=== PATIENT | female | born 1940 | race Caucasian/White ===

== ENCOUNTER 2019-01-27 06:24 | Emergency (ER) | payer MEDICARE ==
[~2019-01-27] VITALS: Ht 165.1 cm; Wt 94.3 kg
[2019-01-27 06:25] VITALS: BP 134/67
[2019-01-27] MEDS ORDERED: CLIN300C8 PO (07:07)
--- NOTE | 2019-01-27 07:09 | PHYS DOC ---
Past Medical History Past Medical History: Anemia, Diabetes-Type II, Hypertension Past Surgical History: Hip Replacement Alcohol Use: None Drug Use: None Adult General Chief Complaint Chief Complaint: DENTAL PROBLEM HPI HPI 78-year-old female presenting with left-sided dental pain with swelling. [facility]. Her physician is Dr. Escudero who asked that the patient be seen by dentistry. She is been having this pain and swelling for 2 days. She denies any fevers or chills. ROS: neg for cp/n/v/f/c. All other review of systems is negative unless otherwise noted in history of present illness. ED course: 78-year-old female presenting with dental pain. She has a periapical abscess in the left lower jaw on examination. We do not have Hospital dentistry funeral location manager. Pts vitals signs are wnl here. Pt is afebrile and well appearing. I spoke with Dr. Escudero and informed him that not have Hospital dentistry funeral location manager. The patient is well-appearing with normal vital signs and I believe can have this performed in the outpatient setting. We'll give the patient a dose of IV antibiotics here in the emergency department. We will discharge patient home with oral antibiotics to follow-up with Hospital dentistry or to return for worsening symptoms or any other concerns by [facility] staff. group home has dentist funeral location manager that comes to see pts. Recommend being seen today or tomorrow. Otherwise if cannot be seen soon we can get the pt transferred to a facility with funeral location manager hospital dentistry. Review of Systems Review of Systems SEE ABOVE. Current Medications Current Medications Current Medications Medications (Trade) Dose Ordered Sig/Chris Start Time Stop Time Status Last Admin Dose Admin Clindamycin Phosphate 50 ml @ 100 mls/hr 1X ONCE 01/27/19 07:15 01/27/19 07:44 Allergies Allergies Allergies Coded Allergies Type Severity Reaction Last Updated Verified Penicillins Allergy Intermediate 01/27/19 Yes Physical Exam Physical Exam SEE ABOVE Constitutional: Well developed, well nourished, no acute distress, non-toxic appearance. [] HENT: Normocephalic, atraumatic, bilateral external ears normal, oropharynx moist, no oral exudates, nose normal. The patient has a. Pt has a periapical abscess in the left jaw. Eyes: PERRLA, EOMI, conjunctiva normal, no discharge. [] Neck: Normal range of motion, no tenderness, supple, no stridor. [] Cardiovascular:Heart rate regular rhythm, no murmur [] Lungs & Thorax: Bilateral breath sounds clear to auscultation [] Abdomen: Bowel sounds normal, soft, no tenderness, no masses, no pulsatile masses. [] Skin: Warm, dry, no erythema, no rash. [] Back: No tenderness, no CVA tenderness. [] Extremities: No tenderness, no cyanosis, no clubbing, ROM intact, no edema. [] Neurologic: Alert and oriented X 3, normal motor function, normal sensory function, no focal deficits noted. [] Psychologic: Affect normal, judgement normal, mood normal. [] Current Patient Data Vital Signs Vital Signs Date Time Temp Pulse Resp B/P (MAP) Pulse Ox O2 Delivery O2 Flow Rate FiO2 01/27/19 06:25 98.0 71 18 134/67 (89) 95 Room Air 98.0 EKG EKG [] Radiology/Procedures Radiology/Procedures [] Course & Med Decision Making Course & Med Decision Making Pertinent Labs and Imaging studies reviewed. (See chart for details) [] Dragon Disclaimer Dragon Disclaimer This electronic medical record was generated, in whole or in part, using a voice recognition dictation system. Departure Departure Impression: Primary Impression: Dental abscess Disposition: 01 HOME, SELF-CARE Condition: STABLE Referrals: NO PCP (PCP) CARD,JESSI Knight DMD In 1-2 days. Additional Instructions: Thank you for allowing us to participate in your care today. Return to the emergency department you have any new or worsening symptoms, or if you are concerned for any reason. Return to emergency department if you have any new or concerning symptoms including but not limited to fever, chills, nausea, vomiting, intractable pain, any new rashes, chest pain, shortness of air, uncontrolled bleeding, difficulty breathing, and/or vision loss. Follow up with your dentist within 1-2 days. Return to the emergency department in 2 days if your unable to see a dentist. Call your Primary Doctor tomorrow and inform them of your visit today. If you do not have a primary care provider we are happy to provide you with a list of our primary care providers [facility] inf [facility]. This condition should be evaluated by your primary care physician and any recommended consulting services for continued management within 2 days after discharge. If at any time, you are having difficulty getting into your primary care doctor or a specialist, return to the emergency department. Scripts Clindamycin Hcl (CLINDAMYCIN HCL) 300 Mg Capsule 1 CAP PO TID, #21 CAP Prov: VENKATESH ISLAS MD 01/27/19 VENKATESH ISLAS MD Jan 27, 2019 07:09
[2019-01-27] MEDS ORDERED: CLINDAMYCIN 600MG PREMIX 50 ML IV ONE (07:15)
--- NOTE | 2019-01-31 10:49 | NUR ---
Late entry made to Medical Record. IV Stop time transcribed from eMAR to IV spreadsheet
== END 2019-01-27 08:34 | disposition home or self-care (01) ==
LOC: ER 06:24
DX: K04.7 Periapical abscess without sinus (principal); E11.9 Type 2 diabetes mellitus without complications; I10 Essential (primary) hypertension; Z88.0 Allergy status to penicillin
CPT/HCPCS: 96365; 99284; J3490

== ENCOUNTER 2019-05-22 14:10 | Emergency (ER) | payer MEDICARE, OTHER ==
[~2019-05-22] VITALS: Ht 165.1 cm; Wt 92.5 kg
[~2019-05-22 14:10] MED LIST: CLIN300C8 PO
[2019-05-22] MEDS ORDERED: CLIN300C8 PO (16:10)
--- NOTE | 2019-05-22 16:11 | PHYS DOC ---
Past Medical History Past Medical History: Anemia, Diabetes-Type II, Hypertension (JOELLEN CARRASQUILLO APRN) Past Surgical History: Hip Replacement (JOELLEN CARRASQUILLO APRN) Alcohol Use: None Drug Use: None (JOELLEN CARRASQUILLO APRN) Attending Signature I have participated in the care of this patient and I have reviewed and agree with all pertinent clinical information above including history, exam, and recommendations. (JOE REY MD) Adult General Chief Complaint Chief Complaint: DENTAL PROBLEM HPI HPI Patient is a 79 year old Female who presents with with dental pain for months. Patient was last seen here for dental pain in January. At that time she had a periapical abscess. Patient has no facial swelling but does have lower front gumline redness and swelling with dental caries. Patient rates her pain at a 10. (JOELLEN CARRASQUILLO APRN) Review of Systems Review of Systems HENT: Denies nasal congestion or sore throat. Dental pain. [] All other systems were reviewed and found to be within normal limits, except as documented in this note. (JOELLEN CARRASQUILLO APRN) Current Medications Current Medications Current Medications Medications (Trade) Dose Ordered Sig/Chris Start Time Stop Time Status Last Admin Dose Admin Clindamycin Phosphate 50 ml @ 100 mls/hr 1X ONCE 05/22/19 17:00 05/22/19 17:29 DC 05/22/19 17:09 100 MLS/HR (JOE REY MD) Allergies Allergies Allergies Coded Allergies Type Severity Reaction Last Updated Verified Penicillins Allergy Intermediate 01/27/19 Yes (JOE REY MD) Physical Exam Physical Exam Constitutional: Well developed, well nourished, no acute distress, non-toxic appearance. [] HENT: Normocephalic, atraumatic, bilateral external ears normal, oropharynx moist, no oral exudates, nose normal. Front lower gumline tenderness and redness. [] Neck: Normal range of motion, no tenderness, supple, no stridor. [] Skin: Warm, dry, no erythema, no rash. [] Neurologic: Alert and oriented X 3, normal motor function, normal sensory function, no focal deficits noted. [] Psychologic: Affect normal, judgement normal, mood normal. [] (JOELLEN CARRASQUILLO APRN) Current Patient Data Vital Signs Vital Signs Date Time Temp Pulse Resp B/P (MAP) Pulse Ox O2 Delivery O2 Flow Rate FiO2 05/22/19 19:10 58 16 121/59 (79) 95 Room Air 05/22/19 14:10 98.4 98.4 (JOE REY MD) Lab Values Laboratory Tests Test 05/22/19 17:05 05/22/19 17:20 White Blood Count 6.5 x10^3/uL (4.0-11.0) Red Blood Count 4.33 x10^6/uL (3.50-5.40) Hemoglobin 12.8 g/dL (12.0-15.5) Hematocrit 38.2 % (36.0-47.0) Mean Corpuscular Volume 88 fL (79-100) Mean Corpuscular Hemoglobin 30 pg (25-35) Mean Corpuscular Hemoglobin Concent 34 g/dL (31-37) Red Cell Distribution Width 17.8 % (11.5-14.5) H Platelet Count 252 x10^3/uL (140-400) Neutrophils (%) (Auto) 57 % (31-73) Lymphocytes (%) (Auto) 30 % (24-48) Monocytes (%) (Auto) 10 % (0-9) H Eosinophils (%) (Auto) 2 % (0-3) Basophils (%) (Auto) 1 % (0-3) Neutrophils # (Auto) 3.8 x10^3/uL (1.8-7.7) Lymphocytes # (Auto) 1.9 x10^3/uL (1.0-4.8) Monocytes # (Auto) 0.7 x10^3/uL (0.0-1.1) Eosinophils # (Auto) 0.1 x10^3/uL (0.0-0.7) Basophils # (Auto) 0.1 x10^3/uL (0.0-0.2) Sodium Level 141 mmol/L (136-145) Potassium Level 4.2 mmol/L (3.5-5.1) Chloride Level 103 mmol/L (98-107) Carbon Dioxide Level 35 mmol/L (21-32) H Anion Gap 3 (6-14) L Blood Urea Nitrogen 20 mg/dL (7-20) Creatinine 1.0 mg/dL (0.6-1.0) Estimated GFR (Cockcroft-Gault) 53.8 Glucose Level 110 mg/dL (70-99) H Calcium Level 9.7 mg/dL (8.5-10.1) Laboratory Tests 05/22/19 17:05 Laboratory Tests 05/22/19 17:20 (JOE REY MD) Lab Values Laboratory Tests Test 05/22/19 17:05 05/22/19 17:20 White Blood Count 6.5 x10^3/uL (4.0-11.0) Red Blood Count 4.33 x10^6/uL (3.50-5.40) Hemoglobin 12.8 g/dL (12.0-15.5) Hematocrit 38.2 % (36.0-47.0) Mean Corpuscular Volume 88 fL (79-100) Mean Corpuscular Hemoglobin 30 pg (25-35) Mean Corpuscular Hemoglobin Concent 34 g/dL (31-37) Red Cell Distribution Width 17.8 % (11.5-14.5) H Platelet Count 252 x10^3/uL (140-400) Neutrophils (%) (Auto) 57 % (31-73) Lymphocytes (%) (Auto) 30 % (24-48) Monocytes (%) (Auto) 10 % (0-9) H Eosinophils (%) (Auto) 2 % (0-3) Basophils (%) (Auto) 1 % (0-3) Neutrophils # (Auto) 3.8 x10^3/uL (1.8-7.7) Lymphocytes # (Auto) 1.9 x10^3/uL (1.0-4.8) Monocytes # (Auto) 0.7 x10^3/uL (0.0-1.1) Eosinophils # (Auto) 0.1 x10^3/uL (0.0-0.7) Basophils # (Auto) 0.1 x10^3/uL (0.0-0.2) Sodium Level 141 mmol/L (136-145) Potassium Level 4.2 mmol/L (3.5-5.1) Chloride Level 103 mmol/L (98-107) Carbon Dioxide Level 35 mmol/L (21-32) H Anion Gap 3 (6-14) L Blood Urea Nitrogen 20 mg/dL (7-20) Creatinine 1.0 mg/dL (0.6-1.0) Estimated GFR (Cockcroft-Gault) 53.8 Glucose Level 110 mg/dL (70-99) H Calcium Level 9.7 mg/dL (8.5-10.1) Laboratory Tests 05/22/19 17:05 Laboratory Tests 05/22/19 17:20 (JOELLEN CARRASQUILLO APRN) EKG EKG [] (JOELLEN CARRASQUILLO APRN) Radiology/Procedures Radiology/Procedures [] (JOELLEN CARRASQUILLO APRN) Course & Med Decision Making Course & Med Decision Making No abscess is seen. No drainage from gumlines. No focal facial or mucosal tenderness with palpation. Afebrile. Patient is nontoxic appearing. Skin pink, warm and dry. Patient will be given Clindamycin and to follow up with a dentist as she had been directed in January. I was called by Nursing staff stating that Dr Pak request was that blood work be done and the patient receive Clindamycin by IV. Blood work unremarkable. Patient discharged home. (JOELLEN CARRASQUILLO APRN) Dragon Disclaimer Dragon Disclaimer This electronic medical record was generated, in whole or in part, using a voice recognition dictation system. (JOELLEN CARRASQUILLO APRN) Departure Departure Impression: Primary Impression: Pain, dental Disposition: 01 HOME, SELF-CARE Condition: STABLE Referrals: UNKNOWN PCP NAME (PCP) CARD,JESSI Knight DMD Patient Instructions: Dental Abscess, Dental Pain Additional Instructions: Follow up with the dentist as soon as possible. Take medications as prescribed. Scripts Oxycodone/Apap 5-325 (PERCOCET 5-325 MG TABLET ) 1 Each Tablet 1 TAB PO PRN Q6HRS PRN for PAIN, #10 TAB 0 Refills Prov: JOELLEN CARRASQUILLO APRN 05/22/19 Clindamycin Hcl (CLINDAMYCIN HCL) 300 Mg Capsule 1 CAP PO TID, #30 CAP Prov: JOELLEN CARRASQUILLO APRN 05/22/19 JOELLEN CARRASQUILLO APRN May 22, 2019 16:11 JOE REY MD May 24, 2019 18:17
[2019-05-22] MEDS ORDERED: OXYC1TAB15 PO (16:51)
--- NOTE | 2019-05-22 16:51 | PHYS DOC ---
Past Medical History Past Medical History: Anemia, Diabetes-Type II, Hypertension (JOELLEN CARRASQUILLO APRN) Past Surgical History: Hip Replacement (JOELLEN CARRASQUILLO APRN) Alcohol Use: None Drug Use: None (JOELLEN CARRASQUILLO APRN) Attending Signature I have participated in the care of this patient and I have reviewed and agree with all pertinent clinical information above including history, exam, and recommendations. (JOE REY MD) Adult General Chief Complaint Chief Complaint: DENTAL PROBLEM HPI HPI Please refer to other note. This entered in error. (JOELLEN CARRASQUILLO APRN) Review of Systems Review of Systems Constitutional: Denies fever or chills [] Eyes: Denies change in visual acuity, redness, or eye pain [] HENT: Denies nasal congestion or sore throat [] Respiratory: Denies cough or shortness of breath [] Cardiovascular: No additional information not addressed in HPI [] GI: Denies abdominal pain, nausea, vomiting, bloody stools or diarrhea [] : Denies dysuria or hematuria [] Musculoskeletal: Denies back pain or joint pain [] Integument: Denies rash or skin lesions [] Neurologic: Denies headache, focal weakness or sensory changes [] Endocrine: Denies polyuria or polydipsia [] All other systems were reviewed and found to be within normal limits, except as documented in this note. (JOELLEN CARRASQUILLO APRN) Current Medications Current Medications Current Medications Medications (Trade) Dose Ordered Sig/Chris Start Time Stop Time Status Last Admin Dose Admin Clindamycin Phosphate 50 ml @ 100 mls/hr 1X ONCE 05/22/19 17:00 05/22/19 17:29 DC 05/22/19 17:09 100 MLS/HR (JOE REY MD) Allergies Allergies Allergies Coded Allergies Type Severity Reaction Last Updated Verified Penicillins Allergy Intermediate 01/27/19 Yes (JOE REY MD) Physical Exam Physical Exam Constitutional: Well developed, well nourished, no acute distress, non-toxic appearance. [] HENT: Normocephalic, atraumatic, bilateral external ears normal, oropharynx moist, no oral exudates, nose normal. [] Eyes: PERRLA, EOMI, conjunctiva normal, no discharge. [] Neck: Normal range of motion, no tenderness, supple, no stridor. [] Cardiovascular:Heart rate regular rhythm, no murmur [] Lungs & Thorax: Bilateral breath sounds clear to auscultation [] Abdomen: Bowel sounds normal, soft, no tenderness, no masses, no pulsatile masses. [] Skin: Warm, dry, no erythema, no rash. [] Back: No tenderness, no CVA tenderness. [] Extremities: No tenderness, no cyanosis, no clubbing, ROM intact, no edema. [] Neurologic: Alert and oriented X 3, normal motor function, normal sensory function, no focal deficits noted. [] Psychologic: Affect normal, judgement normal, mood normal. [] (JOELLEN CARRASQUILLO APRN) Current Patient Data Vital Signs Vital Signs Date Time Temp Pulse Resp B/P (MAP) Pulse Ox O2 Delivery O2 Flow Rate FiO2 05/22/19 19:10 58 16 121/59 (79) 95 Room Air 05/22/19 14:10 98.4 98.4 (JOE REY MD) Lab Values Laboratory Tests Test 05/22/19 17:05 05/22/19 17:20 White Blood Count 6.5 x10^3/uL (4.0-11.0) Red Blood Count 4.33 x10^6/uL (3.50-5.40) Hemoglobin 12.8 g/dL (12.0-15.5) Hematocrit 38.2 % (36.0-47.0) Mean Corpuscular Volume 88 fL (79-100) Mean Corpuscular Hemoglobin 30 pg (25-35) Mean Corpuscular Hemoglobin Concent 34 g/dL (31-37) Red Cell Distribution Width 17.8 % (11.5-14.5) H Platelet Count 252 x10^3/uL (140-400) Neutrophils (%) (Auto) 57 % (31-73) Lymphocytes (%) (Auto) 30 % (24-48) Monocytes (%) (Auto) 10 % (0-9) H Eosinophils (%) (Auto) 2 % (0-3) Basophils (%) (Auto) 1 % (0-3) Neutrophils # (Auto) 3.8 x10^3/uL (1.8-7.7) Lymphocytes # (Auto) 1.9 x10^3/uL (1.0-4.8) Monocytes # (Auto) 0.7 x10^3/uL (0.0-1.1) Eosinophils # (Auto) 0.1 x10^3/uL (0.0-0.7) Basophils # (Auto) 0.1 x10^3/uL (0.0-0.2) Sodium Level 141 mmol/L (136-145) Potassium Level 4.2 mmol/L (3.5-5.1) Chloride Level 103 mmol/L (98-107) Carbon Dioxide Level 35 mmol/L (21-32) H Anion Gap 3 (6-14) L Blood Urea Nitrogen 20 mg/dL (7-20) Creatinine 1.0 mg/dL (0.6-1.0) Estimated GFR (Cockcroft-Gault) 53.8 Glucose Level 110 mg/dL (70-99) H Calcium Level 9.7 mg/dL (8.5-10.1) Laboratory Tests 05/22/19 17:05 Laboratory Tests 05/22/19 17:20 (JOE REY MD) Lab Values Laboratory Tests Test 05/22/19 17:05 05/22/19 17:20 White Blood Count 6.5 x10^3/uL (4.0-11.0) Red Blood Count 4.33 x10^6/uL (3.50-5.40) Hemoglobin 12.8 g/dL (12.0-15.5) Hematocrit 38.2 % (36.0-47.0) Mean Corpuscular Volume 88 fL (79-100) Mean Corpuscular Hemoglobin 30 pg (25-35) Mean Corpuscular Hemoglobin Concent 34 g/dL (31-37) Red Cell Distribution Width 17.8 % (11.5-14.5) H Platelet Count 252 x10^3/uL (140-400) Neutrophils (%) (Auto) 57 % (31-73) Lymphocytes (%) (Auto) 30 % (24-48) Monocytes (%) (Auto) 10 % (0-9) H Eosinophils (%) (Auto) 2 % (0-3) Basophils (%) (Auto) 1 % (0-3) Neutrophils # (Auto) 3.8 x10^3/uL (1.8-7.7) Lymphocytes # (Auto) 1.9 x10^3/uL (1.0-4.8) Monocytes # (Auto) 0.7 x10^3/uL (0.0-1.1) Eosinophils # (Auto) 0.1 x10^3/uL (0.0-0.7) Basophils # (Auto) 0.1 x10^3/uL (0.0-0.2) Sodium Level 141 mmol/L (136-145) Potassium Level 4.2 mmol/L (3.5-5.1) Chloride Level 103 mmol/L (98-107) Carbon Dioxide Level 35 mmol/L (21-32) H Anion Gap 3 (6-14) L Blood Urea Nitrogen 20 mg/dL (7-20) Creatinine 1.0 mg/dL (0.6-1.0) Estimated GFR (Cockcroft-Gault) 53.8 Glucose Level 110 mg/dL (70-99) H Calcium Level 9.7 mg/dL (8.5-10.1) Laboratory Tests 05/22/19 17:05 Laboratory Tests 05/22/19 17:20 (JOELLEN CARRASQUILLO APRN) EKG EKG [] (JOELLEN CARRASQUILLO APRN) Radiology/Procedures Radiology/Procedures [] (JOELLEN CARRASQUILLO APRN) Course & Med Decision Making Course & Med Decision Making Pertinent Labs and Imaging studies reviewed. (See chart for details) [] (JOELLEN CARRASQUILLO APRN) Dragon Disclaimer Dragon Disclaimer This electronic medical record was generated, in whole or in part, using a voice recognition dictation system. (JOELLEN CARRASQUILLO APRN) Departure Departure Impression: Primary Impression: Pain, dental Disposition: HOME/RESIDENCE PRIOR TO ADM Condition: STABLE Referrals: UNKNOWN PCP NAME (PCP) CARD,JESSI Knight DMD Patient Instructions: Dental Pain, Dental Abscess Additional Instructions: Follow up with the dentist as soon as possible. Take medications as prescribed. Scripts Oxycodone/Apap 5-325 (PERCOCET 5-325 MG TABLET ) 1 Each Tablet 1 TAB PO PRN Q6HRS PRN for PAIN, #10 TAB 0 Refills Prov: JOELLEN CARRASQUILLO APRN 05/22/19 Clindamycin Hcl (CLINDAMYCIN HCL) 300 Mg Capsule 1 CAP PO TID, #30 CAP Prov: JOELLEN CARRASQUILLO APRN 05/22/19 JOELLEN CARRASQUILLO APRN May 22, 2019 16:51 JOE REY MD May 24, 2019 18:21
[2019-05-22] MEDS ORDERED: CLINDAMYCIN 600MG PREMIX 50 ML IV ONE (17:00)
[2019-05-22 17:11] LABS: BASO # 0.1 x10^3/uL (0.0-0.2); BASO % 1 % (0-3); EOS # 0.1 x10^3/uL (0.0-0.7); EOS % 2 % (0-3); HEMATOCRIT 38.2 % (36.0-47.0); HEMOGLOBIN 12.8 g/dL (12.0-15.5); LYMPH # 1.9 x10^3/uL (1.0-4.8); LYMPH % 30 % (24-48); MEAN CORPUSCULAR HEMOGLOBIN 30 pg (25-35); MEAN CORPUSCULAR HGB CONC 34 g/dL (31-37); MEAN CORPUSCULAR VOLUME 88 fL (79-100); MONO # 0.7 x10^3/uL (0.0-1.1); MONO % 10 % (0-9); NEUT # 3.8 x10^3/uL (1.8-7.7); NEUT % 57 % (31-73); PLATELET COUNT 252 x10^3/uL (140-400); RED BLOOD COUNT 4.33 x10^6/uL (3.50-5.40); RED CELL DISTRIBUTION WIDTH 17.8 % (11.5-14.5); WHITE BLOOD COUNT 6.5 x10^3/uL (4.0-11.0)
[2019-05-22 17:49] LABS: CALCIUM 9.7 mg/dL (8.5-10.1); GFR 53.8; POTASSIUM 4.2 mmol/L (3.5-5.1)
[2019-05-22 19:10] VITALS: BP 121/59
== END 2019-05-22 19:53 | disposition home or self-care (01) ==
LOC: ER 14:10
DX: K08.89 Other specified disorders of teeth and supporting structures (principal); E11.9 Type 2 diabetes mellitus without complications; I10 Essential (primary) hypertension; Z96.649 Presence of unspecified artificial hip joint; Z88.0 Allergy status to penicillin
CPT/HCPCS: 36415; 80048; 85025; 96365; 99284; J3490

== ENCOUNTER 2020-04-18 13:22 | Inpatient (IN) | payer OTHER ==
[2020-04-18] VITALS (9 sets, daily range): BP systolic 101–126; BP diastolic 62–74
[~2020-04-18] VITALS: Ht 165.1 cm; Wt 93.2 kg
[~2020-04-18 13:22] MED LIST changes: +OXYC1TAB15 PO
--- NOTE | 2020-04-18 13:41 | PHYS DOC ---
Past Medical History Past Medical History: Anemia, Diabetes-Type II, Hypertension Past Surgical History: Hip Replacement Smoking Status: Former Smoker Alcohol Use: None Drug Use: None General Adult EDM: Chief Complaint: SHORTNESS OF BREATH HPI: HPI: Patient is a 80 year old arrives from a assisted with a chief complaint of shortness of breath. Patient tested positive for COVID-19 12 days ago but over the last day has had increased shortness of breath. Symptoms are worse with exertion. Patient was found to have sats in the 50s to 60s for EMS which impro hollie to the 70s and 80s with supplemental oxygen. Patient has some discomfort in her chest and has a cough. History and physical review of systems somewhat limited due to altered mental status Review of Systems: Review of Systems: Constitutional: Denies active fever Eyes: Denies change in visual acuity. [] HENT: Denies nasal congestion or sore throat. [] Respiratory: Complains of cough and shortness of breath Cardiovascular: Complains of chest discomfort GI: Denies abdominal pain, nausea, vomiting, bloody stools or diarrhea. [] : Denies dysuria. [] Musculoskeletal: Denies back pain or joint pain. [] Integument: Denies rash. [] Neurologic: Denies headache, focal weakness or sensory changes. [] Endocrine: Denies polyuria or polydipsia. [] Lymphatic: Denies swollen glands. [] Psychiatric: Denies depression or anxiety. [] Heart Score: Risk Factors: Risk Factors: DM, Current or recent (<one month) smoker, HTN, HLP, family history of CAD, obesity. Risk Scores: Score 0 - 3: 2.5% MACE over next 6 weeks - Discharge Home Score 4 - 6: 20.3% MACE over next 6 weeks - Admit for Clinical Observation Score 7 - 10: 72.7% MACE over next 6 weeks - Early Invasive Strategies Allergies: Allergies: Allergies Coded Allergies Type Severity Reaction Last Updated Verified Penicillins Allergy Intermediate 01/27/19 Yes Physical Exam: PE: Constitutional: Well developed, well nourished, mod respiratory distress, non- toxic appearance. [] HENT: Normocephalic, atraumatic, bilateral external ears normal, no trismus, nose normal. [] Eyes: PERRLA, EOMI, conjunctiva normal, no discharge. [] Neck: Normal range of motion, no tenderness, supple, no stridor. [] Cardiovascular: Tachycardia, irregularly irregular, peripheral pulses intact, cap refill brisk Lungs & Thorax: Labored breathing mild respiratory distress Abdomen: l, soft, no tenderness, no masses, no pulsatile masses. [] Skin: Warm, dry, no erythema, no rash. [] Back: No tenderness, no CVA tenderness. [] Extremities: No tenderness, no cyanosis, no clubbing, ROM intact, no edema. [] Neurologic: Alert and mildly confused, normal motor function, normal sensory function, no focal deficits noted. [] Psychologic: Affect normal, judgement normal, mood normal. [] Current Patient Data: Labs: Laboratory Tests Test 04/18/20 13:35 04/18/20 13:43 O2 Saturation 93 % Arterial Blood pH 7.51 Arterial Blood pCO2 at Patient Temp 34 mmHg Arterial Blood pO2 at Patient Temp 64 mmHg Arterial Blood HCO3 26 mmol/L Arterial Blood Base Excess 4 mmol/L Oxyhemoglobin 91.7 % Methemoglobin 0.5 % Carbon Monoxide, Quantitative 0.7 % FiO2 100 White Blood Count 14.5 x10^3/uL Red Blood Count 4.78 x10^6/uL Hemoglobin 14.1 g/dL Hematocrit 42.3 % Mean Corpuscular Volume 89 fL Mean Corpuscular Hemoglobin 30 pg Mean Corpuscular Hemoglobin Concent 33 g/dL Red Cell Distribution Width 15.4 % Platelet Count 460 x10^3/uL Neutrophils (%) (Auto) 80 % Lymphocytes (%) (Auto) 11 % Monocytes (%) (Auto) 8 % Eosinophils (%) (Auto) 0 % Basophils (%) (Auto) 0 % Neutrophils # (Auto) 11.6 x10^3/uL Lymphocytes # (Auto) 1.6 x10^3/uL Monocytes # (Auto) 1.2 x10^3/uL Eosinophils # (Auto) 0.1 x10^3/uL Basophils # (Auto) 0.0 x10^3/uL Prothrombin Time 15.5 SEC Prothromb Time International Ratio 1.3 Activated Partial Thromboplast Time 29 SEC Fibrinogen 656 mg/dL D-Dimer (Anyi) 2.34 ug/mlFEU Sodium Level 144 mmol/L Potassium Level 4.4 mmol/L Chloride Level 104 mmol/L Carbon Dioxide Level 30 mmol/L Anion Gap 10 Blood Urea Nitrogen 36 mg/dL Creatinine 0.9 mg/dL Estimated GFR (Cockcroft-Gault) 60.6 BUN/Creatinine Ratio 40 Glucose Level 162 mg/dL Lactic Acid Level 1.8 mmol/L Calcium Level 9.3 mg/dL Ferritin 1736 ng/mL Total Bilirubin 0.9 mg/dL Aspartate Amino Transf (AST/SGOT) 24 U/L Alanine Aminotransferase (ALT/SGPT) 27 U/L Alkaline Phosphatase 91 U/L Lactate Dehydrogenase 398 U/L Creatine Kinase 26 U/L Troponin I Quantitative < 0.017 ng/mL C-Reactive Protein, Quantitative 183.1 mg/L EQ-Spa-D-Type Natriuretic Peptide 722 pg/mL Total Protein 6.6 g/dL Albumin 2.2 g/dL Albumin/Globulin Ratio 0.5 Lipase 82 U/L Procalcitonin 0.31 ng/mL Current Medications Medications (Trade) Dose Ordered Sig/Chris Route PRN Reason Start Time Stop Time Status Last Admin Dose Admin Enoxaparin Sodium (Lovenox 80mg Syringe) 80 mg 1X ONCE SQ 04/18/20 14:15 04/18/20 14:16 DC Sterile Water (WATER for RESP) 1,000 ml CONT PRN INH VIA VAPOTHERM DEVICE 04/18/20 14:30 Iohexol (Omnipaque 350 Mg/ml) 100 ml 1X ONCE IV 04/18/20 14:30 04/18/20 14:31 DC Ondansetron HCl (Zofran) 4 mg PRN Q8HRS PRN IV NAUSEA/VOMITING 04/18/20 14:30 04/19/20 14:29 Vital Signs: Vital Signs Date Time Temp Pulse Resp B/P (MAP) Pulse Ox O2 Delivery O2 Flow Rate FiO2 04/18/20 14:12 93 VAPOTHERM 04/18/20 14:03 92 Vapotherm 30.0 04/18/20 14:00 106 122/68 (86) 93 NonRebreather Mask 15.0 04/18/20 13:45 110 125/82 (96) 93 NonRebreather Mask 15.0 04/18/20 13:30 97.9 120 36 121/89 (100) 83 Nasal Cannula 97.9 EKG: EKG: EKG interpreted by me irregularly irregular with a rate of 112 left axis deviation nonspecific ST changes normal QTC [] Radiology/Procedures: Radiology/Procedures: [][facility] [address] [place], [place] [id number] IMAGING REPORT Signed PATIENT: JEANNE MON ACCOUNT: [id number] : 1940 LOCATION: ER AGE: 80 SEX: F EXAM STATUS: REG ER ORD. PHYSICIAN: KEELY MOORE MD REASON: COVID, SOA PROCEDURE: PORTABLE CHEST 1V EXAM: PORTABLE CHEST 1V INDICATION: Reason: COVID, SOA / Spl. Instructions: / History: . TECHNIQUE: Single view COMPARISON: None FINDINGS: Heart is upper normal in size. Great vessels show aortic tortuosity. No hilar or mediastinal mass is appreciated. Lungs show diffuse coarse reticular densities bilaterally with low lung volumes. No pneumothorax. There is haziness to the right lung base that could represent the presence of a small right pleural effusion. Degenerative changes in the bilateral clavicular joints and in the left glenohumeral joint are noted. No acute fracture or aggressive appearing osseous lesions. IMPRESSION: Low lung volumes with diffuse coarse reticular opacities in the lungs bilaterally, compatible with provided history of atypical pneumonia. Electronically signed by: Melvin Carson MD (04/18/2020 2:30 PM) [id number] DICTATED and SIGNED BY: MELVIN CARSON MD DATE: 04/18/20 1430 Course & Med Decision Making: Course & Med Decision Making Pertinent Labs and Imaging studies reviewed. (See chart for details) [] 80-year-old female presents with hypoxic respiratory failure from COVID-19. Patient will be placed on high flow oxygen with improvement. On reassessment the patient's oxygen level is in the low 90s. Patient's labs are very abnormal and consistent with COVID-19. Patient will receive steroids as well as anticoagulation will need a CT angiogram and will be admitted up to the ICU to . Pulmonary will need to be consulted as well COVID-19 CRITERIA: The patient was evaluated during the global COVID-19 pandemic, and that diagnosis was suspected/considered upon their initial presentation. Their evaluation, treatment and testing was consistent with current guidelines for patients who present with complaints or symptoms that may be related to COVID-19. Critical care time was [35] minutes exclusive of procedures. Critical care time was [35] minutes which includes time at bedside, spent in discussion of patient's care with specialist and/or family members, with interpretation of laboratory and/or radiological studies and is exclusive of procedures. Critical condition: Respiratory failure, COVID-19 Critical interventions high flow oxygen, steroids, anticoagulation, admission ICU Dragon Disclaimer: Dragon Disclaimer: This electronic medical record was generated, in whole or in part, using a voice recognition dictation system. Departure Departure Impression: Primary Impression: COVID-19 Additional Impression: Respiratory failure Disposition: ADMITTED INPATIENT Admitting Physician: Madi. Cat Condition: CRITICAL Referrals: UNKNOWN PCP NAME (PCP) Justicifation of Admission Dx: Justifications for Admission: Justification of Admission Dx: Yes Respiratory Failure: Severe Resp Distress KEELY MOORE MD Apr 18, 2020 13:41
[2020-04-18 13:45] LABS: BASE EXCESS COOX 4 mmol/L (-3-3); HCO3 COOX 26 mmol/L (21-28); METHEMOGLOBIN 0.5 % (0.0-1.9); OXYHEMOGLOBIN 91.7 %; PCO2 COOX 34 mmHg (35-46); PO2 COOX 64 mmHg (65-108); SAT O2 COOX 93 % (92-99)
[2020-04-18 13:54] LABS: BASO % 0 % (0-3); EOS # 0.1 x10^3/uL (0.0-0.7); EOS % 0 % (0-3); HEMATOCRIT 42.3 % (36.0-47.0); HEMOGLOBIN 14.1 g/dL (12.0-15.5); LYMPH # 1.6 x10^3/uL (1.0-4.8); LYMPH % 11 % (24-48); MEAN CORPUSCULAR HEMOGLOBIN 30 pg (25-35); MEAN CORPUSCULAR HGB CONC 33 g/dL (31-37); MEAN CORPUSCULAR VOLUME 89 fL (79-100); MONO # 1.2 x10^3/uL (0.0-1.1); MONO % 8 % (0-9); NEUT # 11.6 x10^3/uL (1.8-7.7); NEUT % 80 % (31-73); PLATELET COUNT 460 x10^3/uL (140-400); RED BLOOD COUNT 4.78 x10^6/uL (3.50-5.40); RED CELL DISTRIBUTION WIDTH 15.4 % (11.5-14.5); WHITE BLOOD COUNT 14.5 x10^3/uL (4.0-11.0)
[2020-04-18 14:05] LABS: PROTHROMBIN TIME PATIENT 15.5 SEC (11.7-14.0)
[2020-04-18 14:08] LABS: CALCIUM 9.3 mg/dL (8.5-10.1); CREATININE 0.9 mg/dL (0.6-1.0); D-DIMER 2.34 ug/mlFEU (0.00-0.50); GFR 60.6; POTASSIUM 4.4 mmol/L (3.5-5.1)
--- NOTE | 2020-04-18 14:08 | EKG ---
[facility] [address] [place] [address] Test Date: 2020-04-18 Test Time: 13:33:13 Pat Name: JEANNE MON Department: Room: Gender: F [employer]k [employer]inter: : 1940 Requested By: KEELY MOORE Order Number: [id number] Reading MD: Measurements Intervals [place] Rate: 112 P: ME: QRS: -38 QRSD: 92 T: 78 QT: 316 QTc: 433 Interpretive Statements IRREGULAR RHYTHM, NO P-WAVE FOUND ABNORMAL LEFT AXIS DEVIATION R-S TRANSITION ZONE IN V LEADS DISPLACED TO THE LEFT LEFT ANTERIOR FASCICULAR BLOCK ST & T ABNORMALITY, CONSIDER HIGH LATERAL ISCHEMIA OR LEFT VENTRICULAR STRAIN ABNORMAL ECG RI6.02 No previous ECG available for comparison
[2020-04-18] MEDS ORDERED: IOHEXOL 350 MG/ML 100 ML VIAL. IV ONE (14:30)
[2020-04-18] MEDS ORDERED: ONDANSETRON PF 4 MG/2 ML VIAL. IV PRN (14:30)
--- NOTE | 2020-04-18 14:33 | RAD ---
EXAM: PORTABLE CHEST 1V INDICATION: Reason: COVID, SOA / Spl. Instructions: / History: . TECHNIQUE: Single view COMPARISON: None FINDINGS: Heart is upper normal in size. Great vessels show aortic tortuosity. No hilar or mediastinal mass is appreciated. Lungs show diffuse coarse reticular densities bilaterally with low lung volumes. No pneumothorax. There is haziness to the right lung base that could represent the presence of a small right pleural effusion. Degenerative changes in the bilateral clavicular joints and in the left glenohumeral joint are noted. No acute fracture or aggressive appearing osseous lesions. IMPRESSION: Low lung volumes with diffuse coarse reticular opacities in the lungs bilaterally, compatible with provided history of atypical pneumonia. Electronically signed by: Josefa Carson MD (04/18/2020 2:30 PM) [id number]
[2020-04-18 14:44] LABS: ALBUMIN 2.2 g/dL (3.4-5.0); ALBUMIN/GLOBULIN RATIO 0.5 (1.0-1.7); C-REACTIVE PROTEIN 183.1 mg/L (0-3.3); TOTAL BILIRUBIN 0.9 mg/dL (0.2-1.0); TOTAL PROTEIN 6.6 g/dL (6.4-8.2)
[2020-04-18] MEDS ORDERED: AZITHRMYCN 500MG IVPB FOR OMNI 250 ML IV ONE (15:15)
[2020-04-18] MEDS ORDERED: DEXAMETHASONE SOD PHOS 4 MG/ML VIAL IVP ONE (15:15)
[2020-04-18] MEDS ORDERED: cefTRIAXone IV Push 1 GM VIAL. IVP ONE (15:15)
[2020-04-18 16:10] LABS: BILIRUBIN,URINE MODERATE (NEG); NITRITE,URINE NEGATIVE (NEG); PROTEIN,URINE NEGATIVE (NEG-TRACE)
[2020-04-18 16:23] LABS: CLARITY,URINE CLEAR; COLOR,URINE YELLOW; HYALINE CASTS, URINE FEW /HPF; SQUAMOUS EPITHELIAL CELL,UR MOD /LPF
[2020-04-18 16:24] LABS: BACTERIA,URINE FEW /HPF (0-FEW)
--- NOTE | 2020-04-18 17:19 | RAD ---
Examination: CT ANGIOGRAPHY CHEST History: SOA, COVID POSITIVE. [id number] 100ML / Spl. Instructions: OKAY TO WAIT UNTIL RIGHT BEFORE TRANSPORT TO FLOOR / Comparison/Correlation: 04/18/2020 AP view of the chest Findings: Axial images of the chest were obtained following IV contrast according to pulmonary arteriography protocol. Sagittal and coronal reformatted images were provided. Maximum intensity projection images were provided. Left thyroid goiter noted. Nonenlarged superior mediastinal lymph nodes are present. Calcific involvement of the coronary arteries is noted. Multiple nonenlarged mediastinal lymph nodes are present. Scattered groundglass infiltrates are present throughout the lung jean greater on the right. Atelectatic consolidations are present scattered at the lung bases. Pulmonary arterial vasculature is unremarkable although evaluation may be limited in regions of atelectasis and consolidations. Thoracic aorta is unremarkable. Small hiatal hernia is present. No pneumothorax. No significant effusions. Fatty infiltration of the liver is present. Surgical clips involving the left upper abdomen. Multilevel degenerative disc space narrowing at the cervical spine noted. Bony bridging between 2 consecutive lower right ribs noted. Impression: No pulmonary arterial abnormalities although evaluation may be limited due to extensive patchy groundglass interstitial infiltrates and atelectasis. Infiltrates have a distribution which corresponds with reported history of COVID 19. Small hiatal hernia. PQRS Compliance Statement: One or more of the following individualized dose reduction techniques were utilized for this examination: 1. Automated exposure control 2. Adjustment of the mA and/or kV according to patient size 3. Use of iterative reconstruction technique Electronically signed by: Eulalio Kong MD (04/18/2020 5:16 PM) [facility]
[2020-04-18] MEDS ORDERED: PIP/TAZO PER PHARMACY MC PRN (18:30)
--- NOTE | 2020-04-18 18:41 | NUR ---
Patient admitted from the ER after being brought in by EMS because the retirement she lives in found her to have O2 sats 50-60's. Had been diagnosed a few weeks ago with COVID. Patient placed back on vapotherm @ 35L with 100% oxygen. Lungs are course throughout. No current complaints of cough. Patient found to have nasal cannula out of nose at one point since admit and oxygen 64%. Patient has limited historical information.
[2020-04-18] MEDS ORDERED: CYAN100031 PO (19:23)
[2020-04-18] MEDS ORDERED: POTA10TA6 PO (19:23)
[2020-04-18] MEDS ORDERED: GABA300C18 PO (19:23)
[2020-04-18] MEDS ORDERED: LISI-334 PO (19:23)
[2020-04-18] MEDS ORDERED: METF500T16 PO (19:23)
[2020-04-18] MEDS ORDERED: AMLO5TAB10 PO (19:23)
[2020-04-18] MEDS ORDERED: ASPI-630 PO (19:23)
[2020-04-18] MEDS ORDERED: ACET325T21 PO (19:23)
[2020-04-18] MEDS ORDERED: ERGO500027 PO (19:23)
[2020-04-18] MEDS ORDERED: FURO-68 PO (19:23)
[2020-04-18] MEDS ORDERED: ZINC220T3 PO (19:23)
[2020-04-18] MEDS: methylPREDNISolone SOD SUCC PF 40 MG/ML VIAL. IV SCH (22:26)
[2020-04-19] VITALS (24 sets, daily range): BP systolic 107–134; BP diastolic 56–78
[2020-04-19] MEDS: STERILE WATER for RESP 1,000 ML BAG. INH PRN ×2 (00:26→08:11)
[2020-04-19] MEDS: methylPREDNISolone SOD SUCC PF 40 MG/ML VIAL. IV SCH ×3 (05:58→21:30)
--- NOTE | 2020-04-19 06:47 | PDOC ---
Infectious Disease Note Vital Sign Vital Signs Vital Signs Date Time Temp Pulse Resp B/P (MAP) Pulse Ox O2 Delivery O2 Flow Rate FiO2 04/19/20 05:00 67 18 110/74 (86) 99 vasotherm 35.0 04/19/20 04:00 98.3 98.3 Labs Lab Laboratory Tests Test 04/18/20 13:35 04/18/20 13:43 04/18/20 16:00 O2 Saturation 93 % (92-99) Arterial Blood pH 7.51 (7.35-7.45) Arterial Blood pCO2 at Patient Temp 34 mmHg (35-46) Arterial Blood pO2 at Patient Temp 64 mmHg (65-108) Arterial Blood HCO3 26 mmol/L (21-28) Arterial Blood Base Excess 4 mmol/L (-3-3) Oxyhemoglobin 91.7 % Methemoglobin 0.5 % (0.0-1.9) Carbon Monoxide, Quantitative 0.7 % (0.0-1.9) FiO2 100 White Blood Count 14.5 x10^3/uL (4.0-11.0) Red Blood Count 4.78 x10^6/uL (3.50-5.40) Hemoglobin 14.1 g/dL (12.0-15.5) Hematocrit 42.3 % (36.0-47.0) Mean Corpuscular Volume 89 fL (79-100) Mean Corpuscular Hemoglobin 30 pg (25-35) Mean Corpuscular Hemoglobin Concent 33 g/dL (31-37) Red Cell Distribution Width 15.4 % (11.5-14.5) Platelet Count 460 x10^3/uL (140-400) Neutrophils (%) (Auto) 80 % (31-73) Lymphocytes (%) (Auto) 11 % (24-48) Monocytes (%) (Auto) 8 % (0-9) Eosinophils (%) (Auto) 0 % (0-3) Basophils (%) (Auto) 0 % (0-3) Neutrophils # (Auto) 11.6 x10^3/uL (1.8-7.7) Lymphocytes # (Auto) 1.6 x10^3/uL (1.0-4.8) Monocytes # (Auto) 1.2 x10^3/uL (0.0-1.1) Eosinophils # (Auto) 0.1 x10^3/uL (0.0-0.7) Basophils # (Auto) 0.0 x10^3/uL (0.0-0.2) Prothrombin Time 15.5 SEC (11.7-14.0) Prothromb Time International Ratio 1.3 (0.8-1.1) Activated Partial Thromboplast Time 29 SEC (24-38) Fibrinogen 656 mg/dL (200-440) D-Dimer (Anyi) 2.34 ug/mlFEU (0.00-0.50) Sodium Level 144 mmol/L (136-145) Potassium Level 4.4 mmol/L (3.5-5.1) Chloride Level 104 mmol/L (98-107) Carbon Dioxide Level 30 mmol/L (21-32) Anion Gap 10 (6-14) Blood Urea Nitrogen 36 mg/dL (7-20) Creatinine 0.9 mg/dL (0.6-1.0) Estimated GFR (Cockcroft-Gault) 60.6 BUN/Creatinine Ratio 40 (6-20) Glucose Level 162 mg/dL (70-99) Lactic Acid Level 1.8 mmol/L (0.4-2.0) Calcium Level 9.3 mg/dL (8.5-10.1) Ferritin 1736 ng/mL (8-252) Total Bilirubin 0.9 mg/dL (0.2-1.0) Aspartate Amino Transf (AST/SGOT) 24 U/L (15-37) Alanine Aminotransferase (ALT/SGPT) 27 U/L (14-59) Alkaline Phosphatase 91 U/L (46-116) Lactate Dehydrogenase 398 U/L (81-234) Creatine Kinase 26 U/L (26-192) Troponin I Quantitative < 0.017 ng/mL (0.000-0.055) C-Reactive Protein, Quantitative 183.1 mg/L (0-3.3) IT-Dac-E-Type Natriuretic Peptide 722 pg/mL (0-449) Total Protein 6.6 g/dL (6.4-8.2) Albumin 2.2 g/dL (3.4-5.0) Albumin/Globulin Ratio 0.5 (1.0-1.7) Lipase 82 U/L (73-393) Procalcitonin 0.31 ng/mL (0.00-0.10) Urine Collection Type U cath Urine Color Yellow Urine Clarity Clear Urine pH 5.0 (<5.0-8.0) Urine Specific [place] 1.020 (1.000-1.030) Urine Protein Negative mg/dL (NEG-TRACE) Urine Glucose (UA) Negative mg/dL (NEG) Urine Ketones (Stick) Trace mg/dL (NEG) Urine Blood Moderate (NEG) Urine Nitrite Negative (NEG) Urine Bilirubin Moderate (NEG) Urine Urobilinogen Dipstick 1.0 mg/dL (0.2 mg/dL) Urine Leukocyte Esterase Trace (NEG) Urine RBC 11-20 /HPF (0-2) Urine WBC 1-4 /HPF (0-4) Urine Squamous Epithelial Cells Mod /LPF Urine Bacteria Few /HPF (0-FEW) Urine Hyaline Casts Few /HPF Urine Mucus Mod /LPF Objective Assessment Leukocytosis - urine appears contaminated Acute Hypoxic resp failure on Vapotherm at 35 L and 80 % Fi02 PCN allergy - over 50 yers ago. Uncertain if had Amox or Cephalexin - tolerated Rocephin COVID - almost 2 weeks ago DM H/o Pseudomonas Plan Plan of Care Agree with Zyvox Add Cefepime Recheck COVID type and screen F/u labs and cults Defer need for Remdesivir and plasma per Pulm and repeat COVID test 35 min CC time [facility] records reviewed Thank you # [id number] VIVIAN CARTER MD Apr 19, 2020 06:47
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
[2020-04-19 08:52] LABS: BASO % 0 % (0-3); EOS % 0 % (0-3); HEMATOCRIT 37.2 % (36.0-47.0); HEMOGLOBIN 12.3 g/dL (12.0-15.5); LYMPH # 1.1 x10^3/uL (1.0-4.8); LYMPH % 10 % (24-48); MEAN CORPUSCULAR HEMOGLOBIN 30 pg (25-35); MEAN CORPUSCULAR HGB CONC 33 g/dL (31-37); MEAN CORPUSCULAR VOLUME 89 fL (79-100); MONO # 0.4 x10^3/uL (0.0-1.1); MONO % 3 % (0-9); NEUT # 9.7 x10^3/uL (1.8-7.7); NEUT % 87 % (31-73); PLATELET COUNT 401 x10^3/uL (140-400); RED BLOOD COUNT 4.17 x10^6/uL (3.50-5.40); RED CELL DISTRIBUTION WIDTH 15.6 % (11.5-14.5); WHITE BLOOD COUNT 11.2 x10^3/uL (4.0-11.0)
[2020-04-19 09:06] LABS: MAGNESIUM 2.3 mg/dL (1.8-2.4)
[2020-04-19 09:08] LABS: ALBUMIN/GLOBULIN RATIO 0.4 (1.0-1.7); GFR 53.6; POTASSIUM 3.9 mmol/L (3.5-5.1); TOTAL BILIRUBIN 0.7 mg/dL (0.2-1.0); TOTAL PROTEIN 6.8 g/dL (6.4-8.2)
[2020-04-19] MEDS: ENOXAPARIN 40 MG/0.4 ML SYRINGE. SQ SCH (09:18)
[2020-04-19 10:05] LABS: % BANDS 7 % (0-9); % LYMPHS 7 % (24-48); % MONOS 2 % (0-10); % MYELOS 2 % (0-0); % SEGS 82 % (35-66)
[2020-04-19 10:06] LABS: ANISOCYTOSIS SLIGHT; PLT ESTIMATE ADEQUATE (ADEQUATE); POLYCHROMASIA MOD
[2020-04-19] MEDS ORDERED: DEXTROSE 50% 25 GM / 50ML DISP.SYRIN. IV PRN (10:15)
--- NOTE | 2020-04-19 10:38 | PN ---
DATE: 04/19/2020 SUBJECTIVE: The patient is resting, slightly propped up in bed, in no apparent respiratory distress. She is awake, alert, responding appropriately. She is not as tachypneic yesterday. She is now on Vapotherm at 35 liters and FiO2 of 40%, maintaining her oxygen saturation at 95%. PHYSICAL EXAMINATION: GENERAL: When I examined her, she was pale, no jaundice, cyanosed or thyromegaly. No jugular venous distention. No limb edema. VITAL SIGNS: Her heart rate was 74, blood pressure was 107/73, temperature was 98.3, respiratory rate was 24, and oxygen saturation was 99% on FiO2 of 40% on and 35 liters of oxygen. HEENT: Showed normocephalic, atraumatic. NECK: Supple. HEART: Normal first and second heart sounds. No gallop, rub or murmur. CHEST: Shows central trachea, equal bilateral expansion, air entry, vesicular breath sounds. I could not really appreciate any crepitation or rhonchi. ABDOMEN: Distended, soft, nontender. NEUROLOGIC: She is somewhat confused, but without any obvious lateralizing sign. Her intake and output are incompletely recorded. LABORATORY DATA: As of this morning, her white cell count is down to 11,200, hemoglobin 12, hematocrit 37, MCV 89 and platelet count of 401,000. Her chemistry this morning showed a serum sodium 141, potassium 3.9, chloride 102, bicarbonate 31, anion gap of 8, BUN 43, creatinine 1, estimated GFR was 53 mL per minute. Her glucose was 145, calcium was 9, phosphorus 4, magnesium was 2.3. Total bilirubin, AST, ALT, alkaline phosphatase were normal. Total protein was 6.8, albumin 2. Her procalcitonin was 0.31. Lactic acid yesterday was 1.8. ASSESSMENT: 1. COVID-19 pneumonia. 2. Acute hypoxic respiratory failure, on Vapotherm at 35 liters and FiO2 of 80%. 3. Leukocytosis. 4. Type 2 diabetes with hyperglycemia. PLAN: To continue with IV antibiotic in the form of cefepime, Zyvox and azithromycin. Continue with steroids. We did consult the investigative shopper, Dr. Santos, will decide whether she is a candidate for remdesivir and/or convalescent plasma, meanwhile, I will start her on sliding scale insulin as steroids obviously making her bacteremia worse. MARIELLE YOUSSEF MD DR: SEAMUS/fide JOB#: [id number] / [id number]
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
[2020-04-19] MEDS ORDERED: INSULIN LISPRO 300 UNITS/3 ML VIAL. SQ SCH ×2 (12:00→12:45)
[2020-04-19] MEDS ORDERED: INSULIN LISPRO 300 UNITS/3 ML VIAL. SQ ONE (13:30)
--- NOTE | 2020-04-19 13:33 | PDOC ---
PULMONARY PROGRESS NOTES DATE: 04/19/20 TIME: 13:32 Vitals Vital Signs Date Time Temp Pulse Resp B/P (MAP) Pulse Ox O2 Delivery O2 Flow Rate FiO2 04/19/20 13:00 84 19 114/66 (82) 97 Vapotherm 35.0 04/19/20 12:00 98.4 98.4 Labs Laboratory Tests Test 04/18/20 13:35 04/18/20 13:43 04/18/20 16:00 04/19/20 08:35 O2 Saturation 93 % (92-99) Arterial Blood pH 7.51 (7.35-7.45) Arterial Blood pCO2 at Patient Temp 34 mmHg (35-46) Arterial Blood pO2 at Patient Temp 64 mmHg (65-108) Arterial Blood HCO3 26 mmol/L (21-28) Arterial Blood Base Excess 4 mmol/L (-3-3) Oxyhemoglobin 91.7 % Methemoglobin 0.5 % (0.0-1.9) Carbon Monoxide, Quantitative 0.7 % (0.0-1.9) FiO2 100 White Blood Count 14.5 x10^3/uL (4.0-11.0) 11.2 x10^3/uL (4.0-11.0) Red Blood Count 4.78 x10^6/uL (3.50-5.40) 4.17 x10^6/uL (3.50-5.40) Hemoglobin 14.1 g/dL (12.0-15.5) 12.3 g/dL (12.0-15.5) Hematocrit 42.3 % (36.0-47.0) 37.2 % (36.0-47.0) Mean Corpuscular Volume 89 fL (79-100) 89 fL (79-100) Mean Corpuscular Hemoglobin 30 pg (25-35) 30 pg (25-35) Mean Corpuscular Hemoglobin Concent 33 g/dL (31-37) 33 g/dL (31-37) Red Cell Distribution Width 15.4 % (11.5-14.5) 15.6 % (11.5-14.5) Platelet Count 460 x10^3/uL (140-400) 401 x10^3/uL (140-400) Neutrophils (%) (Auto) 80 % (31-73) 87 % (31-73) Lymphocytes (%) (Auto) 11 % (24-48) 10 % (24-48) Monocytes (%) (Auto) 8 % (0-9) 3 % (0-9) Eosinophils (%) (Auto) 0 % (0-3) 0 % (0-3) Basophils (%) (Auto) 0 % (0-3) 0 % (0-3) Neutrophils # (Auto) 11.6 x10^3/uL (1.8-7.7) 9.7 x10^3/uL (1.8-7.7) Lymphocytes # (Auto) 1.6 x10^3/uL (1.0-4.8) 1.1 x10^3/uL (1.0-4.8) Monocytes # (Auto) 1.2 x10^3/uL (0.0-1.1) 0.4 x10^3/uL (0.0-1.1) Eosinophils # (Auto) 0.1 x10^3/uL (0.0-0.7) 0.0 x10^3/uL (0.0-0.7) Basophils # (Auto) 0.0 x10^3/uL (0.0-0.2) 0.0 x10^3/uL (0.0-0.2) Prothrombin Time 15.5 SEC (11.7-14.0) Prothromb Time International Ratio 1.3 (0.8-1.1) Activated Partial Thromboplast Time 29 SEC (24-38) Fibrinogen 656 mg/dL (200-440) D-Dimer (Anyi) 2.34 ug/mlFEU (0.00-0.50) Sodium Level 144 mmol/L (136-145) 141 mmol/L (136-145) Potassium Level 4.4 mmol/L (3.5-5.1) 3.9 mmol/L (3.5-5.1) Chloride Level 104 mmol/L (98-107) 102 mmol/L (98-107) Carbon Dioxide Level 30 mmol/L (21-32) 31 mmol/L (21-32) Anion Gap 10 (6-14) 8 (6-14) Blood Urea Nitrogen 36 mg/dL (7-20) 43 mg/dL (7-20) Creatinine 0.9 mg/dL (0.6-1.0) 1.0 mg/dL (0.6-1.0) Estimated GFR (Cockcroft-Gault) 60.6 53.6 BUN/Creatinine Ratio 40 (6-20) 43 (6-20) Glucose Level 162 mg/dL (70-99) 245 mg/dL (70-99) Lactic Acid Level 1.8 mmol/L (0.4-2.0) Calcium Level 9.3 mg/dL (8.5-10.1) 9.0 mg/dL (8.5-10.1) Ferritin 1736 ng/mL (8-252) Total Bilirubin 0.9 mg/dL (0.2-1.0) 0.7 mg/dL (0.2-1.0) Aspartate Amino Transf (AST/SGOT) 24 U/L (15-37) 24 U/L (15-37) Alanine Aminotransferase (ALT/SGPT) 27 U/L (14-59) 24 U/L (14-59) Alkaline Phosphatase 91 U/L (46-116) 87 U/L (46-116) Lactate Dehydrogenase 398 U/L (81-234) Creatine Kinase 26 U/L (26-192) Troponin I Quantitative < 0.017 ng/mL (0.000-0.055) C-Reactive Protein, Quantitative 183.1 mg/L (0-3.3) RN-Esv-V-Type Natriuretic Peptide 722 pg/mL (0-449) Total Protein 6.6 g/dL (6.4-8.2) 6.8 g/dL (6.4-8.2) Albumin 2.2 g/dL (3.4-5.0) 2.0 g/dL (3.4-5.0) Albumin/Globulin Ratio 0.5 (1.0-1.7) 0.4 (1.0-1.7) Lipase 82 U/L (73-393) Procalcitonin 0.31 ng/mL (0.00-0.10) Urine Collection Type U cath Urine Color Yellow Urine Clarity Clear Urine pH 5.0 (<5.0-8.0) Urine Specific Crockett 1.020 (1.000-1.030) Urine Protein Negative mg/dL (NEG-TRACE) Urine Glucose (UA) Negative mg/dL (NEG) Urine Ketones (Stick) Trace mg/dL (NEG) Urine Blood Moderate (NEG) Urine Nitrite Negative (NEG) Urine Bilirubin Moderate (NEG) Urine Urobilinogen Dipstick 1.0 mg/dL (0.2 mg/dL) Urine Leukocyte Esterase Trace (NEG) Urine RBC 11-20 /HPF (0-2) Urine WBC 1-4 /HPF (0-4) Urine Squamous Epithelial Cells Mod /LPF Urine Bacteria Few /HPF (0-FEW) Urine Hyaline Casts Few /HPF Urine Mucus Mod /LPF Segmented Neutrophils % 82 % (35-66) Band Neutrophils % 7 % (0-9) Lymphocytes % 7 % (24-48) Monocytes % 2 % (0-10) Myelocytes % 2 % (0-0) Platelet Estimate Adequate (ADEQUATE) Large Platelets Few Polychromasia Mod Anisocytosis Slight Phosphorus Level 4.0 mg/dL (2.6-4.7) Magnesium Level 2.3 mg/dL (1.8-2.4) Test 04/19/20 12:22 Glucose (Fingerstick) 407 mg/dL (70-99) Laboratory Tests Test 04/18/20 13:35 04/18/20 13:43 04/18/20 16:00 04/19/20 08:35 O2 Saturation 93 % (92-99) Arterial Blood pH 7.51 (7.35-7.45) Arterial Blood pCO2 at Patient Temp 34 mmHg (35-46) Arterial Blood pO2 at Patient Temp 64 mmHg (65-108) Arterial Blood HCO3 26 mmol/L (21-28) Arterial Blood Base Excess 4 mmol/L (-3-3) Oxyhemoglobin 91.7 % Methemoglobin 0.5 % (0.0-1.9) Carbon Monoxide, Quantitative 0.7 % (0.0-1.9) FiO2 100 White Blood Count 14.5 x10^3/uL (4.0-11.0) 11.2 x10^3/uL (4.0-11.0) Red Blood Count 4.78 x10^6/uL (3.50-5.40) 4.17 x10^6/uL (3.50-5.40) Hemoglobin 14.1 g/dL (12.0-15.5) 12.3 g/dL (12.0-15.5) Hematocrit 42.3 % (36.0-47.0) 37.2 % (36.0-47.0) Mean Corpuscular Volume 89 fL (79-100) 89 fL (79-100) Mean Corpuscular Hemoglobin 30 pg (25-35) 30 pg (25-35) Mean Corpuscular Hemoglobin Concent 33 g/dL (31-37) 33 g/dL (31-37) Red Cell Distribution Width 15.4 % (11.5-14.5) 15.6 % (11.5-14.5) Platelet Count 460 x10^3/uL (140-400) 401 x10^3/uL (140-400) Neutrophils (%) (Auto) 80 % (31-73) 87 % (31-73) Lymphocytes (%) (Auto) 11 % (24-48) 10 % (24-48) Monocytes (%) (Auto) 8 % (0-9) 3 % (0-9) Eosinophils (%) (Auto) 0 % (0-3) 0 % (0-3) Basophils (%) (Auto) 0 % (0-3) 0 % (0-3) Neutrophils # (Auto) 11.6 x10^3/uL (1.8-7.7) 9.7 x10^3/uL (1.8-7.7) Lymphocytes # (Auto) 1.6 x10^3/uL (1.0-4.8) 1.1 x10^3/uL (1.0-4.8) Monocytes # (Auto) 1.2 x10^3/uL (0.0-1.1) 0.4 x10^3/uL (0.0-1.1) Eosinophils # (Auto) 0.1 x10^3/uL (0.0-0.7) 0.0 x10^3/uL (0.0-0.7) Basophils # (Auto) 0.0 x10^3/uL (0.0-0.2) 0.0 x10^3/uL (0.0-0.2) Prothrombin Time 15.5 SEC (11.7-14.0) Prothromb Time International Ratio 1.3 (0.8-1.1) Activated Partial Thromboplast Time 29 SEC (24-38) Fibrinogen 656 mg/dL (200-440) D-Dimer (Nayi) 2.34 ug/mlFEU (0.00-0.50) Sodium Level 144 mmol/L (136-145) 141 mmol/L (136-145) Potassium Level 4.4 mmol/L (3.5-5.1) 3.9 mmol/L (3.5-5.1) Chloride Level 104 mmol/L (98-107) 102 mmol/L (98-107) Carbon Dioxide Level 30 mmol/L (21-32) 31 mmol/L (21-32) Anion Gap 10 (6-14) 8 (6-14) Blood Urea Nitrogen 36 mg/dL (7-20) 43 mg/dL (7-20) Creatinine 0.9 mg/dL (0.6-1.0) 1.0 mg/dL (0.6-1.0) Estimated GFR (Cockcroft-Gault) 60.6 53.6 BUN/Creatinine Ratio 40 (6-20) 43 (6-20) Glucose Level 162 mg/dL (70-99) 245 mg/dL (70-99) Lactic Acid Level 1.8 mmol/L (0.4-2.0) Calcium Level 9.3 mg/dL (8.5-10.1) 9.0 mg/dL (8.5-10.1) Ferritin 1736 ng/mL (8-252) Total Bilirubin 0.9 mg/dL (0.2-1.0) 0.7 mg/dL (0.2-1.0) Aspartate Amino Transf (AST/SGOT) 24 U/L (15-37) 24 U/L (15-37) Alanine Aminotransferase (ALT/SGPT) 27 U/L (14-59) 24 U/L (14-59) Alkaline Phosphatase 91 U/L (46-116) 87 U/L (46-116) Lactate Dehydrogenase 398 U/L (81-234) Creatine Kinase 26 U/L (26-192) Troponin I Quantitative < 0.017 ng/mL (0.000-0.055) C-Reactive Protein, Quantitative 183.1 mg/L (0-3.3) YI-Zsu-R-Type Natriuretic Peptide 722 pg/mL (0-449) Total Protein 6.6 g/dL (6.4-8.2) 6.8 g/dL (6.4-8.2) Albumin 2.2 g/dL (3.4-5.0) 2.0 g/dL (3.4-5.0) Albumin/Globulin Ratio 0.5 (1.0-1.7) 0.4 (1.0-1.7) Lipase 82 U/L (73-393) Procalcitonin 0.31 ng/mL (0.00-0.10) Urine Collection Type U cath Urine Color Yellow Urine Clarity Clear Urine pH 5.0 (<5.0-8.0) Urine Specific Crockett 1.020 (1.000-1.030) Urine Protein Negative mg/dL (NEG-TRACE) Urine Glucose (UA) Negative mg/dL (NEG) Urine Ketones (Stick) Trace mg/dL (NEG) Urine Blood Moderate (NEG) Urine Nitrite Negative (NEG) Urine Bilirubin Moderate (NEG) Urine Urobilinogen Dipstick 1.0 mg/dL (0.2 mg/dL) Urine Leukocyte Esterase Trace (NEG) Urine RBC 11-20 /HPF (0-2) Urine WBC 1-4 /HPF (0-4) Urine Squamous Epithelial Cells Mod /LPF Urine Bacteria Few /HPF (0-FEW) Urine Hyaline Casts Few /HPF Urine Mucus Mod /LPF Segmented Neutrophils % 82 % (35-66) Band Neutrophils % 7 % (0-9) Lymphocytes % 7 % (24-48) Monocytes % 2 % (0-10) Myelocytes % 2 % (0-0) Platelet Estimate Adequate (ADEQUATE) Large Platelets Few Polychromasia Mod Anisocytosis Slight Phosphorus Level 4.0 mg/dL (2.6-4.7) Magnesium Level 2.3 mg/dL (1.8-2.4) Test 04/19/20 12:22 Glucose (Fingerstick) 407 mg/dL (70-99) Medications Active Scripts Medications Dose Route/Sig Max Daily Dose Days Date Category Dose Instructions Zinc Sulfate 220 Mg Tablet 1 Tab PO DAILY 30 04/18/20 Reported Klor-Con 10 (Potassium Chloride) 10 Meq Tablet.er 1 Tab PO DAILY 30 04/18/20 Reported Metformin Hcl 500 Mg Tablet 500 Mg PO BIDWMEALS 04/18/20 Reported Lisinopril 20 Mg Tablet 1 Tab PO DAILY 04/18/20 Reported Lasix (Furosemide) 40 Mg Tablet 1 Tab PO DAILY 30 04/18/20 Reported Gabapentin (Gabapentin) 300 Mg Capsule 300 Mg PO TID 04/18/20 Reported Vitamin D2 (Ergocalciferol (Vitamin D2)) Unknown Strength Capsule Unknown Dose PO WEEKLY 04/18/20 Reported 50,000 units weekly on tuesdays B-12 (Cyanocobalamin (Vitamin B-12)) 1,000 Mcg Tablet.er 1 Tab PO DAILY 30 04/18/20 Reported Aspirin 81 Mg Tab.chew 1 Tab PO DAILY 04/18/20 Reported Acetaminophen 325 Mg Tablet 2 Tab PO PRN Q4-6HRS PRN 24 04/18/20 Reported Amlodipine Besylate 5 Mg Tablet 5 Mg PO DAILY 04/18/20 Reported Percocet 5-325 Mg Tablet (Oxycodone/Acetaminophen) 1 Each Tablet 1 Tab PO PRN Q6HRS PRN 05/22/19 Rx Impression . Full consult dictated agree with current medical management Respiratory failure secondary to COVID-19 pneumonia BRENDA JAMES MD Apr 19, 2020 13:33
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
--- NOTE | 2020-04-19 14:13 | NUR ---
SS following for discharge planning. SS reviewed pt chart and discussed with pt RN. Pt is LTC resident from [facility], ; fax [phone]. COVID19 positive at [facility]. COVID19 test ordered and currently pending. Pt on Vapotherm, IV Azithromycin, IV Cefepime, and IV Zyvox. SS will continue to follow for discharge planning.
[2020-04-19] MEDS: CEFEPIME HCL IV Push 1 GM VIAL. IVP SCH ×2 (14:33→21:31)
--- NOTE | 2020-04-19 14:56 | NUR ---
Wound Care: Patient is Covid+, therefore picture assessment only. Spoke with RN. Appears to be a Stage I pressure ulcer. RN stated she has been applying Calazime cream, patient self turns, and is currently on an ICU bed. Recommendations to continue current treatment. Will follow up next week for reassessment.
[2020-04-19] MEDS ORDERED: AZITHRMYCN 500MG IVPB FOR OMNI 250 ML IV SCH (15:15)
[2020-04-19] MEDS: AZITHROMYCIN 500 MG in IV NORMAL SALINE 250ML 250 ML IV SCH (16:26)
[2020-04-19] MEDS: INSULIN LISPRO 300 UNITS/3 ML VIAL. SQ SCH (17:15)
[2020-04-19] MEDS: INSULIN GLARGINE SYRINGE. SQ SCH (21:30)
[2020-04-20] VITALS (24 sets, daily range): BP systolic 97–138; BP diastolic 57–92
[2020-04-20 05:31] LABS: HEMATOCRIT 34.6 % (36.0-47.0); RED BLOOD COUNT 3.84 x10^6/uL (3.50-5.40); RED CELL DISTRIBUTION WIDTH 15.3 % (11.5-14.5)
[2020-04-20 05:49] LABS: ALBUMIN 1.9 g/dL (3.4-5.0); ALBUMIN/GLOBULIN RATIO 0.5 (1.0-1.7); CALCIUM 9.2 mg/dL (8.5-10.1); CREATININE 0.9 mg/dL (0.6-1.0); GFR 60.6; TOTAL BILIRUBIN 0.6 mg/dL (0.2-1.0); TOTAL PROTEIN 6.1 g/dL (6.4-8.2)
[2020-04-20] MEDS: CEFEPIME HCL IV Push 1 GM VIAL. IVP SCH ×3 (06:02→22:37)
[2020-04-20] MEDS: methylPREDNISolone SOD SUCC PF 40 MG/ML VIAL. IV SCH ×3 (06:02→22:37)
--- NOTE | 2020-04-20 06:53 | PDOC ---
Infectious Disease Note Subjective Subjective Better. No F/C/S/N/V/D/cough or SOA Has tolerated Jello ROS ROS o/w neg Vital Sign Vital Signs Vital Signs Date Time Temp Pulse Resp B/P (MAP) Pulse Ox O2 Delivery O2 Flow Rate FiO2 04/20/20 06:00 68 21 121/68 (85) 96 Nasal Cannula 6.0 04/20/20 04:00 98.3 98.3 Physical Exam PHYSICAL EXAM CONSTITUTIONAL: She is lying in bed. She is cooperative. She is in no acute distress. HEENT: Her pupils are equal and reactive with normal conjunctivae. Oral cavity, pharynx is clear. NECK: Supple. Good range of motion. LUNGS: Decreased in bases on NC 02 HEART: S1, S2. ABDOMEN: Obese, soft, nontender, nondistended, no guarding or rebound. EXTREMITIES: Without clubbing or cyanosis. No gross edema. SKIN: Warm to touch without generalized rash. NEUROLOGIC: She is nonfocal, moves all extremities. PSYCHIATRIC: Affect is pleasant. Labs Lab Laboratory Tests Test 04/19/20 07:55 04/19/20 08:35 04/19/20 12:22 04/19/20 15:44 Coronavirus (PCR) Detected (Not Detected) White Blood Count 11.2 x10^3/uL (4.0-11.0) Red Blood Count 4.17 x10^6/uL (3.50-5.40) Hemoglobin 12.3 g/dL (12.0-15.5) Hematocrit 37.2 % (36.0-47.0) Mean Corpuscular Volume 89 fL (79-100) Mean Corpuscular Hemoglobin 30 pg (25-35) Mean Corpuscular Hemoglobin Concent 33 g/dL (31-37) Red Cell Distribution Width 15.6 % (11.5-14.5) Platelet Count 401 x10^3/uL (140-400) Neutrophils (%) (Auto) 87 % (31-73) Lymphocytes (%) (Auto) 10 % (24-48) Monocytes (%) (Auto) 3 % (0-9) Eosinophils (%) (Auto) 0 % (0-3) Basophils (%) (Auto) 0 % (0-3) Neutrophils # (Auto) 9.7 x10^3/uL (1.8-7.7) Lymphocytes # (Auto) 1.1 x10^3/uL (1.0-4.8) Monocytes # (Auto) 0.4 x10^3/uL (0.0-1.1) Eosinophils # (Auto) 0.0 x10^3/uL (0.0-0.7) Basophils # (Auto) 0.0 x10^3/uL (0.0-0.2) Segmented Neutrophils % 82 % (35-66) Band Neutrophils % 7 % (0-9) Lymphocytes % 7 % (24-48) Monocytes % 2 % (0-10) Myelocytes % 2 % (0-0) Platelet Estimate Adequate (ADEQUATE) Large Platelets Few Polychromasia Mod Anisocytosis Slight Sodium Level 141 mmol/L (136-145) Potassium Level 3.9 mmol/L (3.5-5.1) Chloride Level 102 mmol/L (98-107) Carbon Dioxide Level 31 mmol/L (21-32) Anion Gap 8 (6-14) Blood Urea Nitrogen 43 mg/dL (7-20) Creatinine 1.0 mg/dL (0.6-1.0) Estimated GFR (Cockcroft-Gault) 53.6 BUN/Creatinine Ratio 43 (6-20) Glucose Level 245 mg/dL (70-99) Calcium Level 9.0 mg/dL (8.5-10.1) Phosphorus Level 4.0 mg/dL (2.6-4.7) Magnesium Level 2.3 mg/dL (1.8-2.4) Total Bilirubin 0.7 mg/dL (0.2-1.0) Aspartate Amino Transf (AST/SGOT) 24 U/L (15-37) Alanine Aminotransferase (ALT/SGPT) 24 U/L (14-59) Alkaline Phosphatase 87 U/L (46-116) Total Protein 6.8 g/dL (6.4-8.2) Albumin 2.0 g/dL (3.4-5.0) Albumin/Globulin Ratio 0.4 (1.0-1.7) Glucose (Fingerstick) 407 mg/dL (70-99) 279 mg/dL (70-99) Test 04/19/20 20:50 04/20/20 03:00 Glucose (Fingerstick) 174 mg/dL (70-99) White Blood Count 12.0 x10^3/uL (4.0-11.0) Red Blood Count 3.84 x10^6/uL (3.50-5.40) Hemoglobin 11.0 g/dL (12.0-15.5) Hematocrit 34.6 % (36.0-47.0) Mean Corpuscular Volume 90 fL (79-100) Mean Corpuscular Hemoglobin 29 pg (25-35) Mean Corpuscular Hemoglobin Concent 32 g/dL (31-37) Red Cell Distribution Width 15.3 % (11.5-14.5) Platelet Count 367 x10^3/uL (140-400) Sodium Level 138 mmol/L (136-145) Potassium Level 4.0 mmol/L (3.5-5.1) Chloride Level 101 mmol/L (98-107) Carbon Dioxide Level 31 mmol/L (21-32) Anion Gap 6 (6-14) Blood Urea Nitrogen 35 mg/dL (7-20) Creatinine 0.9 mg/dL (0.6-1.0) Estimated GFR (Cockcroft-Gault) 60.6 BUN/Creatinine Ratio 39 (6-20) Glucose Level 246 mg/dL (70-99) Calcium Level 9.2 mg/dL (8.5-10.1) Total Bilirubin 0.6 mg/dL (0.2-1.0) Aspartate Amino Transf (AST/SGOT) 34 U/L (15-37) Alanine Aminotransferase (ALT/SGPT) 33 U/L (14-59) Alkaline Phosphatase 85 U/L (46-116) Total Protein 6.1 g/dL (6.4-8.2) Albumin 1.9 g/dL (3.4-5.0) Albumin/Globulin Ratio 0.5 (1.0-1.7) Micro Microbiology 04/18/20 Blood Culture - Preliminary, Resulted NO GROWTH AFTER 1 DAY Objective Assessment Leukocytosis - on steroids Acute Hypoxic resp failure on NC now - COVID + PCN allergy - over 50 yers ago. Uncertain if had Amox or Cephalexin - tolerated Rocephin COVID - almost 2 weeks ago DM H/o Pseudomonas Plan Plan of Care Agree with Zyvox Add Cefepime/cont Azithromycin typed and screened F/u labs and cults Defer need for Remdesivir and plasma per Pulm D/w nursing VIVIAN CARTER MD Apr 20, 2020 06:53
--- NOTE | 2020-04-20 06:56 | PDOC ---
PULMONARY PROGRESS NOTES DATE: 04/20/20 TIME: 06:55 Subjective now on 02 6 lpm, oxygenation better, sob better, has cough no pain Vitals Vital Signs Date Time Temp Pulse Resp B/P (MAP) Pulse Ox O2 Delivery O2 Flow Rate FiO2 04/20/20 06:00 68 21 121/68 (85) 96 Nasal Cannula 6.0 04/20/20 04:00 98.3 98.3 Comments ros as mentioned as above other sys otherwise neg General: Alert HEENT: Other (nc at neck short ) Lungs: Other (no accessory muscle use ) Cardiovascular: S1, S2 Abdomen: Other (obese) Neuro Exam: Alert Extremities: Other (edema) Skin: Other (no rash) Labs Laboratory Tests Test 04/18/20 13:35 04/18/20 13:43 04/18/20 16:00 04/19/20 07:55 O2 Saturation 93 % (92-99) Arterial Blood pH 7.51 (7.35-7.45) Arterial Blood pCO2 at Patient Temp 34 mmHg (35-46) Arterial Blood pO2 at Patient Temp 64 mmHg (65-108) Arterial Blood HCO3 26 mmol/L (21-28) Arterial Blood Base Excess 4 mmol/L (-3-3) Oxyhemoglobin 91.7 % Methemoglobin 0.5 % (0.0-1.9) Carbon Monoxide, Quantitative 0.7 % (0.0-1.9) FiO2 100 White Blood Count 14.5 x10^3/uL (4.0-11.0) Red Blood Count 4.78 x10^6/uL (3.50-5.40) Hemoglobin 14.1 g/dL (12.0-15.5) Hematocrit 42.3 % (36.0-47.0) Mean Corpuscular Volume 89 fL (79-100) Mean Corpuscular Hemoglobin 30 pg (25-35) Mean Corpuscular Hemoglobin Concent 33 g/dL (31-37) Red Cell Distribution Width 15.4 % (11.5-14.5) Platelet Count 460 x10^3/uL (140-400) Neutrophils (%) (Auto) 80 % (31-73) Lymphocytes (%) (Auto) 11 % (24-48) Monocytes (%) (Auto) 8 % (0-9) Eosinophils (%) (Auto) 0 % (0-3) Basophils (%) (Auto) 0 % (0-3) Neutrophils # (Auto) 11.6 x10^3/uL (1.8-7.7) Lymphocytes # (Auto) 1.6 x10^3/uL (1.0-4.8) Monocytes # (Auto) 1.2 x10^3/uL (0.0-1.1) Eosinophils # (Auto) 0.1 x10^3/uL (0.0-0.7) Basophils # (Auto) 0.0 x10^3/uL (0.0-0.2) Prothrombin Time 15.5 SEC (11.7-14.0) Prothromb Time International Ratio 1.3 (0.8-1.1) Activated Partial Thromboplast Time 29 SEC (24-38) Fibrinogen 656 mg/dL (200-440) D-Dimer (Anyi) 2.34 ug/mlFEU (0.00-0.50) Sodium Level 144 mmol/L (136-145) Potassium Level 4.4 mmol/L (3.5-5.1) Chloride Level 104 mmol/L (98-107) Carbon Dioxide Level 30 mmol/L (21-32) Anion Gap 10 (6-14) Blood Urea Nitrogen 36 mg/dL (7-20) Creatinine 0.9 mg/dL (0.6-1.0) Estimated GFR (Cockcroft-Gault) 60.6 BUN/Creatinine Ratio 40 (6-20) Glucose Level 162 mg/dL (70-99) Lactic Acid Level 1.8 mmol/L (0.4-2.0) Calcium Level 9.3 mg/dL (8.5-10.1) Ferritin 1736 ng/mL (8-252) Total Bilirubin 0.9 mg/dL (0.2-1.0) Aspartate Amino Transf (AST/SGOT) 24 U/L (15-37) Alanine Aminotransferase (ALT/SGPT) 27 U/L (14-59) Alkaline Phosphatase 91 U/L (46-116) Lactate Dehydrogenase 398 U/L (81-234) Creatine Kinase 26 U/L (26-192) Troponin I Quantitative < 0.017 ng/mL (0.000-0.055) C-Reactive Protein, Quantitative 183.1 mg/L (0-3.3) BA-Ase-U-Type Natriuretic Peptide 722 pg/mL (0-449) Total Protein 6.6 g/dL (6.4-8.2) Albumin 2.2 g/dL (3.4-5.0) Albumin/Globulin Ratio 0.5 (1.0-1.7) Lipase 82 U/L (73-393) Procalcitonin 0.31 ng/mL (0.00-0.10) Urine Collection Type U cath Urine Color Yellow Urine Clarity Clear Urine pH 5.0 (<5.0-8.0) Urine Specific [place] 1.020 (1.000-1.030) Urine Protein Negative mg/dL (NEG-TRACE) Urine Glucose (UA) Negative mg/dL (NEG) Urine Ketones (Stick) Trace mg/dL (NEG) Urine Blood Moderate (NEG) Urine Nitrite Negative (NEG) Urine Bilirubin Moderate (NEG) Urine Urobilinogen Dipstick 1.0 mg/dL (0.2 mg/dL) Urine Leukocyte Esterase Trace (NEG) Urine RBC 11-20 /HPF (0-2) Urine WBC 1-4 /HPF (0-4) Urine Squamous Epithelial Cells Mod /LPF Urine Bacteria Few /HPF (0-FEW) Urine Hyaline Casts Few /HPF Urine Mucus Mod /LPF Coronavirus (PCR) Detected (Not Detected) Test 04/19/20 08:35 04/19/20 12:22 04/19/20 15:44 04/19/20 20:50 White Blood Count 11.2 x10^3/uL (4.0-11.0) Red Blood Count 4.17 x10^6/uL (3.50-5.40) Hemoglobin 12.3 g/dL (12.0-15.5) Hematocrit 37.2 % (36.0-47.0) Mean Corpuscular Volume 89 fL (79-100) Mean Corpuscular Hemoglobin 30 pg (25-35) Mean Corpuscular Hemoglobin Concent 33 g/dL (31-37) Red Cell Distribution Width 15.6 % (11.5-14.5) Platelet Count 401 x10^3/uL (140-400) Neutrophils (%) (Auto) 87 % (31-73) Lymphocytes (%) (Auto) 10 % (24-48) Monocytes (%) (Auto) 3 % (0-9) Eosinophils (%) (Auto) 0 % (0-3) Basophils (%) (Auto) 0 % (0-3) Neutrophils # (Auto) 9.7 x10^3/uL (1.8-7.7) Lymphocytes # (Auto) 1.1 x10^3/uL (1.0-4.8) Monocytes # (Auto) 0.4 x10^3/uL (0.0-1.1) Eosinophils # (Auto) 0.0 x10^3/uL (0.0-0.7) Basophils # (Auto) 0.0 x10^3/uL (0.0-0.2) Segmented Neutrophils % 82 % (35-66) Band Neutrophils % 7 % (0-9) Lymphocytes % 7 % (24-48) Monocytes % 2 % (0-10) Myelocytes % 2 % (0-0) Platelet Estimate Adequate (ADEQUATE) Large Platelets Few Polychromasia Mod Anisocytosis Slight Sodium Level 141 mmol/L (136-145) Potassium Level 3.9 mmol/L (3.5-5.1) Chloride Level 102 mmol/L (98-107) Carbon Dioxide Level 31 mmol/L (21-32) Anion Gap 8 (6-14) Blood Urea Nitrogen 43 mg/dL (7-20) Creatinine 1.0 mg/dL (0.6-1.0) Estimated GFR (Cockcroft-Gault) 53.6 BUN/Creatinine Ratio 43 (6-20) Glucose Level 245 mg/dL (70-99) Calcium Level 9.0 mg/dL (8.5-10.1) Phosphorus Level 4.0 mg/dL (2.6-4.7) Magnesium Level 2.3 mg/dL (1.8-2.4) Total Bilirubin 0.7 mg/dL (0.2-1.0) Aspartate Amino Transf (AST/SGOT) 24 U/L (15-37) Alanine Aminotransferase (ALT/SGPT) 24 U/L (14-59) Alkaline Phosphatase 87 U/L (46-116) Total Protein 6.8 g/dL (6.4-8.2) Albumin 2.0 g/dL (3.4-5.0) Albumin/Globulin Ratio 0.4 (1.0-1.7) Glucose (Fingerstick) 407 mg/dL (70-99) 279 mg/dL (70-99) 174 mg/dL (70-99) Test 04/20/20 03:00 White Blood Count 12.0 x10^3/uL (4.0-11.0) Red Blood Count 3.84 x10^6/uL (3.50-5.40) Hemoglobin 11.0 g/dL (12.0-15.5) Hematocrit 34.6 % (36.0-47.0) Mean Corpuscular Volume 90 fL (79-100) Mean Corpuscular Hemoglobin 29 pg (25-35) Mean Corpuscular Hemoglobin Concent 32 g/dL (31-37) Red Cell Distribution Width 15.3 % (11.5-14.5) Platelet Count 367 x10^3/uL (140-400) Sodium Level 138 mmol/L (136-145) Potassium Level 4.0 mmol/L (3.5-5.1) Chloride Level 101 mmol/L (98-107) Carbon Dioxide Level 31 mmol/L (21-32) Anion Gap 6 (6-14) Blood Urea Nitrogen 35 mg/dL (7-20) Creatinine 0.9 mg/dL (0.6-1.0) Estimated GFR (Cockcroft-Gault) 60.6 BUN/Creatinine Ratio 39 (6-20) Glucose Level 246 mg/dL (70-99) Calcium Level 9.2 mg/dL (8.5-10.1) Total Bilirubin 0.6 mg/dL (0.2-1.0) Aspartate Amino Transf (AST/SGOT) 34 U/L (15-37) Alanine Aminotransferase (ALT/SGPT) 33 U/L (14-59) Alkaline Phosphatase 85 U/L (46-116) Total Protein 6.1 g/dL (6.4-8.2) Albumin 1.9 g/dL (3.4-5.0) Albumin/Globulin Ratio 0.5 (1.0-1.7) Laboratory Tests Test 04/19/20 07:55 04/19/20 08:35 04/19/20 12:22 04/19/20 15:44 Coronavirus (PCR) Detected (Not Detected) White Blood Count 11.2 x10^3/uL (4.0-11.0) Red Blood Count 4.17 x10^6/uL (3.50-5.40) Hemoglobin 12.3 g/dL (12.0-15.5) Hematocrit 37.2 % (36.0-47.0) Mean Corpuscular Volume 89 fL (79-100) Mean Corpuscular Hemoglobin 30 pg (25-35) Mean Corpuscular Hemoglobin Concent 33 g/dL (31-37) Red Cell Distribution Width 15.6 % (11.5-14.5) Platelet Count 401 x10^3/uL (140-400) Neutrophils (%) (Auto) 87 % (31-73) Lymphocytes (%) (Auto) 10 % (24-48) Monocytes (%) (Auto) 3 % (0-9) Eosinophils (%) (Auto) 0 % (0-3) Basophils (%) (Auto) 0 % (0-3) Neutrophils # (Auto) 9.7 x10^3/uL (1.8-7.7) Lymphocytes # (Auto) 1.1 x10^3/uL (1.0-4.8) Monocytes # (Auto) 0.4 x10^3/uL (0.0-1.1) Eosinophils # (Auto) 0.0 x10^3/uL (0.0-0.7) Basophils # (Auto) 0.0 x10^3/uL (0.0-0.2) Segmented Neutrophils % 82 % (35-66) Band Neutrophils % 7 % (0-9) Lymphocytes % 7 % (24-48) Monocytes % 2 % (0-10) Myelocytes % 2 % (0-0) Platelet Estimate Adequate (ADEQUATE) Large Platelets Few Polychromasia Mod Anisocytosis Slight Sodium Level 141 mmol/L (136-145) Potassium Level 3.9 mmol/L (3.5-5.1) Chloride Level 102 mmol/L (98-107) Carbon Dioxide Level 31 mmol/L (21-32) Anion Gap 8 (6-14) Blood Urea Nitrogen 43 mg/dL (7-20) Creatinine 1.0 mg/dL (0.6-1.0) Estimated GFR (Cockcroft-Gault) 53.6 BUN/Creatinine Ratio 43 (6-20) Glucose Level 245 mg/dL (70-99) Calcium Level 9.0 mg/dL (8.5-10.1) Phosphorus Level 4.0 mg/dL (2.6-4.7) Magnesium Level 2.3 mg/dL (1.8-2.4) Total Bilirubin 0.7 mg/dL (0.2-1.0) Aspartate Amino Transf (AST/SGOT) 24 U/L (15-37) Alanine Aminotransferase (ALT/SGPT) 24 U/L (14-59) Alkaline Phosphatase 87 U/L (46-116) Total Protein 6.8 g/dL (6.4-8.2) Albumin 2.0 g/dL (3.4-5.0) Albumin/Globulin Ratio 0.4 (1.0-1.7) Glucose (Fingerstick) 407 mg/dL (70-99) 279 mg/dL (70-99) Test 04/19/20 20:50 04/20/20 03:00 Glucose (Fingerstick) 174 mg/dL (70-99) White Blood Count 12.0 x10^3/uL (4.0-11.0) Red Blood Count 3.84 x10^6/uL (3.50-5.40) Hemoglobin 11.0 g/dL (12.0-15.5) Hematocrit 34.6 % (36.0-47.0) Mean Corpuscular Volume 90 fL (79-100) Mean Corpuscular Hemoglobin 29 pg (25-35) Mean Corpuscular Hemoglobin Concent 32 g/dL (31-37) Red Cell Distribution Width 15.3 % (11.5-14.5) Platelet Count 367 x10^3/uL (140-400) Sodium Level 138 mmol/L (136-145) Potassium Level 4.0 mmol/L (3.5-5.1) Chloride Level 101 mmol/L (98-107) Carbon Dioxide Level 31 mmol/L (21-32) Anion Gap 6 (6-14) Blood Urea Nitrogen 35 mg/dL (7-20) Creatinine 0.9 mg/dL (0.6-1.0) Estimated GFR (Cockcroft-Gault) 60.6 BUN/Creatinine Ratio 39 (6-20) Glucose Level 246 mg/dL (70-99) Calcium Level 9.2 mg/dL (8.5-10.1) Total Bilirubin 0.6 mg/dL (0.2-1.0) Aspartate Amino Transf (AST/SGOT) 34 U/L (15-37) Alanine Aminotransferase (ALT/SGPT) 33 U/L (14-59) Alkaline Phosphatase 85 U/L (46-116) Total Protein 6.1 g/dL (6.4-8.2) Albumin 1.9 g/dL (3.4-5.0) Albumin/Globulin Ratio 0.5 (1.0-1.7) Medications Active Scripts Medications Dose Route/Sig Max Daily Dose Days Date Category Dose Instructions Zinc Sulfate 220 Mg Tablet 1 Tab PO DAILY 30 04/18/20 Reported Klor-Con 10 (Potassium Chloride) 10 Meq Tablet.er 1 Tab PO DAILY 30 04/18/20 Reported Metformin Hcl 500 Mg Tablet 500 Mg PO BIDWMEALS 04/18/20 Reported Lisinopril 20 Mg Tablet 1 Tab PO DAILY 04/18/20 Reported Lasix (Furosemide) 40 Mg Tablet 1 Tab PO DAILY 30 04/18/20 Reported Gabapentin (Gabapentin) 300 Mg Capsule 300 Mg PO TID 04/18/20 Reported Vitamin D2 (Ergocalciferol (Vitamin D2)) Unknown Strength Capsule Unknown Dose PO WEEKLY 04/18/20 Reported 50,000 units weekly on tuesdays B-12 (Cyanocobalamin (Vitamin B-12)) 1,000 Mcg Tablet.er 1 Tab PO DAILY 30 04/18/20 Reported Aspirin 81 Mg Tab.chew 1 Tab PO DAILY 04/18/20 Reported Acetaminophen 325 Mg Tablet 2 Tab PO PRN Q4-6HRS PRN 24 04/18/20 Reported Amlodipine Besylate 5 Mg Tablet 5 Mg PO DAILY 04/18/20 Reported Percocet 5-325 Mg Tablet (Oxycodone/Acetaminophen) 1 Each Tablet 1 Tab PO PRN Q6HRS PRN 05/22/19 Rx Comments cta reviewed No pulmonary arterial abnormalities although evaluation may be limited due to extensive patchy groundglass interstitial infiltrates and atelectasis. Infiltrates have a distribution which corresponds with reported history of COVID 19. Small hiatal hernia. Impression . IMPRESSION: 1. Acute hypoxemic respiratory failure secondary to COVID-19 pneumonia. 2. COVID-19 pneumonia. 3. Abnormal chest x-ray. 4. Leukocytosis. 5. Diabetes. 6. History of pseudomonas infection. 7. History of abscess of the vulva. 8. CT chest revealing no evidence of PE. Plan . PLAN: 1. Recommend to continue oxygen supplementation. cont 02 titration, oxygenation improved 2. Steroids. 40 mg q 8hrs 3. Lovenox DVT prophylaxis. 4. Continue empiric antibiotics per ID. 5. Advance diet as tolerated. 6. fu Repeat SARS-CoV-2 testing discussed w RAFIA Pedro MD Apr 20, 2020 06:56
[2020-04-20] MEDS: ENOXAPARIN 40 MG/0.4 ML SYRINGE. SQ SCH (07:50)
[2020-04-20] MEDS: INSULIN LISPRO 300 UNITS/3 ML VIAL. SQ SCH ×3 (08:06→17:10)
--- NOTE | 2020-04-20 10:44 | PN ---
DATE: 04/20/2020 SUBJECTIVE: The patient is resting, slightly propped up in bed, in no apparent distress. She is generally much better. Her oxygen requirement is down. She is now on 7 liters by nasal cannula, maintaining her oxygen saturation at 91%. On questioning her, she denied any complaints. Nursing staff did not voice any concern and stated generally had an uneventful night. PHYSICAL EXAMINATION: GENERAL: When I examined her, she was pale, but no jaundice, cyanosis or thyromegaly. No jugular venous distention. No limb edema. VITAL SIGNS: Her heart rate was 72, blood pressure 125/92, temperature was 98.3, respiratory rate 22, and oxygen saturation was 94% on 7 liters of oxygen. HEENT: Showed normocephalic, atraumatic. NECK: Supple. HEART: Showed normal first and second heart sounds. No gallop or murmur. CHEST: Clear to auscultation. No crepitation or rhonchi. ABDOMEN: Distended, soft, nontender. NEUROLOGIC: She is demented, but without any obvious lateralizing sign. LABORATORY DATA: Her intake was 550, output was 300. Her lab work this morning showed a white cell count 12,000, hemoglobin 11, hematocrit 34, MCV 90 and platelet count of 367,000. Her chemistry this morning showed a serum sodium 138, potassium 4, chloride 101, bicarbonate 31, anion gap of 6, BUN 35, creatinine 0.9, estimated GFR was 60 mL per minute, glucose 246, calcium was 9.2. Total bilirubin, AST, ALT, alkaline phosphatase were normal. Total protein 6.1, albumin was 1.9. ASSESSMENT: 1. Acute hypoxic respiratory failure, improving. Her oxygen requirement is down to 7 liters by nasal cannula. She was on Vapotherm. 2. COVID-19 pneumonia. 3. Type 2 diabetes mellitus. PLAN: To continue with IV antibiotic as recommended by Infectious Disease specialist. Continue with oxygen supplementation and titrate as needed. Continue to monitor blood sugars and adjust insulin as needed. Continue with DVT prophylaxis. Continue with steroids. MARIELLE YOUSSEF MD DR: SEAMUS/fide JOB#: [id number] / [id number]
[2020-04-20] MEDS: MULTIVITAMIN with MINERAL TABLET. PO SCH (11:07)
[2020-04-20] MEDS: ASCORBIC ACID 500 MG TABLET PO SCH (11:07)
[2020-04-20] MEDS ORDERED: INSULIN LISPRO 300 UNITS/3 ML VIAL. SQ ONE (12:15)
[2020-04-20] MEDS: AZITHROMYCIN 500 MG in IV NORMAL SALINE 250ML 250 ML IV SCH (14:31)
--- NOTE | 2020-04-20 17:36 | NUR ---
Patient up to chair and bedside commode on 7 L via DE with two person assist. Patient desaturated to low 80's, O2 then turned up to 9 L to assist patient recovery. Patient recovered within 5 minutes and was put back on 7 L. O2 sat 95%
[2020-04-20] MEDS: LACTOBACILLUS RHAMNOSUS GG 1 CAPSULE. PO SCH (20:57)
[2020-04-20] MEDS: INSULIN GLARGINE SYRINGE. SQ SCH (21:01)
[2020-04-21] VITALS (12 sets, daily range): BP systolic 108–145; BP diastolic 59–82
[2020-04-21] MEDS: CEFEPIME HCL IV Push 1 GM VIAL. IVP SCH ×3 (05:32→22:19)
[2020-04-21] MEDS: methylPREDNISolone SOD SUCC PF 40 MG/ML VIAL. IV SCH ×3 (05:32→22:20)
[2020-04-21 05:58] LABS: CREATININE 0.9 mg/dL (0.6-1.0); GFR 60.6; POTASSIUM 4.1 mmol/L (3.5-5.1)
[2020-04-21 05:59] LABS: BASO % 0 % (0-3); EOS % 0 % (0-3); HEMATOCRIT 33.8 % (36.0-47.0); HEMOGLOBIN 11.4 g/dL (12.0-15.5); LYMPH # 0.7 x10^3/uL (1.0-4.8); LYMPH % 7 % (24-48); MEAN CORPUSCULAR HEMOGLOBIN 30 pg (25-35); MEAN CORPUSCULAR HGB CONC 34 g/dL (31-37); MEAN CORPUSCULAR VOLUME 90 fL (79-100); MONO # 0.3 x10^3/uL (0.0-1.1); MONO % 3 % (0-9); NEUT # 8.7 x10^3/uL (1.8-7.7); NEUT % 90 % (31-73); PLATELET COUNT 351 x10^3/uL (140-400); RED BLOOD COUNT 3.77 x10^6/uL (3.50-5.40); RED CELL DISTRIBUTION WIDTH 15.4 % (11.5-14.5); WHITE BLOOD COUNT 9.7 x10^3/uL (4.0-11.0)
--- NOTE | 2020-04-21 06:47 | PDOC ---
PULMONARY PROGRESS NOTES DATE: 04/21/20 TIME: 06:46 Subjective now on 02 6 lpm, oxygenation better, sob better, has cough no pain has loud snoring during sleep Vitals Vital Signs Date Time Temp Pulse Resp B/P (MAP) Pulse Ox O2 Delivery O2 Flow Rate FiO2 04/21/20 06:00 62 30 127/68 (87) 94 Nasal Cannula 5.0 04/21/20 05:00 98.2 98.2 Comments ros as mentioned as above other sys otherwise neg General: Alert HEENT: Other (nc at neck short ) Lungs: Other (no accessory muscle use ) Cardiovascular: S1, S2 Abdomen: Other (obese) Neuro Exam: Alert Extremities: Other (edema) Skin: Other (no rash) Labs Laboratory Tests Test 04/19/20 07:55 04/19/20 08:35 04/19/20 12:22 04/19/20 15:44 Coronavirus (PCR) Detected (Not Detected) White Blood Count 11.2 x10^3/uL (4.0-11.0) Red Blood Count 4.17 x10^6/uL (3.50-5.40) Hemoglobin 12.3 g/dL (12.0-15.5) Hematocrit 37.2 % (36.0-47.0) Mean Corpuscular Volume 89 fL (79-100) Mean Corpuscular Hemoglobin 30 pg (25-35) Mean Corpuscular Hemoglobin Concent 33 g/dL (31-37) Red Cell Distribution Width 15.6 % (11.5-14.5) Platelet Count 401 x10^3/uL (140-400) Neutrophils (%) (Auto) 87 % (31-73) Lymphocytes (%) (Auto) 10 % (24-48) Monocytes (%) (Auto) 3 % (0-9) Eosinophils (%) (Auto) 0 % (0-3) Basophils (%) (Auto) 0 % (0-3) Neutrophils # (Auto) 9.7 x10^3/uL (1.8-7.7) Lymphocytes # (Auto) 1.1 x10^3/uL (1.0-4.8) Monocytes # (Auto) 0.4 x10^3/uL (0.0-1.1) Eosinophils # (Auto) 0.0 x10^3/uL (0.0-0.7) Basophils # (Auto) 0.0 x10^3/uL (0.0-0.2) Segmented Neutrophils % 82 % (35-66) Band Neutrophils % 7 % (0-9) Lymphocytes % 7 % (24-48) Monocytes % 2 % (0-10) Myelocytes % 2 % (0-0) Platelet Estimate Adequate (ADEQUATE) Large Platelets Few Polychromasia Mod Anisocytosis Slight Sodium Level 141 mmol/L (136-145) Potassium Level 3.9 mmol/L (3.5-5.1) Chloride Level 102 mmol/L (98-107) Carbon Dioxide Level 31 mmol/L (21-32) Anion Gap 8 (6-14) Blood Urea Nitrogen 43 mg/dL (7-20) Creatinine 1.0 mg/dL (0.6-1.0) Estimated GFR (Cockcroft-Gault) 53.6 BUN/Creatinine Ratio 43 (6-20) Glucose Level 245 mg/dL (70-99) Calcium Level 9.0 mg/dL (8.5-10.1) Phosphorus Level 4.0 mg/dL (2.6-4.7) Magnesium Level 2.3 mg/dL (1.8-2.4) Total Bilirubin 0.7 mg/dL (0.2-1.0) Aspartate Amino Transf (AST/SGOT) 24 U/L (15-37) Alanine Aminotransferase (ALT/SGPT) 24 U/L (14-59) Alkaline Phosphatase 87 U/L (46-116) Total Protein 6.8 g/dL (6.4-8.2) Albumin 2.0 g/dL (3.4-5.0) Albumin/Globulin Ratio 0.4 (1.0-1.7) Glucose (Fingerstick) 407 mg/dL (70-99) 279 mg/dL (70-99) Test 04/19/20 20:50 04/20/20 03:00 04/20/20 08:03 04/20/20 11:41 Glucose (Fingerstick) 174 mg/dL (70-99) 172 mg/dL (70-99) 364 mg/dL (70-99) White Blood Count 12.0 x10^3/uL (4.0-11.0) Red Blood Count 3.84 x10^6/uL (3.50-5.40) Hemoglobin 11.0 g/dL (12.0-15.5) Hematocrit 34.6 % (36.0-47.0) Mean Corpuscular Volume 90 fL (79-100) Mean Corpuscular Hemoglobin 29 pg (25-35) Mean Corpuscular Hemoglobin Concent 32 g/dL (31-37) Red Cell Distribution Width 15.3 % (11.5-14.5) Platelet Count 367 x10^3/uL (140-400) Sodium Level 138 mmol/L (136-145) Potassium Level 4.0 mmol/L (3.5-5.1) Chloride Level 101 mmol/L (98-107) Carbon Dioxide Level 31 mmol/L (21-32) Anion Gap 6 (6-14) Blood Urea Nitrogen 35 mg/dL (7-20) Creatinine 0.9 mg/dL (0.6-1.0) Estimated GFR (Cockcroft-Gault) 60.6 BUN/Creatinine Ratio 39 (6-20) Glucose Level 246 mg/dL (70-99) Calcium Level 9.2 mg/dL (8.5-10.1) Total Bilirubin 0.6 mg/dL (0.2-1.0) Aspartate Amino Transf (AST/SGOT) 34 U/L (15-37) Alanine Aminotransferase (ALT/SGPT) 33 U/L (14-59) Alkaline Phosphatase 85 U/L (46-116) Total Protein 6.1 g/dL (6.4-8.2) Albumin 1.9 g/dL (3.4-5.0) Albumin/Globulin Ratio 0.5 (1.0-1.7) Test 04/20/20 16:21 04/20/20 21:15 04/21/20 05:00 Glucose (Fingerstick) 317 mg/dL (70-99) 273 mg/dL (70-99) White Blood Count 9.7 x10^3/uL (4.0-11.0) Red Blood Count 3.77 x10^6/uL (3.50-5.40) Hemoglobin 11.4 g/dL (12.0-15.5) Hematocrit 33.8 % (36.0-47.0) Mean Corpuscular Volume 90 fL (79-100) Mean Corpuscular Hemoglobin 30 pg (25-35) Mean Corpuscular Hemoglobin Concent 34 g/dL (31-37) Red Cell Distribution Width 15.4 % (11.5-14.5) Platelet Count 351 x10^3/uL (140-400) Neutrophils (%) (Auto) 90 % (31-73) Lymphocytes (%) (Auto) 7 % (24-48) Monocytes (%) (Auto) 3 % (0-9) Eosinophils (%) (Auto) 0 % (0-3) Basophils (%) (Auto) 0 % (0-3) Neutrophils # (Auto) 8.7 x10^3/uL (1.8-7.7) Lymphocytes # (Auto) 0.7 x10^3/uL (1.0-4.8) Monocytes # (Auto) 0.3 x10^3/uL (0.0-1.1) Eosinophils # (Auto) 0.0 x10^3/uL (0.0-0.7) Basophils # (Auto) 0.0 x10^3/uL (0.0-0.2) Sodium Level 137 mmol/L (136-145) Potassium Level 4.1 mmol/L (3.5-5.1) Chloride Level 103 mmol/L (98-107) Carbon Dioxide Level 32 mmol/L (21-32) Anion Gap 2 (6-14) Blood Urea Nitrogen 28 mg/dL (7-20) Creatinine 0.9 mg/dL (0.6-1.0) Estimated GFR (Cockcroft-Gault) 60.6 Glucose Level 220 mg/dL (70-99) Calcium Level 9.0 mg/dL (8.5-10.1) Laboratory Tests Test 04/20/20 08:03 04/20/20 11:41 04/20/20 16:21 04/20/20 21:15 Glucose (Fingerstick) 172 mg/dL (70-99) 364 mg/dL (70-99) 317 mg/dL (70-99) 273 mg/dL (70-99) Test 04/21/20 05:00 White Blood Count 9.7 x10^3/uL (4.0-11.0) Red Blood Count 3.77 x10^6/uL (3.50-5.40) Hemoglobin 11.4 g/dL (12.0-15.5) Hematocrit 33.8 % (36.0-47.0) Mean Corpuscular Volume 90 fL (79-100) Mean Corpuscular Hemoglobin 30 pg (25-35) Mean Corpuscular Hemoglobin Concent 34 g/dL (31-37) Red Cell Distribution Width 15.4 % (11.5-14.5) Platelet Count 351 x10^3/uL (140-400) Neutrophils (%) (Auto) 90 % (31-73) Lymphocytes (%) (Auto) 7 % (24-48) Monocytes (%) (Auto) 3 % (0-9) Eosinophils (%) (Auto) 0 % (0-3) Basophils (%) (Auto) 0 % (0-3) Neutrophils # (Auto) 8.7 x10^3/uL (1.8-7.7) Lymphocytes # (Auto) 0.7 x10^3/uL (1.0-4.8) Monocytes # (Auto) 0.3 x10^3/uL (0.0-1.1) Eosinophils # (Auto) 0.0 x10^3/uL (0.0-0.7) Basophils # (Auto) 0.0 x10^3/uL (0.0-0.2) Sodium Level 137 mmol/L (136-145) Potassium Level 4.1 mmol/L (3.5-5.1) Chloride Level 103 mmol/L (98-107) Carbon Dioxide Level 32 mmol/L (21-32) Anion Gap 2 (6-14) Blood Urea Nitrogen 28 mg/dL (7-20) Creatinine 0.9 mg/dL (0.6-1.0) Estimated GFR (Cockcroft-Gault) 60.6 Glucose Level 220 mg/dL (70-99) Calcium Level 9.0 mg/dL (8.5-10.1) Medications Active Scripts Medications Dose Route/Sig Max Daily Dose Days Date Category Dose Instructions Zinc Sulfate 220 Mg Tablet 1 Tab PO DAILY 30 04/18/20 Reported Klor-Con 10 (Potassium Chloride) 10 Meq Tablet.er 1 Tab PO DAILY 30 04/18/20 Reported Metformin Hcl 500 Mg Tablet 500 Mg PO BIDWMEALS 04/18/20 Reported Lisinopril 20 Mg Tablet 1 Tab PO DAILY 04/18/20 Reported Lasix (Furosemide) 40 Mg Tablet 1 Tab PO DAILY 30 04/18/20 Reported Gabapentin (Gabapentin) 300 Mg Capsule 300 Mg PO TID 04/18/20 Reported Vitamin D2 (Ergocalciferol (Vitamin D2)) Unknown Strength Capsule Unknown Dose PO WEEKLY 04/18/20 Reported 50,000 units weekly on tuesdays B-12 (Cyanocobalamin (Vitamin B-12)) 1,000 Mcg Tablet.er 1 Tab PO DAILY 30 04/18/20 Reported Aspirin 81 Mg Tab.chew 1 Tab PO DAILY 04/18/20 Reported Acetaminophen 325 Mg Tablet 2 Tab PO PRN Q4-6HRS PRN 24 04/18/20 Reported Amlodipine Besylate 5 Mg Tablet 5 Mg PO DAILY 04/18/20 Reported Percocet 5-325 Mg Tablet (Oxycodone/Acetaminophen) 1 Each Tablet 1 Tab PO PRN Q6HRS PRN 05/22/19 Rx Comments cta reviewed No pulmonary arterial abnormalities although evaluation may be limited due to extensive patchy groundglass interstitial infiltrates and atelectasis. Infiltrates have a distribution which corresponds with reported history of COVID 19. Small hiatal hernia. Impression . IMPRESSION: 1. Acute hypoxemic respiratory failure secondary to COVID-19 pneumonia. 2. COVID-19 pneumonia. 3. Abnormal chest x-ray. 4. Leukocytosis. resolved 5. Diabetes. 6. History of pseudomonas infection. 7. History of abscess of the vulva. 8. CT chest revealing no evidence of PE. 9. snoring obesity ?cha Plan . PLAN: 1. Recommend to continue oxygen supplementation. cont 02 titration, oxygenation improving 2. change Steroids to 40 mg q 12 hrs 3. Lovenox DVT prophylaxis. 4. Continue empiric antibiotics per ID. 5. Advance diet as tolerated. 6. Repeat SARS-CoV-2 testing positive 7. psg as out pt when able discussed w RAFIA Pedro MD Apr 21, 2020 06:47
--- NOTE | 2020-04-21 07:13 | PDOC ---
Infectious Disease Note Subjective Subjective Doing ok but some tired No F/C/S/N/V/D/cough or SOA Vital Sign Vital Signs Vital Signs Date Time Temp Pulse Resp B/P (MAP) Pulse Ox O2 Delivery O2 Flow Rate FiO2 04/21/20 07:00 59 18 135/64 (87) 92 Nasal Cannula 5.0 04/21/20 05:00 98.2 98.2 Physical Exam PHYSICAL EXAM CONSTITUTIONAL: She is lying in bed. She is cooperative. She is in no acute distress. HEENT: Her pupils are equal and reactive with normal conjunctivae. Oral cavity, pharynx is clear. NECK: Supple. Good range of motion. LUNGS: Decreased in bases on NC 02 HEART: S1, S2. ABDOMEN: Obese, soft, nontender, nondistended, no guarding or rebound. EXTREMITIES: Without clubbing or cyanosis. No gross edema. SKIN: Warm to touch without generalized rash. NEUROLOGIC: She is nonfocal, moves all extremities. PSYCHIATRIC: Affect is pleasant. Labs Lab Laboratory Tests Test 04/20/20 08:03 04/20/20 11:41 04/20/20 16:21 04/20/20 21:15 Glucose (Fingerstick) 172 mg/dL (70-99) 364 mg/dL (70-99) 317 mg/dL (70-99) 273 mg/dL (70-99) Test 04/21/20 05:00 White Blood Count 9.7 x10^3/uL (4.0-11.0) Red Blood Count 3.77 x10^6/uL (3.50-5.40) Hemoglobin 11.4 g/dL (12.0-15.5) Hematocrit 33.8 % (36.0-47.0) Mean Corpuscular Volume 90 fL (79-100) Mean Corpuscular Hemoglobin 30 pg (25-35) Mean Corpuscular Hemoglobin Concent 34 g/dL (31-37) Red Cell Distribution Width 15.4 % (11.5-14.5) Platelet Count 351 x10^3/uL (140-400) Neutrophils (%) (Auto) 90 % (31-73) Lymphocytes (%) (Auto) 7 % (24-48) Monocytes (%) (Auto) 3 % (0-9) Eosinophils (%) (Auto) 0 % (0-3) Basophils (%) (Auto) 0 % (0-3) Neutrophils # (Auto) 8.7 x10^3/uL (1.8-7.7) Lymphocytes # (Auto) 0.7 x10^3/uL (1.0-4.8) Monocytes # (Auto) 0.3 x10^3/uL (0.0-1.1) Eosinophils # (Auto) 0.0 x10^3/uL (0.0-0.7) Basophils # (Auto) 0.0 x10^3/uL (0.0-0.2) Sodium Level 137 mmol/L (136-145) Potassium Level 4.1 mmol/L (3.5-5.1) Chloride Level 103 mmol/L (98-107) Carbon Dioxide Level 32 mmol/L (21-32) Anion Gap 2 (6-14) Blood Urea Nitrogen 28 mg/dL (7-20) Creatinine 0.9 mg/dL (0.6-1.0) Estimated GFR (Cockcroft-Gault) 60.6 Glucose Level 220 mg/dL (70-99) Calcium Level 9.0 mg/dL (8.5-10.1) Micro Microbiology 04/18/20 Blood Culture - Preliminary, Resulted NO GROWTH AFTER 1 DAY Objective Assessment Leukocytosis - on steroids - better Acute Hypoxic resp failure on NC now - COVID + PCN allergy - over 50 yers ago. Uncertain if had Amox or Cephalexin - tolerated Rocephin COVID - almost 2 weeks ago DM H/o Pseudomonas Plan Plan of Care Agree with Zyvox Added Cefepime/cont Azithromycin typed and screened F/u labs and cults Defer need for Remdesivir and plasma per Pulm D/w nursing VIVIAN CARTER MD Apr 21, 2020 07:13
[2020-04-21] MEDS: LACTOBACILLUS RHAMNOSUS GG 1 CAPSULE. PO SCH ×2 (08:28→22:19)
[2020-04-21] MEDS: MULTIVITAMIN with MINERAL TABLET. PO SCH (08:28)
[2020-04-21] MEDS: ENOXAPARIN 40 MG/0.4 ML SYRINGE. SQ SCH (08:29)
[2020-04-21] MEDS: INSULIN LISPRO 300 UNITS/3 ML VIAL. SQ SCH ×3 (10:06→17:00)
[2020-04-21] MEDS: ASCORBIC ACID 500 MG TABLET PO SCH (10:07)
--- NOTE | 2020-04-21 10:47 | PN ---
DATE: 04/21/2020 SUBJECTIVE: The patient is resting, slightly propped up in bed, in no apparent distress, awake, alert. She is maintaining her oxygen saturation at 92-95% on 5 liters of oxygen. Nursing staff did not voice any concern except that she is edentulous and she needs a GI soft diet as she remained stable and she will be transferred to the 6th floor. PHYSICAL EXAMINATION: GENERAL: When I examined her this morning, she looked pale, no jaundice, cyanosis or thyromegaly. No jugular venous distention. No limb edema. VITAL SIGNS: Her heart rate was 59, blood pressure was 135/64, temperature was 98.2, respiratory rate was 18, and oxygen saturation was 92% on 5 liters of oxygen. Showed she is normocephalic, atraumatic. NECK: Supple. CARDIAC: Normal first and second heart sounds. No gallop or murmur. CHEST: Showed central trachea, equal bilateral expansion, air entry, vesicular breath sounds. No crepitation or rhonchi anteriorly. ABDOMEN: Distended, soft, nontender. NEUROLOGIC: She is grossly intact. Her intake over the last 24 hours was 1850, output was 750. LABORATORY DATA: As of this morning, her white cell count is down to 9700, hemoglobin 11.4, hematocrit 33.8, MCV 90 and platelet count of 351,000. Her chemistry showed a serum sodium 137, potassium 4.1, chloride 103, bicarbonate 32, anion gap of 2, BUN 28, creatinine 0.9, estimated GFR was 60 mL per minute. Her glucose was 220, calcium was 9. Blood gases. Her coronavirus-2 PCR was detectable on 04/19/2020. Her urine culture showed less than 10,000 colony forming units mcg/mL. Her blood cultures showed no growth after 2 days. ASSESSMENT: 1. Acute hypoxic respiratory failure, improving. Her oxygen requirement is down to 5 liters by nasal cannula. She was on Vapotherm. 2. COVID-19 pneumonia. 3. Type 2 diabetes mellitus. PLAN: To continue with Zyvox, cefepime, and azithromycin. Continue to monitor her blood sugar and adjust insulin as needed. Continue with steroids. The patient is stable and can be transferred to the floor. MARIELLE YOUSSEF MD DR: SEAMUS/fide JOB#: [id number] / [id number]
[2020-04-21] MEDS: AZITHROMYCIN 500 MG in IV NORMAL SALINE 250ML 250 ML IV SCH (14:28)
[2020-04-21] MEDS: INSULIN GLARGINE SYRINGE. SQ SCH (22:20)
[2020-04-22 03:05] VITALS: BP 135/80
[2020-04-22] MEDS: CEFEPIME HCL IV Push 1 GM VIAL. IVP SCH (06:05)
[2020-04-22 07:15] VITALS: BP 156/86
[2020-04-22] MEDS: ASCORBIC ACID 500 MG TABLET PO SCH (08:33)
[2020-04-22] MEDS: MULTIVITAMIN with MINERAL TABLET. PO SCH (08:33)
[2020-04-22] MEDS: LACTOBACILLUS RHAMNOSUS GG 1 CAPSULE. PO SCH ×2 (08:33→19:56)
[2020-04-22] MEDS: ENOXAPARIN 40 MG/0.4 ML SYRINGE. SQ SCH ×2 (08:34→19:56)
[2020-04-22] MEDS: methylPREDNISolone SOD SUCC PF 40 MG/ML VIAL. IV SCH ×2 (08:34→19:56)
[2020-04-22] MEDS: INSULIN LISPRO 300 UNITS/3 ML VIAL. SQ SCH ×3 (08:36→18:02)
--- NOTE | 2020-04-22 10:29 | PDOC ---
Infectious Disease Note Subjective Subjective pt is feeling good, breathing is better ROS ROS no n/v/d/sob/fever Vital Sign Vital Signs Vital Signs Date Time Temp Pulse Resp B/P (MAP) Pulse Ox O2 Delivery O2 Flow Rate FiO2 04/22/20 07:15 98.1 64 20 156/86 (109) 94 Nasal Cannula 3.0 98.1 Physical Exam PHYSICAL EXAM CONSTITUTIONAL: She is lying in bed. She is cooperative. She is in no acute distress. HEENT: Her pupils are equal and reactive with normal conjunctivae. Oral cavity, pharynx is clear. NECK: Supple. Good range of motion. LUNGS: Decreased in bases on NC 02 HEART: S1, S2. ABDOMEN: Obese, soft, nontender, nondistended, no guarding or rebound. EXTREMITIES: Without clubbing or cyanosis. No gross edema. SKIN: Warm to touch without generalized rash. NEUROLOGIC: She is nonfocal, moves all extremities. PSYCHIATRIC: Affect is pleasant. Labs Lab Laboratory Tests Test 04/21/20 16:37 04/21/20 22:25 04/22/20 07:27 Glucose (Fingerstick) 300 mg/dL (70-99) 221 mg/dL (70-99) 212 mg/dL (70-99) Micro Microbiology 04/18/20 Urine Culture - Final, Complete 04/18/20 Blood Culture - Preliminary, Resulted NO GROWTH AFTER 3 DAYS Objective Assessment Leukocytosis - on steroids - better Acute Hypoxic resp failure on NC now - COVID + PCN allergy - over 50 yers ago. Uncertain if had Amox or Cephalexin - tolerated Rocephin COVID - almost 2 weeks ago DM H/o Pseudomonas Plan Plan of Care d/c antibiotics supportive care D/w nursing TALA LEE MD Apr 22, 2020 10:29
--- NOTE | 2020-04-22 11:57 | PDOC ---
PULMONARY PROGRESS NOTES DATE: 04/22/20 TIME: 11:54 Subjective now on 02 3 lpm, oxygenation better, sob better, has cough no pain has loud snoring during sleep Vitals Vital Signs Date Time Temp Pulse Resp B/P (MAP) Pulse Ox O2 Delivery O2 Flow Rate FiO2 04/22/20 07:15 98.1 64 20 156/86 (109) 94 Nasal Cannula 3.0 98.1 Comments ros as mentioned as above other sys otherwise neg General: Alert HEENT: Other (nc at neck short ) Neuro Exam: Alert Skin: Other (no rash) Labs Laboratory Tests Test 04/20/20 16:21 04/20/20 21:15 04/21/20 05:00 04/21/20 08:49 Glucose (Fingerstick) 317 mg/dL (70-99) 273 mg/dL (70-99) 206 mg/dL (70-99) White Blood Count 9.7 x10^3/uL (4.0-11.0) Red Blood Count 3.77 x10^6/uL (3.50-5.40) Hemoglobin 11.4 g/dL (12.0-15.5) Hematocrit 33.8 % (36.0-47.0) Mean Corpuscular Volume 90 fL (79-100) Mean Corpuscular Hemoglobin 30 pg (25-35) Mean Corpuscular Hemoglobin Concent 34 g/dL (31-37) Red Cell Distribution Width 15.4 % (11.5-14.5) Platelet Count 351 x10^3/uL (140-400) Neutrophils (%) (Auto) 90 % (31-73) Lymphocytes (%) (Auto) 7 % (24-48) Monocytes (%) (Auto) 3 % (0-9) Eosinophils (%) (Auto) 0 % (0-3) Basophils (%) (Auto) 0 % (0-3) Neutrophils # (Auto) 8.7 x10^3/uL (1.8-7.7) Lymphocytes # (Auto) 0.7 x10^3/uL (1.0-4.8) Monocytes # (Auto) 0.3 x10^3/uL (0.0-1.1) Eosinophils # (Auto) 0.0 x10^3/uL (0.0-0.7) Basophils # (Auto) 0.0 x10^3/uL (0.0-0.2) Sodium Level 137 mmol/L (136-145) Potassium Level 4.1 mmol/L (3.5-5.1) Chloride Level 103 mmol/L (98-107) Carbon Dioxide Level 32 mmol/L (21-32) Anion Gap 2 (6-14) Blood Urea Nitrogen 28 mg/dL (7-20) Creatinine 0.9 mg/dL (0.6-1.0) Estimated GFR (Cockcroft-Gault) 60.6 Glucose Level 220 mg/dL (70-99) Calcium Level 9.0 mg/dL (8.5-10.1) Test 04/21/20 16:37 04/21/20 22:25 04/22/20 07:27 04/22/20 11:03 Glucose (Fingerstick) 300 mg/dL (70-99) 221 mg/dL (70-99) 212 mg/dL (70-99) 278 mg/dL (70-99) Laboratory Tests Test 04/21/20 16:37 04/21/20 22:25 04/22/20 07:27 04/22/20 11:03 Glucose (Fingerstick) 300 mg/dL (70-99) 221 mg/dL (70-99) 212 mg/dL (70-99) 278 mg/dL (70-99) Medications Active Scripts Medications Dose Route/Sig Max Daily Dose Days Date Category Dose Instructions Zinc Sulfate 220 Mg Tablet 1 Tab PO DAILY 04/18/20 Reported Klor-Con 10 (Potassium Chloride) 10 Meq Tablet.er 1 Tab PO DAILY 04/18/20 Reported Metformin Hcl 500 Mg Tablet 500 Mg PO BIDWMEALS 04/18/20 Reported Lisinopril 20 Mg Tablet 1 Tab PO DAILY 04/18/20 Reported Lasix (Furosemide) 40 Mg Tablet 1 Tab PO DAILY 04/18/20 Reported Gabapentin (Gabapentin) 300 Mg Capsule 300 Mg PO TID 04/18/20 Reported Vitamin D2 (Ergocalciferol (Vitamin D2)) Unknown Strength Capsule Unknown Dose PO WEEKLY 04/18/20 Reported 50,000 units weekly on tuesdays B-12 (Cyanocobalamin (Vitamin B-12)) 1,000 Mcg Tablet.er 1 Tab PO DAILY 04/18/20 Reported Aspirin 81 Mg Tab.chew 1 Tab PO DAILY 04/18/20 Reported Acetaminophen 325 Mg Tablet 2 Tab PO PRN Q4-6HRS PRN 24 04/18/20 Reported Amlodipine Besylate 5 Mg Tablet 5 Mg PO DAILY 04/18/20 Reported Percocet 5-325 Mg Tablet (Oxycodone/Acetaminophen) 1 Each Tablet 1 Tab PO PRN Q6HRS PRN 05/22/19 Rx Comments cta reviewed No pulmonary arterial abnormalities although evaluation may be limited due to extensive patchy groundglass interstitial infiltrates and atelectasis. Infiltrates have a distribution which corresponds with reported history of COVID 19. Small hiatal hernia. Impression . IMPRESSION: 1. Acute hypoxemic respiratory failure secondary to COVID-19 pneumonia. 2. COVID-19 pneumonia. 3. Abnormal chest x-ray. 4. Leukocytosis. resolved 5. Diabetes. 6. History of pseudomonas infection. 7. History of abscess of the vulva. 8. CT chest revealing no evidence of PE. 9. snoring obesity ?cha Plan . PLAN: 1. Recommend to continue oxygen supplementation. cont 02 titration, oxygenation improving 2. change Steroids to 40 mg q 12 hrs 3. Lovenox DVT prophylaxis. 4. Continue empiric antibiotics per ID. 5. Advance diet as tolerated. 6. Repeat SARS-CoV-2 testing positive 7. psg as out pt when able 8. D/W ID, HOLD OFF ON PLASMA DUE TO CONTINUES IMPROVEMENT discussed w FLAVIO Chen MD Apr 22, 2020 11:57
[2020-04-22 11:59] VITALS: BP 144/78
--- NOTE | 2020-04-22 14:58 | PN ---
DATE: 04/22/2020 SUBJECTIVE: The patient is resting, slightly propped up in bed, in no apparent respiratory distress. She is awake, alert and ____ nursing staff, did not voice any concern and stated that she has an uneventful night. PHYSICAL EXAMINATION: GENERAL: When I examined her, she was pale, but no jaundice, cyanosis or thyromegaly. No jugular venous distention or limb edema. VITAL SIGNS: Her heart rate was 64, blood pressure 156/86, temperature 98, respiratory rate 20, and oxygen saturation was 94%, now on 3 liters of oxygen. HEENT: Showed normocephalic, atraumatic. NECK: Supple. HEART: Showed normal first and second heart sounds. No gallop or murmur. CHEST: Clear to auscultation. No crepitation or rhonchi. ABDOMEN: Distended, soft, nontender. NEUROLOGIC: She was awake, alert, demented without any obvious lateralizing sign. Her intake over the last 24 hours was 2840, output was 1140. LABORATORY DATA: Her lab work as of yesterday showed a white cell count 9700, hemoglobin 11, hematocrit 33, MCV was 90 and platelet count 351,000. Her serum sodium was 137, potassium 4.1, chloride 103, bicarbonate 32, anion gap of 2, BUN 28, creatinine 0.9, estimated GFR was 60 mL per minute. Her glucose was 120 and calcium was 9. ASSESSMENT: 1. Acute hypoxic respiratory failure, improving. Her oxygen requirement is down to 3 liters oxygen by nasal cannula. In fact, originally, she was on Vapotherm. 2. COVID-19 pneumonia. 3. Type 2 diabetes mellitus. PLAN: Is to continue with Zyvox, cefepime, and azithromycin. Continue to monitor blood sugar and adjust insulin as needed. Continue with steroids. The patient is steadily improved, hopefully, she can be discharged back, perhaps tomorrow. MARIELLE YOUSSEF MD DR: SEAMUS/fide JOB#: [id number] / [id number]
[2020-04-22 15:04] VITALS: BP 149/78
--- NOTE | 2020-04-22 16:55 | NUR ---
SW following. Spoke with RN and reviewed chart. Pt resides in LTC at [facility], , (fax). Pt on IV Dextrose, 3l 02, COVID positive. [facility] phoned and faxed updated clinicals to [facility] today.
[2020-04-22 19:55] VITALS: BP 128/76
[2020-04-22] MEDS: INSULIN GLARGINE SYRINGE. SQ SCH (21:22)
[2020-04-22 23:22] VITALS: BP 143/87
[2020-04-23 03:26] VITALS: BP 142/83
[2020-04-23 06:25] LABS: HEMOGLOBIN 12.3 g/dL (12.0-15.5); RED BLOOD COUNT 4.14 x10^6/uL (3.50-5.40); RED CELL DISTRIBUTION WIDTH 15.6 % (11.5-14.5); WHITE BLOOD COUNT 8.9 x10^3/uL (4.0-11.0)
[2020-04-23 07:14] VITALS: BP 136/75
[2020-04-23] MEDS: methylPREDNISolone SOD SUCC PF 40 MG/ML VIAL. IV SCH (08:52)
[2020-04-23] MEDS: MULTIVITAMIN with MINERAL TABLET. PO SCH (08:53)
[2020-04-23] MEDS: LACTOBACILLUS RHAMNOSUS GG 1 CAPSULE. PO SCH (08:53)
[2020-04-23] MEDS: ENOXAPARIN 40 MG/0.4 ML SYRINGE. SQ SCH (08:53)
[2020-04-23] MEDS: ASCORBIC ACID 500 MG TABLET PO SCH (08:53)
[2020-04-23] MEDS: INSULIN LISPRO 300 UNITS/3 ML VIAL. SQ SCH ×2 (08:55→12:12)
--- NOTE | 2020-04-23 09:23 | PDOC ---
PULMONARY PROGRESS NOTES DATE: 04/23/20 TIME: 09:22 Subjective now on 02 3 lpm, oxygenation better, sob better, has cough no pain has loud snoring during sleep Vitals Vital Signs Date Time Temp Pulse Resp B/P (MAP) Pulse Ox O2 Delivery O2 Flow Rate FiO2 04/23/20 07:14 97.7 68 20 136/75 (95) 95 Nasal Cannula 3.0 97.7 Comments ros as mentioned as above other sys otherwise neg General: Alert, No acute distress Neuro Exam: Alert Skin: Other (no rash) Labs Laboratory Tests Test 04/21/20 16:37 04/21/20 22:25 04/22/20 07:27 04/22/20 11:03 Glucose (Fingerstick) 300 mg/dL (70-99) 221 mg/dL (70-99) 212 mg/dL (70-99) 278 mg/dL (70-99) Test 04/22/20 16:11 04/22/20 20:46 04/23/20 05:30 04/23/20 07:50 Glucose (Fingerstick) 282 mg/dL (70-99) 215 mg/dL (70-99) 160 mg/dL (70-99) White Blood Count 8.9 x10^3/uL (4.0-11.0) Red Blood Count 4.14 x10^6/uL (3.50-5.40) Hemoglobin 12.3 g/dL (12.0-15.5) Hematocrit 37.0 % (36.0-47.0) Mean Corpuscular Volume 89 fL (79-100) Mean Corpuscular Hemoglobin 30 pg (25-35) Mean Corpuscular Hemoglobin Concent 33 g/dL (31-37) Red Cell Distribution Width 15.6 % (11.5-14.5) Platelet Count 336 x10^3/uL (140-400) Laboratory Tests Test 04/22/20 11:03 04/22/20 16:11 04/22/20 20:46 04/23/20 05:30 Glucose (Fingerstick) 278 mg/dL (70-99) 282 mg/dL (70-99) 215 mg/dL (70-99) White Blood Count 8.9 x10^3/uL (4.0-11.0) Red Blood Count 4.14 x10^6/uL (3.50-5.40) Hemoglobin 12.3 g/dL (12.0-15.5) Hematocrit 37.0 % (36.0-47.0) Mean Corpuscular Volume 89 fL (79-100) Mean Corpuscular Hemoglobin 30 pg (25-35) Mean Corpuscular Hemoglobin Concent 33 g/dL (31-37) Red Cell Distribution Width 15.6 % (11.5-14.5) Platelet Count 336 x10^3/uL (140-400) Test 04/23/20 07:50 Glucose (Fingerstick) 160 mg/dL (70-99) Medications Active Scripts Medications Dose Route/Sig Max Daily Dose Days Date Category Dose Instructions Zinc Sulfate 220 Mg Tablet 1 Tab PO DAILY 30 04/18/20 Reported Klor-Con 10 (Potassium Chloride) 10 Meq Tablet.er 1 Tab PO DAILY 30 04/18/20 Reported Metformin Hcl 500 Mg Tablet 500 Mg PO BIDWMEALS 04/18/20 Reported Lisinopril 20 Mg Tablet 1 Tab PO DAILY 04/18/20 Reported Lasix (Furosemide) 40 Mg Tablet 1 Tab PO DAILY 30 04/18/20 Reported Gabapentin (Gabapentin) 300 Mg Capsule 300 Mg PO TID 04/18/20 Reported Vitamin D2 (Ergocalciferol (Vitamin D2)) Unknown Strength Capsule Unknown Dose PO WEEKLY 04/18/20 Reported 50,000 units weekly on tuesdays B-12 (Cyanocobalamin (Vitamin B-12)) 1,000 Mcg Tablet.er 1 Tab PO DAILY 30 04/18/20 Reported Aspirin 81 Mg Tab.chew 1 Tab PO DAILY 04/18/20 Reported Acetaminophen 325 Mg Tablet 2 Tab PO PRN Q4-6HRS PRN 24 04/18/20 Reported Amlodipine Besylate 5 Mg Tablet 5 Mg PO DAILY 04/18/20 Reported Percocet 5-325 Mg Tablet (Oxycodone/Acetaminophen) 1 Each Tablet 1 Tab PO PRN Q6HRS PRN 05/22/19 Rx Comments cta reviewed No pulmonary arterial abnormalities although evaluation may be limited due to extensive patchy groundglass interstitial infiltrates and atelectasis. Infiltrates have a distribution which corresponds with reported history of COVID 19. Small hiatal hernia. Impression . IMPRESSION: 1. Acute hypoxemic respiratory failure secondary to COVID-19 pneumonia. 2. COVID-19 pneumonia. 3. Abnormal chest x-ray. 4. Leukocytosis. resolved 5. Diabetes. 6. History of pseudomonas infection. 7. History of abscess of the vulva. 8. CT chest revealing no evidence of PE. 9. snoring obesity ?cha Plan . PLAN: 1. Recommend to continue oxygen supplementation. cont 02 titration, oxygenation improving 2. change Steroids to 40 mg q 24 hr 3. Lovenox DVT prophylaxis. 4. Continue empiric antibiotics per ID. 5. Advance diet as tolerated. 6. Repeat SARS-CoV-2 testing positive 7. psg as out pt when able 8. D/W ID, HOLD OFF ON PLASMA DUE TO CONTINUE IMPROVEMENT discussed w torres rt FLAVIO CHÁVEZ MD Apr 23, 2020 09:23
[2020-04-23 09:46] LABS: ALBUMIN 2.3 g/dL (3.4-5.0); ALBUMIN/GLOBULIN RATIO 0.8 (1.0-1.7); CALCIUM 8.5 mg/dL (8.5-10.1); CREATININE 0.8 mg/dL (0.6-1.0); GFR 69.4; POTASSIUM 4.5 mmol/L (3.5-5.1); TOTAL BILIRUBIN 0.8 mg/dL (0.2-1.0); TOTAL PROTEIN 5.3 g/dL (6.4-8.2)
--- NOTE | 2020-04-23 09:57 | NUR ---
[facility] following. Spoke with RN and reviewed chart. Pt resides in LTC at [facility]. Spoke with Talha the [facility] and they can accept pt back today. SW awaiting possible discharge orders from Dr. Deluca. Pt remains on 3l 02 and IV Dextrose. [facility] following. Addendum: 04/23/20 at 1249 by SPENCER GARIBAY Discharge orders obtained from Dr. Deluca. [facility] phoned and faxed discharge orders to [facility]. Packet of clinicals with scripts ready to send with pt. RN to call reportMehreen George the facility [facility] arranged for wc transport with 3l 02 at 1500. No further SW needs.
[2020-04-23 11:20] VITALS: BP 136/75
[2020-04-23] MEDS ORDERED: PRED20TA PO (12:01)
[2020-04-23] MEDS ORDERED: INSU100V8 SQ (12:02)
--- NOTE | 2020-04-23 12:05 | SNU/HH DC ---
DISCHARGE ORDERS DISCHARGE INFORMATION: DISCHARGE DATE: Apr 23, 2020 FINAL DIAGNOSIS Problems Medical Problems: (1) COVID-19 Status: Acute (2) Respiratory failure Status: Acute CONDITION ON DISCHARGE: Stable CODE STATUS: Code Status: Full GROUP HOME: SNF STAY <30 DAYS: Yes POST DISCHARGE ORDERS: ACTIVITY ORDERS: Activity as tolerated DIET AFTER DISCHARGE: ADA TREATMENT/EQUIPMENT ORDERS: RESPIRATORY EQUIPMENT NEEDED: Oxygen Physical Therapy For: Evalulation/Treatment Occupational Therapy For: Evaluation/Treatment DISCHARGE MEDICATIONS: Home Meds Active Scripts Insulin Glargine,Hum.rec.anlog (LANTUS) 100 Unit/1 Ml Vial, 10 UNIT SQ QHS for DM for 30 Days, #15 VIAL Prov:MARIELLE YOUSSEF MD 04/23/20 Prednisone (PREDNISONE) 20 Mg Tablet, 1 TAB PO DAILY for COVID 19 PNEUMONIA, #5 TAB Prov:MARIELLE YOUSSEF MD 04/23/20 Oxycodone/Apap 5-325 (PERCOCET 5-325 MG TABLET ) 1 Each Tablet, 1 TAB PO PRN Q6HRS PRN for PAIN, #10 TAB 0 Refills Prov:JOELLEN CARRASQIULLO CORPORATE DIRECTOR 05/22/19 Reported Medications Zinc Sulfate (ZINC SULFATE) 220 Mg Tablet, 1 TAB PO DAILY for supplement for 30 Days, #30 TAB 0 Refills 04/18/20 Potassium Chloride (Klor-Con 10) 10 Meq Tablet.er, 1 TAB PO DAILY for diuretic for 30 Days, #30 TAB 0 Refills 04/18/20 Metformin Hcl (METFORMIN HCL) 500 Mg Tablet, 500 MG PO BIDWMEALS for ANTI- DIABETIC, TAB 0 Refills 04/18/20 Lisinopril (LISINOPRIL) 20 Mg Tablet, 1 TAB PO DAILY for bp, #30 TAB 5 Refills 04/18/20 Furosemide (LASIX) 40 Mg Tablet, 1 TAB PO DAILY for edema for 30 Days, #30 TAB 0 Refills 04/18/20 Gabapentin (GABAPENTIN ) 300 Mg Capsule, 300 MG PO TID for NEUROGENIC PAIN, CAP 04/18/20 Ergocalciferol (Vitamin D2) (Vitamin D2) Unknown Strength Capsule, PO WEEKLY for supplement, CAP 50,000 units weekly on tuesdays04/18/20 Cyanocobalamin (Vitamin B-12) (B-12) 1,000 Mcg Tablet.er, 1 TAB PO DAILY for anemia for 30 Days, #30 TAB 0 Refills 04/18/20 Aspirin (ASPIRIN) 81 Mg Tab.chew, 1 TAB PO DAILY for antiplatelet, #30 TAB 3 Refills 04/18/20 Acetaminophen (ACETAMINOPHEN) 325 Mg Tablet, 2 TAB PO PRN Q4-6HRS PRN for pain or fever for 24 Days, #100 TAB 0 Refills 04/18/20 Amlodipine Besylate (AMLODIPINE BESYLATE) 5 Mg Tablet, 5 MG PO DAILY for bp, TAB 04/18/20 MARIELLE YOUSSEF MD Apr 23, 2020 12:05
--- NOTE | 2020-04-23 12:41 | DS ---
DATE OF DISCHARGE: 04/23/2020 HOSPITAL COURSE: The patient is a 80-year-old female patient, a resident at [facility], who apparently was tested positive for COVID-19 about 2 days prior to admission. Over the last few days prior to admission, she had increased shortness of breath. Symptoms are worse with exertion. The patient was found to be extremely hypoxic with oxygen saturation of 50-60% by EMS that improved to 70-80% with supplemental oxygen. She did complain of some discomfort in her chest and has a cough. She was evaluated in the Emergency Room. Her lab work was including a chest x-ray, CT scan of the chest with PE protocol were done that were negative. The patient was admitted with COVID-19 pneumonia as well as acute hypoxic respiratory failure. She was treated with IV antibiotic for possible healthcare-associated pneumonia as well as IV steroids. She did receive convalescent plasma and did very well. She was initially on Vapotherm requiring an FiO2 of 80 and 30 L of oxygen that has gradually improved. She is now on 3 L of oxygen, maintaining her oxygen saturation at 93%. On questioning her this morning, she denied any complaints, in particular denied any chest pain, shortness of breath, cough, phlegm, or hemoptysis. PHYSICAL EXAMINATION: GENERAL: When I examined her, she looked well, slightly pale, but no jaundice, cyanosis, or thyromegaly. No jugular venous distension. No limb edema. VITAL SIGNS: Her heart rate was 71, blood pressure was 136/75, temperature 97.8, respiratory rate was 20, and oxygen saturation was 93% on 3 L of oxygen by nasal cannula. HEAD, EYES, EARS, NOSE, AND THROAT: Showed normocephalic, atraumatic. NECK: Supple. HEART: Showed normal first and second heart sounds. No gallop or murmur. CHEST: Clear to auscultation. No crepitation or rhonchi. ABDOMEN: Distended, soft, nontender. NEUROLOGIC: She is demented without any obvious lateralizing sign. She ambulates with a walker. Her intake over the last 24 hours was 1200, output was 400. LABORATORY DATA: As of this morning, her white cell count is down to 8900, hemoglobin 12, hematocrit 37, MCV 89 and platelet count 336,000. Her chemistry showed a serum sodium 138, potassium 4.5, chloride 103, bicarbonate 32, anion gap of 3, BUN ____ 0.8, estimated GFR was 69 mL per minute. Her glucose 154, calcium was 8.5. Total bilirubin, AST, ALT, and alkaline phosphatase were normal. Total protein was 5.3 and albumin 2.3. DISCHARGE MEDICATIONS: The patient was discharged back to [facility] on Lantus insulin 10 units at bedtime; prednisone 40 mg once a day for 2 days, then 30 mg once a day for 2 days, then 20 mg once a day for 2 days and eventually 10 mg once a day for 2 days; Tylenol 650 mg every 4-6 hours as needed for fever; amlodipine besylate 5 mg once a day; aspirin 81 mg once a day; cyanocobalamin 1000 mcg tablet once a day; ergocalciferol vitamin D2 once a week; furosemide 40 mg once a day; gabapentin 300 mg 3 times a day; lisinopril 20 mg once a day; metformin 500 mg twice a day; oxycodone/APAP 5/325 one tablet every 6 hours as needed; potassium chloride 20 mEq once a day; and zinc sulfate 120 mg once a day. FINAL DISCHARGE DIAGNOSES: 1. COVID-19 pneumonia. 2. Acute hypoxic respiratory failure, improving. 3. Type 2 diabetes mellitus. 4. Hypertension. MARIELLE YOUSSEF MD DR: SEAMUS/fide JOB#: [id number] / [id number]
--- NOTE | 2020-04-23 15:10 | NUR ---
Discharge Note: JEANNE MON [address] [place] [address] Discharge instructions and discharge home medications reviewed with Other facility and a copy given. All questions have been answered and understanding verbalized. The following instructions and handouts were given: discharge instructions, COVID info, respiratory failure info, prescriptions. Discontinued lines and drains: Peripheral IV intact. [facility] via Wheel[facility] at 1510. Addendum: 04/23/20 at 1650 by FAWAD SÁNCHEZ RN Discharge wound picture of R buttocks taken & placed in chart.
[2020-04-24] MEDS ORDERED: methylPREDNISolone SOD SUCC PF 40 MG/ML VIAL. IV SCH (07:00)
== END 2020-04-23 15:10 | DRG 177 ==
LOC: ER 13:22 → 1 WEST ICU 14:18 → 6 SOUTH 04-21 11:45
PROVIDERS: ADMIT Internal Medicine; ATTEND Internal Medicine
DX: U07.1 COVID-19 (principal); J96.21 Acute and chronic respiratory failure with hypoxia; J12.89 Other viral pneumonia; E11.65 Type 2 diabetes mellitus with hyperglycemia; E66.01 Morbid (severe) obesity due to excess calories; I10 Essential (primary) hypertension; Z87.891 Personal history of nicotine dependence; Z88.0 Allergy status to penicillin; Z79.899 Other long term (current) drug therapy; Z68.34 Body mass index [BMI] 34.0-34.9, adult; Z87.81 Personal history of (healed) traumatic fracture; Z87.01 Personal history of pneumonia (recurrent)
CPT/HCPCS: 36415; 36600; 71045; 71275; 80048; 80053; 81001; 82550; 82728; 82805; 82962; 83605; 83615; 83690; 83735; 83880; 84100; 84145; 84484; 85007; 85025; 85027; 85379; 85384; 85610; 85730; 86140; 86850; 86900; 86901; 87040; 87086; 93005; 96361; 96372; 96374; 96375; 99291; J0456; J0692; J0696; J1100; J1650; J1815; J2020; J2920; J7050; Q9967; G0378; J7030; U0003-CS

== ENCOUNTER 2021-06-24 04:55 | Inpatient (IN) | payer OTHER ==
[~2021-06-24] VITALS: Ht 165.1 cm; Wt 109.5 kg
[~2021-06-24 04:55] MED LIST changes: +ACET325T21 PO; +AMLO-186 PO; +ASPI-630 PO; +CLIN-94 PO; -CLIN300C8 PO; +CYAN100031 PO; +ERGO500089 PO; +FURO-68 PO; +GABA300C18 PO; +INSU100V8 SQ; +LISI20TA18 PO; +METF500T16 PO; +POTA-112 PO; +PRED20TA PO; +ZINC220T3 PO
--- NOTE | 2021-06-24 05:06 | ED.ADGEN ---
Past Medical History Past Medical History: Anemia, Diabetes-Type II, Hypertension Additional Past Medical Histor: RIB FX, COVID, Past Surgical History: Hip Replacement Smoking Status: Former Smoker Alcohol Use: None Drug Use: None General Adult EDM: Chief Complaint: PAIN CONTROL HPI: HPI: Patient is a 81 year old female coming in from nursing facility for right-sided rib pain for 4 days. Patient states she feels like she has a "lump" under her breast and under her rib cage. Patient is a history of prior rib fractures approximately 2 years ago in a similar location but denies any recent falls, coughing, or straining. Patient that she was sitting reading when the pain started. Says it is sharp and intermittent. Is not worse with taking a deep breath. Says she has had some nausea but no vomiting. Denies any constipation or change in bowel movements. Denies any hematuria or dysuria. Took oxycodone and acetaminophen prior to arrival Review of Systems: Review of Systems: All other systems within normal limits except for as noted in the HPI Current Medications: Current Medications Medications (Trade) Dose Ordered Sig/Chris Start Time Stop Time Status Last Admin Dose Admin Cefoxitin Sodium (Mefoxin) 2 gm 1X ONCE 06/24/21 09:00 06/24/21 09:01 DC 06/24/21 09:04 2 GM Ceftriaxone Sodium (Rocephin) 1 gm 1X ONCE 06/24/21 09:00 06/24/21 09:01 Cancel Fentanyl Citrate (Fentanyl 2ml Vial) 50 mcg PRN Q2HRS PRN 06/24/21 09:00 06/24/21 09:16 50 MCG Metronidazole 100 ml @ 100 mls/hr 1X ONCE 06/24/21 09:00 06/24/21 09:59 UNV Ondansetron HCl (Zofran) 4 mg PRN Q8HRS PRN 06/24/21 09:00 06/25/21 08:59 Sodium Chloride 1,000 ml @ 75 mls/hr 1X ONCE 06/24/21 09:00 06/24/21 22:19 06/24/21 09:01 75 MLS/HR Allergies: Allergies: Allergies Coded Allergies Type Severity Reaction Last Updated Verified Penicillins Allergy Intermediate UNSURE, 50 Y AGO 04/21/20 Yes morphine Allergy Intermediate ITCHY 06/24/21 Yes Physical Exam: PE: Constitutional: Well developed, well nourished, no acute distress, non-toxic appearance. [] HENT: Normocephalic, atraumatic, bilateral external ears normal, nose normal. [] Eyes: PERRLA, conjunctiva normal, no discharge. [] Neck: No rigidity, supple, no stridor. [] Cardiovascular: Regular rate and rhythm, brisk cap refill [] Lungs & Thorax: Non labored symmetric respirations, no tachypnea or respiratory distress no point tenderness over right anterior ribs, no crepitus. No right upper quadrant tenderness. [] Abdomen: Soft, nondistended. Skin: Warm, dry, no erythema, no rash. [] Back: Unremarkable Extremities: No deformities, range of motion grossly intact, no lower extremity edema [] Neurologic: Alert and oriented X 3, no focal deficits noted. [] Psychologic: Affect normal, judgement normal, mood normal. [] Current Patient Data: Labs: Laboratory Tests Test 06/24/21 05:48 06/24/21 05:55 White Blood Count 5.7 x10^3/uL (4.0-11.0) Red Blood Count 3.93 x10^6/uL (3.50-5.40) Hemoglobin 12.3 g/dL (12.0-15.5) Hematocrit 36.6 % (36.0-47.0) Mean Corpuscular Volume 93 fL (79-100) Mean Corpuscular Hemoglobin 31 pg (25-35) Mean Corpuscular Hemoglobin Concent 34 g/dL (31-37) Red Cell Distribution Width 16.7 % (11.5-14.5) H Platelet Count 230 x10^3/uL (140-400) Neutrophils (%) (Auto) 56 % (31-73) Lymphocytes (%) (Auto) 29 % (24-48) Monocytes (%) (Auto) 11 % (0-9) H Eosinophils (%) (Auto) 3 % (0-3) Basophils (%) (Auto) 1 % (0-3) Neutrophils # (Auto) 3.2 x10^3/uL (1.8-7.7) Lymphocytes # (Auto) 1.7 x10^3/uL (1.0-4.8) Monocytes # (Auto) 0.6 x10^3/uL (0.0-1.1) Eosinophils # (Auto) 0.2 x10^3/uL (0.0-0.7) Basophils # (Auto) 0.0 x10^3/uL (0.0-0.2) Sodium Level 136 mmol/L (136-145) Potassium Level 4.5 mmol/L (3.5-5.1) Chloride Level 99 mmol/L (98-107) Carbon Dioxide Level 32 mmol/L (21-32) Anion Gap 5 (6-14) L Blood Urea Nitrogen 41 mg/dL (7-20) H Creatinine 1.3 mg/dL (0.6-1.0) H Estimated GFR (Cockcroft-Gault) 39.5 BUN/Creatinine Ratio 32 (6-20) H Glucose Level 131 mg/dL (70-99) H Calcium Level 9.1 mg/dL (8.5-10.1) Total Bilirubin 0.4 mg/dL (0.2-1.0) Aspartate Amino Transferase (AST) 19 U/L (15-37) Alanine Aminotransferase (ALT) 32 U/L (14-59) Alkaline Phosphatase 82 U/L (46-116) Total Protein 6.2 g/dL (6.4-8.2) L Albumin 3.4 g/dL (3.4-5.0) Albumin/Globulin Ratio 1.2 (1.0-1.7) Lipase 165 U/L (73-393) Urine Collection Type Unknown Urine Color Yellow Urine Clarity Clear Urine pH 5.0 (<5.0-8.0) Urine Specific [place] 1.015 (1.000-1.030) Urine Protein Negative mg/dL (NEG-TRACE) Urine Glucose (UA) Negative mg/dL (NEG) Urine Ketones (Stick) Negative mg/dL (NEG) Urine Blood Negative (NEG) Urine Nitrite Negative (NEG) Urine Bilirubin Negative (NEG) Urine Urobilinogen Dipstick 1.0 mg/dL (0.2 mg/dL) Urine Leukocyte Esterase Trace (NEG) Urine RBC 0 /HPF (0-2) Urine WBC 5-10 /HPF (0-4) Urine Squamous Epithelial Cells Occ /LPF Urine Bacteria Few /HPF (0-FEW) Laboratory Tests 06/24/21 05:48 Laboratory Tests 06/24/21 05:48 Vital Signs: Vital Signs Date Time Temp Pulse Resp B/P (MAP) Pulse Ox O2 Delivery O2 Flow Rate FiO2 06/24/21 09:16 18 94 Room Air 06/24/21 08:06 100/62 (75) 1.0 06/24/21 07:36 62 06/24/21 05:00 98.0 98.0 EKG: EKG: [] Heart Score: C/O Chest Pain: No Risk Factors: Risk Factors: DM, Current or recent (<one month) smoker, HTN, HLP, family history of CAD, obesity. Risk Scores: Score 0 - 3: 2.5% MACE over next 6 weeks - Discharge Home Score 4 - 6: 20.3% MACE over next 6 weeks - Admit for Clinical Observation Score 7 - 10: 72.7% MACE over next 6 weeks - Early Invasive Strategies Radiology/Procedures: Radiology/Procedures: IMAGING REPORT Signed PATIENT: JEANNE MON ACCOUNT: [id number] : 1940 LOCATION: ER AGE: 81 SEX: F EXAM STATUS: PRE ER ORD. PHYSICIAN: MARY BINGHAM MD REASON: righ rib pain PROCEDURE: CHEST AP ONLY XR CHEST 1V Clinical History: Reason: righ rib pain / Spl. Instructions: / History: Technique: AP view of the chest was obtained at 06/24/2021 5:12 AM. Comparison: April 18, 2020. Findings: The heart is mildly enlarged. The portal vessels appear normal. There is patchy opacity in the lung bases. Impression: 1. Cardiomegaly. 2. Mild basal infiltrates appears significant improved and could be resolving pneumonia or residual pneumonitis. Electronically signed by: Ney Watson III, MD (06/24/2021 6:29 AM) [facility] DICTATED and SIGNED BY: NEY WATSON III, MD DATE: 06/24/21 [id number] IMAGING REPORT Signed PATIENT: JEANNE MON E ACCOUNT: [id number] : 1940 LOCATION: ER AGE: 81 SEX: F EXAM STATUS: REG ER ORD. PHYSICIAN: DONATO REYNA DO REASON: RUQ pain PROCEDURE: ABDOMEN LTD Right upper quadrant abdominal ultrasound History: Reason: RUQ pain / Spl. Instructions: / History: Comparison: None. Technique: Transabdominal ultrasound images are obtained. Findings: Midline structures including the common bile duct, pancreas, and IVC are obscured due to overlying bowel gas. Portions of the liver are not well seen due to overlying bowel gas. The liver is increased in echotexture. There is decreased through-transmission. Liver may be enlarged, cannot be accurately measured. Ultrasound is not sensitive for detecting solid liver lesions. Gallbladder wall may be thickened measuring up to 7 mm. Evaluation is limited. Per report, sonographic Leary sign is negative. There are several echogenic gallstones. There is no obvious pericholecystic fluid. The right kidney is normal in echotexture and measures 12 cm. There is a 1.3 cm cyst in the upper pole of the right kidney that does not require follow-up. Corticomedullary differentiation is preserved. There is no hydronephrosis. IMPRESSION: 1. There is cholelithiasis. Gallbladder wall appears thickened. Cannot exclude cholecystitis. Consider hepatobiliary scan. 2. The liver is increased in echogenicity and there is decreased through- transmission suggesting fatty infiltration. 3. Midline structures are obscured due to overlying bowel gas. Electronically signed by: Irwin Roberts MD (06/24/2021 7:42 AM) [facility] DICTATED and SIGNED BY: IRWIN ROBERTS MD DATE: 06/24/21 [id number] 0 Course & Med Decision Making: Course & Med Decision Making Pertinent Labs and Imaging studies reviewed. (See chart for details) This patient was initially seen by Dr. Bingham. Please see her note for further details. I assumed care this morning at 06 100. The patient has right upper quadrant abdominal pain. On my exam, she is exquisitely tender in the right upper quadrant, positive Leary's on my exam. I ordered a abdominal ultrasound, which demonstrated cholelithiasis and thickened gallbladder wall concerning for possible early cholecystitis. I empirically ordered antibiotics, cefoxitin, for treatment of calculus cholecystitis. She has a penicillin allergy. I had initially ordered Rocephin and Flagyl, but the pharmacist informed that Flagyl is on national back order. Recommendation was made for cefoxitin, so the order was placed for this. The patient has thus far tolerated this medication well. I have explained my recommendation for admission to the hospital. She will require antibiotics, n.p.o. status, and surgery consultation. I spoke with Dr. Deluca, who accepts her for admission. Marques Disclaimer: Marques Disclaimer: This electronic medical record was generated, in whole or in part, using a voice recognition dictation system. Departure Departure Impression: Primary Impression: Acute calculous cholecystitis Disposition: ADMITTED INPATIENT Admitting Physician: Madi. Cat Condition: STABLE Referrals: UNKNOWN PCP NAME (PCP) MARY BINGHAM MD Jun 24, 2021 05:06 DONATO REYNA DO Jun 24, 2021 06:51
[2021-06-24] MEDS ORDERED: fentaNYL PF VIAL 100 MCG/2 ML VIAL IVP ONE (05:15)
[2021-06-24 06:08] LABS: CALCIUM 9.1 mg/dL (8.5-10.1); CREATININE 1.3 mg/dL (0.6-1.0); GFR 39.5; POTASSIUM 4.5 mmol/L (3.5-5.1)
[2021-06-24 06:09] LABS: BILIRUBIN,URINE NEGATIVE (NEG); CLARITY,URINE CLEAR; COLOR,URINE YELLOW; NITRITE,URINE NEGATIVE (NEG); PROTEIN,URINE NEGATIVE (NEG-TRACE)
[2021-06-24 06:09] LABS: BASO % 1 % (0-3); EOS # 0.2 x10^3/uL (0.0-0.7); EOS % 3 % (0-3); HEMATOCRIT 36.6 % (36.0-47.0); HEMOGLOBIN 12.3 g/dL (12.0-15.5); LYMPH # 1.7 x10^3/uL (1.0-4.8); LYMPH % 29 % (24-48); MEAN CORPUSCULAR HEMOGLOBIN 31 pg (25-35); MEAN CORPUSCULAR HGB CONC 34 g/dL (31-37); MEAN CORPUSCULAR VOLUME 93 fL (79-100); MONO # 0.6 x10^3/uL (0.0-1.1); MONO % 11 % (0-9); NEUT # 3.2 x10^3/uL (1.8-7.7); NEUT % 56 % (31-73); PLATELET COUNT 230 x10^3/uL (140-400); RED BLOOD COUNT 3.93 x10^6/uL (3.50-5.40); RED CELL DISTRIBUTION WIDTH 16.7 % (11.5-14.5); WHITE BLOOD COUNT 5.7 x10^3/uL (4.0-11.0)
[2021-06-24 06:14] LABS: ALBUMIN 3.4 g/dL (3.4-5.0); ALBUMIN/GLOBULIN RATIO 1.2 (1.0-1.7); TOTAL BILIRUBIN 0.4 mg/dL (0.2-1.0); TOTAL PROTEIN 6.2 g/dL (6.4-8.2)
[2021-06-24 06:21] LABS: BACTERIA,URINE FEW /HPF (0-FEW); RBC,URINE 0 /HPF (0-2)
--- NOTE | 2021-06-24 06:32 | RAD ---
XR CHEST 1V Clinical History: Reason: righ rib pain / Spl. Instructions: / History: Technique: AP view of the chest was obtained at 06/24/2021 5:12 AM. Comparison: April 18, 2020. Findings: The heart is mildly enlarged. The portal vessels appear normal. There is patchy opacity in the lung b ases. Impression: 1. Cardiomegaly. 2. Mild basal infiltrates appears significant improved and could be resolving pneumonia or residual p neumonitis. Electronically signed by: Laz Osorio III, MD (06/24/2021 6:29 AM) [facility]
--- NOTE | 2021-06-24 07:44 | RAD ---
Right upper quadrant abdominal ultrasound History: Reason: RUQ pain / Spl. Instructions: / History: Comparison: None. Technique: Transabdominal ultrasound images are obtained. Findings: Midline structures including the common bile duct, pancreas, and IVC are obscured due to overlying brian wel gas. Portions of the liver are not well seen due to overlying bowel gas. The liver is increased in echotexture. There is decreased through-transmission. Liver may be enlarged , cannot be accurately measured. Ultrasound is not sensitive for detecting solid liver lesions. Gallbladder wall may be thickened measuring up to 7 mm. Evaluation is limited. Per report, sonographi c Leary sign is negative. There are several echogenic gallstones. There is no obvious pericholecysti c fluid. The right kidney is normal in echotexture and measures 12 cm. There is a 1.3 cm cyst in the upper yolande e of the right kidney that does not require follow-up. Corticomedullary differentiation is preserved. There is no hydronephrosis. IMPRESSION: 1. There is cholelithiasis. Gallbladder wall appears thickened. Cannot exclude cholecystitis. Consid er hepatobiliary scan. 2. The liver is increased in echogenicity and there is decreased through-transmission suggesting fat ty infiltration. 3. Midline structures are obscured due to overlying bowel gas. Electronically signed by: Irwin Roberts MD (06/24/2021 7:42 AM) [facility]
[2021-06-24] MEDS ORDERED: IV NORMAL SALINE 1000ML BAG 1,000 ML IV ONE (09:00)
[2021-06-24] MEDS ORDERED: cefTRIAXone IV Push 1 GM VIAL. IVP ONE (09:00)
[2021-06-24] MEDS ORDERED: cefOXitin SODIUM IV Push 2 GM VIAL. IVP ONE (09:00)
[2021-06-24] MEDS: fentaNYL PF VIAL 100 MCG/2 ML VIAL IVP PRN ×4 (09:16→20:24)
--- NOTE | 2021-06-24 12:36 | PDOC2 ---
RAFY HERNANDEZ [employer] 06/24/21 1236: CONSULT Date of Consult Date of Consult DATE: 06/24/21 TIME: 12:33 Reason for Consult Reason for Consult: cholecystitis Referring Physician Referring Physician: er Identification/Chief Complaint Chief Complaint abdominal pain Source Source: Chart review, Patient History of Present Illness Reason for Visit: Admitted with RUQ pain and nausea since Wednesday. No similar pain in past. No constipation or diarrhea Past Medical History Cardiovascular: HTN Endocrine: Diabetes Past Surgical History Past Surgical History: Appendectomy, Other (adrenal mass ) Family History Family History: Other (noncontributory to current illness ) Social History Quit ALCOHOL: none Drugs: None Lives: Alone Current Problem List Problem List Problems Medical Problems: (1) Acute calculous cholecystitis Status: Acute Current Medications Current Medications Current Medications Fentanyl Citrate (Fentanyl 2ml Vial) 75 mcg 1X ONCE IVP Last administered on 06/24/21at 06:01; Start 06/24/21 at 05:15; Stop 06/24/21 at 05:16; Status DC Ceftriaxone Sodium (Rocephin) 1 gm 1X ONCE IVP ; Start 06/24/21 at 09:00; Stop 06/24/21 at 09:01; Status Cancel Metronidazole 100 ml @ 100 mls/hr 1X ONCE IV ; Start 06/24/21 at 09:00; Stop 06/24/21 at 09:59; Status UNV Cefoxitin Sodium (Mefoxin) 2 gm 1X ONCE IVP Last administered on 06/24/21at 09:04; Start 06/24/21 at 09:00; Stop 06/24/21 at 09:01; Status DC Ondansetron HCl (Zofran) 4 mg PRN Q8HRS PRN IVP NAUSEA/VOMITING; Start 06/24/21 at 09:00; Stop 06/25/21 at 08:59 Sodium Chloride 1,000 ml @ 75 mls/hr 1X ONCE IV Last administered on 06/24/21at 09:01; Start 06/24/21 at 09:00; Stop 06/24/21 at 22:19 Fentanyl Citrate (Fentanyl 2ml Vial) 50 mcg PRN Q2HRS PRN IVP pain Last administered on 06/24/21at 09:16; Start 06/24/21 at 09:00 Active Scripts Active Lantus (Insulin Glargine,Hum.rec.anlog) 100 Unit/1 Ml Vial 10 Unit SQ QHS 30 Days Prednisone 20 Mg Tablet 1 Tab PO DAILY Percocet 5-325 Mg Tablet (Oxycodone/Acetaminophen) 1 Each Tablet 1 Tab PO PRN Q6HRS PRN Reported Zinc Sulfate 220 Mg Tablet 1 Tab PO DAILY 30 Days Klor-Con 10 (Potassium Chloride) 10 Meq Tablet.er 1 Tab PO DAILY 30 Days Metformin Hcl 500 Mg Tablet 500 Mg PO BIDWMEALS Lisinopril 20 Mg Tablet 1 Tab PO DAILY Lasix (Furosemide) 40 Mg Tablet 1 Tab PO DAILY 30 Days Gabapentin (Gabapentin) 300 Mg Capsule 300 Mg PO TID Vitamin D2 (Ergocalciferol (Vitamin D2)) Unknown Strength Capsule Unknown Dose PO WEEKLY 50,000 units weekly on tuesdays B-12 (Cyanocobalamin (Vitamin B-12)) 1,000 Mcg Tablet.er 1 Tab PO DAILY 30 Days Aspirin 81 Mg Tab.chew 1 Tab PO DAILY Acetaminophen 325 Mg Tablet 2 Tab PO PRN Q4-6HRS PRN 24 Days Amlodipine Besylate 5 Mg Tablet 5 Mg PO DAILY Allergies Allergies: Coded Allergies: Penicillins (Verified Allergy, Intermediate, UNSURE, 50 Y AGO, 04/21/20) TOLERATES CEFTRIAXONE morphine (Verified Allergy, Intermediate, ITCHY, 06/24/21) ROS General: YES: Fatigue; No: Chills PSYCHOLOGICAL ROS: No: Anxiety, Depression Eyes: No Blurry vision, No Double vision HEENT: No: Heacaches, Sore Throat Hematological and Lymphatic: No: Bleeding Problems, Blood Clots Respiratory: No: Cough, Shortness of breath Cardiovascular: No Chest Pain, No Palpitations Gastrointestinal: Yes Other (see hpi) Genitourinary: No Dysuria, No Hematuria Musculoskeletal: No Joint Pain, No Muscle Pain Neurological: No Impaired Coord/balance, No Numbness/Tingling Skin: No Pruritus, No Rash Physical Exam General: Alert, Oriented X3, Cooperative HEENT: Atraumatic, PERRLA Lungs: Clear to auscultation, Normal air movement Heart: Regular rate, Normal S1, Normal S2 Abdomen: Soft, Other (TTP RUQ) Extremities: No clubbing, No cyanosis Skin: No rashes, No breakdown Neuro: Normal gait, Normal speech Psych/Mental Status: Mental status NL, Mood NL MUSCULOSKELETAL: No deformity, No swelling Vitals VITALS Vital Signs Date Time Temp Pulse Resp B/P (MAP) Pulse Ox O2 Delivery O2 Flow Rate FiO2 06/24/21 09:16 18 94 Room Air 06/24/21 08:06 100/62 (75) 1.0 06/24/21 07:36 62 06/24/21 05:00 98.0 98.0 Labs Labs Laboratory Tests Test 06/24/21 05:48 06/24/21 05:55 White Blood Count 5.7 x10^3/uL (4.0-11.0) Red Blood Count 3.93 x10^6/uL (3.50-5.40) Hemoglobin 12.3 g/dL (12.0-15.5) Hematocrit 36.6 % (36.0-47.0) Mean Corpuscular Volume 93 fL (79-100) Mean Corpuscular Hemoglobin 31 pg (25-35) Mean Corpuscular Hemoglobin Concent 34 g/dL (31-37) Red Cell Distribution Width 16.7 % (11.5-14.5) Platelet Count 230 x10^3/uL (140-400) Neutrophils (%) (Auto) 56 % (31-73) Lymphocytes (%) (Auto) 29 % (24-48) Monocytes (%) (Auto) 11 % (0-9) Eosinophils (%) (Auto) 3 % (0-3) Basophils (%) (Auto) 1 % (0-3) Neutrophils # (Auto) 3.2 x10^3/uL (1.8-7.7) Lymphocytes # (Auto) 1.7 x10^3/uL (1.0-4.8) Monocytes # (Auto) 0.6 x10^3/uL (0.0-1.1) Eosinophils # (Auto) 0.2 x10^3/uL (0.0-0.7) Basophils # (Auto) 0.0 x10^3/uL (0.0-0.2) Sodium Level 136 mmol/L (136-145) Potassium Level 4.5 mmol/L (3.5-5.1) Chloride Level 99 mmol/L (98-107) Carbon Dioxide Level 32 mmol/L (21-32) Anion Gap 5 (6-14) Blood Urea Nitrogen 41 mg/dL (7-20) Creatinine 1.3 mg/dL (0.6-1.0) Estimated GFR (Cockcroft-Gault) 39.5 BUN/Creatinine Ratio 32 (6-20) Glucose Level 131 mg/dL (70-99) Calcium Level 9.1 mg/dL (8.5-10.1) Total Bilirubin 0.4 mg/dL (0.2-1.0) Aspartate Amino Transf (AST/SGOT) 19 U/L (15-37) Alanine Aminotransferase (ALT/SGPT) 32 U/L (14-59) Alkaline Phosphatase 82 U/L (46-116) Total Protein 6.2 g/dL (6.4-8.2) Albumin 3.4 g/dL (3.4-5.0) Albumin/Globulin Ratio 1.2 (1.0-1.7) Lipase 165 U/L (73-393) Urine Collection Type Unknown Urine Color Yellow Urine Clarity Clear Urine pH 5.0 (<5.0-8.0) Urine Specific [place] 1.015 (1.000-1.030) Urine Protein Negative mg/dL (NEG-TRACE) Urine Glucose (UA) Negative mg/dL (NEG) Urine Ketones (Stick) Negative mg/dL (NEG) Urine Blood Negative (NEG) Urine Nitrite Negative (NEG) Urine Bilirubin Negative (NEG) Urine Urobilinogen Dipstick 1.0 mg/dL (0.2 mg/dL) Urine Leukocyte Esterase Trace (NEG) Urine RBC 0 /HPF (0-2) Urine WBC 5-10 /HPF (0-4) Urine Squamous Epithelial Cells Occ /LPF Urine Bacteria Few /HPF (0-FEW) Laboratory Tests Test 06/24/21 05:48 06/24/21 05:55 White Blood Count 5.7 x10^3/uL (4.0-11.0) Red Blood Count 3.93 x10^6/uL (3.50-5.40) Hemoglobin 12.3 g/dL (12.0-15.5) Hematocrit 36.6 % (36.0-47.0) Mean Corpuscular Volume 93 fL (79-100) Mean Corpuscular Hemoglobin 31 pg (25-35) Mean Corpuscular Hemoglobin Concent 34 g/dL (31-37) Red Cell Distribution Width 16.7 % (11.5-14.5) Platelet Count 230 x10^3/uL (140-400) Neutrophils (%) (Auto) 56 % (31-73) Lymphocytes (%) (Auto) 29 % (24-48) Monocytes (%) (Auto) 11 % (0-9) Eosinophils (%) (Auto) 3 % (0-3) Basophils (%) (Auto) 1 % (0-3) Neutrophils # (Auto) 3.2 x10^3/uL (1.8-7.7) Lymphocytes # (Auto) 1.7 x10^3/uL (1.0-4.8) Monocytes # (Auto) 0.6 x10^3/uL (0.0-1.1) Eosinophils # (Auto) 0.2 x10^3/uL (0.0-0.7) Basophils # (Auto) 0.0 x10^3/uL (0.0-0.2) Sodium Level 136 mmol/L (136-145) Potassium Level 4.5 mmol/L (3.5-5.1) Chloride Level 99 mmol/L (98-107) Carbon Dioxide Level 32 mmol/L (21-32) Anion Gap 5 (6-14) Blood Urea Nitrogen 41 mg/dL (7-20) Creatinine 1.3 mg/dL (0.6-1.0) Estimated GFR (Cockcroft-Gault) 39.5 BUN/Creatinine Ratio 32 (6-20) Glucose Level 131 mg/dL (70-99) Calcium Level 9.1 mg/dL (8.5-10.1) Total Bilirubin 0.4 mg/dL (0.2-1.0) Aspartate Amino Transf (AST/SGOT) 19 U/L (15-37) Alanine Aminotransferase (ALT/SGPT) 32 U/L (14-59) Alkaline Phosphatase 82 U/L (46-116) Total Protein 6.2 g/dL (6.4-8.2) Albumin 3.4 g/dL (3.4-5.0) Albumin/Globulin Ratio 1.2 (1.0-1.7) Lipase 165 U/L (73-393) Urine Collection Type Unknown Urine Color Yellow Urine Clarity Clear Urine pH 5.0 (<5.0-8.0) Urine Specific [place] 1.015 (1.000-1.030) Urine Protein Negative mg/dL (NEG-TRACE) Urine Glucose (UA) Negative mg/dL (NEG) Urine Ketones (Stick) Negative mg/dL (NEG) Urine Blood Negative (NEG) Urine Nitrite Negative (NEG) Urine Bilirubin Negative (NEG) Urine Urobilinogen Dipstick 1.0 mg/dL (0.2 mg/dL) Urine Leukocyte Esterase Trace (NEG) Urine RBC 0 /HPF (0-2) Urine WBC 5-10 /HPF (0-4) Urine Squamous Epithelial Cells Occ /LPF Urine Bacteria Few /HPF (0-FEW) Assessment/Plan Assessment/Plan cholecystitis obesity-bmi 42 will review with SYLVESTER Iyer MD 06/24/21 1831: CONSULT Assessment/Plan Assessment/Plan Pt seen and examined. Agree with Ms. Hernandez's note Pt with c/o RUQ pain TTP RUQ will ask pulm to evaluate as well as cardiology in anticipation of surgery. Pt at increased risk given obesity, pulm status, cardiomegaly. Thanks for consult! RAFY HERNANDEZ APRN Jun 24, 2021 12:36 SYLVESTER MICHELLE MD Jun 24, 2021 18:31
[2021-06-24] MEDS: ONDANSETRON PF 4 MG/2 ML VIAL. IVP PRN ×2 (13:20→20:24)
[2021-06-24 15:53] VITALS: BP 105/61
[2021-06-24 19:00] VITALS: BP 90/51
[2021-06-24 23:00] VITALS: BP 105/57
[2021-06-25 03:00] VITALS: BP 103/59
[2021-06-25] MEDS: fentaNYL PF VIAL 100 MCG/2 ML VIAL IVP PRN ×4 (03:22→19:39)
[2021-06-25 07:00] VITALS: BP 110/61
--- NOTE | 2021-06-25 09:22 | PDOC ---
PULMONARY PROGRESS NOTES DATE: 06/25/21 TIME: 09:19 Vitals Vital Signs Date Time Temp Pulse Resp B/P (MAP) Pulse Ox O2 Delivery O2 Flow Rate FiO2 06/25/21 08:09 Nasal Cannula 06/25/21 07:00 97.8 95 20 110/61 (77) 92 1.0 97.8 General: Alert, No acute distress Labs Laboratory Tests Test 06/24/21 05:48 06/24/21 05:55 06/24/21 17:11 06/24/21 20:03 White Blood Count 5.7 x10^3/uL (4.0-11.0) Red Blood Count 3.93 x10^6/uL (3.50-5.40) Hemoglobin 12.3 g/dL (12.0-15.5) Hematocrit 36.6 % (36.0-47.0) Mean Corpuscular Volume 93 fL (79-100) Mean Corpuscular Hemoglobin 31 pg (25-35) Mean Corpuscular Hemoglobin Concent 34 g/dL (31-37) Red Cell Distribution Width 16.7 % (11.5-14.5) Platelet Count 230 x10^3/uL (140-400) Neutrophils (%) (Auto) 56 % (31-73) Lymphocytes (%) (Auto) 29 % (24-48) Monocytes (%) (Auto) 11 % (0-9) Eosinophils (%) (Auto) 3 % (0-3) Basophils (%) (Auto) 1 % (0-3) Neutrophils # (Auto) 3.2 x10^3/uL (1.8-7.7) Lymphocytes # (Auto) 1.7 x10^3/uL (1.0-4.8) Monocytes # (Auto) 0.6 x10^3/uL (0.0-1.1) Eosinophils # (Auto) 0.2 x10^3/uL (0.0-0.7) Basophils # (Auto) 0.0 x10^3/uL (0.0-0.2) Sodium Level 136 mmol/L (136-145) Potassium Level 4.5 mmol/L (3.5-5.1) Chloride Level 99 mmol/L (98-107) Carbon Dioxide Level 32 mmol/L (21-32) Anion Gap 5 (6-14) Blood Urea Nitrogen 41 mg/dL (7-20) Creatinine 1.3 mg/dL (0.6-1.0) Estimated GFR (Cockcroft-Gault) 39.5 BUN/Creatinine Ratio 32 (6-20) Glucose Level 131 mg/dL (70-99) Calcium Level 9.1 mg/dL (8.5-10.1) Total Bilirubin 0.4 mg/dL (0.2-1.0) Aspartate Amino Transf (AST/SGOT) 19 U/L (15-37) Alanine Aminotransferase (ALT/SGPT) 32 U/L (14-59) Alkaline Phosphatase 82 U/L (46-116) Total Protein 6.2 g/dL (6.4-8.2) Albumin 3.4 g/dL (3.4-5.0) Albumin/Globulin Ratio 1.2 (1.0-1.7) Lipase 165 U/L (73-393) Urine Collection Type Unknown Urine Color Yellow Urine Clarity Clear Urine pH 5.0 (<5.0-8.0) Urine Specific [place] 1.015 (1.000-1.030) Urine Protein Negative mg/dL (NEG-TRACE) Urine Glucose (UA) Negative mg/dL (NEG) Urine Ketones (Stick) Negative mg/dL (NEG) Urine Blood Negative (NEG) Urine Nitrite Negative (NEG) Urine Bilirubin Negative (NEG) Urine Urobilinogen Dipstick 1.0 mg/dL (0.2 mg/dL) Urine Leukocyte Esterase Trace (NEG) Urine RBC 0 /HPF (0-2) Urine WBC 5-10 /HPF (0-4) Urine Squamous Epithelial Cells Occ /LPF Urine Bacteria Few /HPF (0-FEW) Glucose (Fingerstick) 113 mg/dL (70-99) 135 mg/dL (70-99) Test 06/25/21 07:03 Glucose (Fingerstick) 119 mg/dL (70-99) Laboratory Tests Test 06/24/21 17:11 06/24/21 20:03 06/25/21 07:03 Glucose (Fingerstick) 113 mg/dL (70-99) 135 mg/dL (70-99) 119 mg/dL (70-99) Medications Active Scripts Medications Dose Route/Sig Max Daily Dose Days Date Category Dose Instructions Lantus (Insulin Glargine,Hum.rec.anlog) 100 Unit/1 Ml Vial 10 Unit SQ QHS 30 04/23/20 Rx Prednisone 20 Mg Tablet 1 Tab PO DAILY 04/23/20 Rx Zinc Sulfate 220 Mg Tablet 1 Tab PO DAILY 04/18/20 Reported Klor-Con 10 (Potassium Chloride) 10 Meq Tablet.er 1 Tab PO DAILY 30 04/18/20 Reported Metformin Hcl 500 Mg Tablet 500 Mg PO BIDWMEALS 04/18/20 Reported Lisinopril 20 Mg Tablet 1 Tab PO DAILY 04/18/20 Reported Lasix (Furosemide) 40 Mg Tablet 1 Tab PO DAILY 30 04/18/20 Reported Gabapentin (Gabapentin) 300 Mg Capsule 300 Mg PO TID 04/18/20 Reported Vitamin D2 (Ergocalciferol (Vitamin D2)) Unknown Strength Capsule Unknown Dose PO WEEKLY 04/18/20 Reported 50,000 units weekly on tuesdays B-12 (Cyanocobalamin (Vitamin B-12)) 1,000 Mcg Tablet.er 1 Tab PO DAILY 04/18/20 Reported Aspirin 81 Mg Tab.chew 1 Tab PO DAILY 04/18/20 Reported Acetaminophen 325 Mg Tablet 2 Tab PO PRN Q4-6HRS PRN 24 04/18/20 Reported Amlodipine Besylate 5 Mg Tablet 5 Mg PO DAILY 04/18/20 Reported Percocet 5-325 Mg Tablet (Oxycodone/Acetaminophen) 1 Each Tablet 1 Tab PO PRN Q6HRS PRN 05/22/19 Rx Impression . Full consult dictated See consult We will discuss with surgery BRENDA JAMES MD Jun 25, 2021 09:22
--- NOTE | 2021-06-25 10:58 | PDOC2 ---
CARDIAC CONSULT DATE OF CONSULT Date of Consult DATE: 06/25/21 TIME: 10:48 REASON FOR CONSULT Reason for Consult: Pre-op eval REFERRING PHYSICIAN Referring Physician: Dr. Barillas SOURCE Source: Chart review, Patient HISTORY OF PRESENT ILLNESS HISTORY OF PRESENT ILLNESS This is a 81 yo who presented from nursing facility secondary to pain under her right ribs for the last several days. Abdominal US notable for cholelithiasis with possible cholecystitis. Cardiology asked to see in anticipation of surgery. No prior h/o CAD or CHF. No prior cardiac workup. Denies any dizziness, diaphoresis, chest pain, or shortness of breath. Does reports some mild LE edema recently. No LE wound. PAST MEDICAL HISTORY Cardiovascular: HTN, Hyperlipidemia GI: GERD Heme/Onc: Anemia NOS Musculoskeletal: Osteoarthritis Endocrine: Diabetes PAST SURGICAL HISTORY Past Surgical History: Appendectomy, Total hip replacement (right ) FAMILY HISTORY Family History: Diabetes SOCIAL HISTORY Smoke: Quit ALCOHOL: none Drugs: None Lives: Care Home ALLERGIES ALLERGIES: Coded Allergies: Penicillins (Verified Allergy, Intermediate, UNSURE, 50 Y AGO, 04/21/20) TOLERATES CEFTRIAXONE morphine (Verified Allergy, Intermediate, ITCHY, 06/24/21) ROS Review of System 14 point ROS conducted with pertinent positives noted above in hPI PHYSICAL EXAM General: Alert, Oriented X3, Cooperative, No acute distress HEENT: Atraumatic Lungs: Clear to auscultation Heart: Regular rate Abdomen: Soft, Other (RUQ tenderness) Extremities: Normal pulses, Other (1+ bilateral LE edema ) Skin: No significant lesion Neuro: Normal speech, Sensation intact Psych/Mental Status: Mental status NL, Mood NL MUSCULOSKELETAL: Osteoarthritic changes both hands VITALS/I&O VITALS/I&O: Vital Signs Date Time Temp Pulse Resp B/P (MAP) Pulse Ox O2 Delivery O2 Flow Rate FiO2 06/25/21 09:24 Nasal Cannula 06/25/21 07:00 97.8 95 20 110/61 (77) 92 1.0 97.8 I & O 06/24/21 06/24/21 06/25/21 15:00 23:00 07:00 Intake Total 0 ml Output Total 0 ml Balance 0 ml 0 ml LABS Lab: Laboratory Tests Test 06/24/21 17:11 06/24/21 20:03 06/25/21 07:03 Glucose (Fingerstick) 113 mg/dL (70-99) H 135 mg/dL (70-99) H 119 mg/dL (70-99) H ASSESSMENT/PLAN ASSESSMENT/PLAN 1. RUQ pain; US notable for cholelithiasis with possible cholecystitis 2. Hypertension; controlled 3. Hyperlipidemia 4. Diabetes, II 5. DEEP 6. Obesity Recommendations Lipids Echo to assess LV systolic function Overall, mild to moderate risk for noncardiac surgery unless significant LV dysfunction is noted. Supportive care Follow GS recs Further pending above SHI SMART STERILE PREPARATION TECHNICIAN Jun 25, 2021 10:58
[2021-06-25] MEDS ORDERED: ACETAMINOPHEN 325 MG TABLET. PO PRN (11:00)
--- NOTE | 2021-06-25 11:42 | HP ---
DATE OF SERVICE: 06/25/2021 ADMIT DATE: 06/24/2021 HISTORY OF PRESENT ILLNESS: The patient is a 81-year-old female patient, a resident at [facility], who was brought from the nursing facility with a complaint of right-sided rib pain for the last 4 days. She stated that she feels that she has a lump under her breast and under her ribcage. The patient has a history of prior rib fractures approximately 2 years ago in a similar location, but denied any recent falls, coughing or straining. She was sitting reading when the pain started, says it is sharp and intermittent, is not worse with taking a deep breath. Did have some nausea, but no vomiting. Denies any constipation or change in bowel habit. She was extensively investigated in the Emergency Room and has had lab work and imaging studies. Her CBC was unremarkable. Her chemistry showed that she has some impaired kidney function and mild hyperglycemia. Serum lipase is only 165. Urinalysis is essentially unremarkable. She had had a chest x-ray, which showed the heart is mildly enlarged, the portal vessels appear normal. There is a patchy opacity in the lung bases. Impression: Cardiomegaly and mild basal infiltrate appears significantly improved and could be resolving pneumonia or residual pneumonia. Did have abdominal ultrasound, which showed that there is cholelithiasis, gallbladder wall appears to be thickened, cannot exclude cholecystitis, consider hepatobiliary scan. The liver is increased in echogenicity and that is decreased through transmission, suggesting fatty infiltration. She has a midline structure that is obscured due to overlying bowel gas. The patient was admitted for possible acute cholecystitis and cholelithiasis. We did consult the surgical team as well as the commercial analyst. PAST MEDICAL HISTORY: Significant for hypertension, type 2 diabetes mellitus, morbid obesity, history of multiple fractures of the ribs, iron-deficiency anemia, chronic respiratory failure with hypoxia, history of pseudomonas infection, carpal tunnel syndrome. She had an abscess in the vulva and has a history of anemia as well as previous hip replacement. ALLERGIES: SHE IS ALLERGIC TO PENICILLIN. FAMILY HISTORY: Probably noncontributory. SOCIAL HISTORY: She has been a resident at [facility]. She is a former smoker. She does not drink alcohol or use any recreational drugs. REVIEW OF SYSTEMS: As per history of present illness. MEDICATIONS: She is currently on the following medications: She is on amlodipine besylate 5 mg once a day, lisinopril 20 mg once a day, aspirin 81 mg once a day, hydrocodone/APAP 5/325 one tablet every 6 hours, acetaminophen 650 mg every 4-6 hours, gabapentin 300 mg 3 times a day, potassium chloride 10 mEq once a day, furosemide 40 mg daily, prednisone 20 mg daily, metformin 500 mg twice a day. She is on Lantus insulin 10 units at bedtime, cyanocobalamin 1000 mcg tablet daily and ergocalciferol for vitamin D2 of 50,000 units once a week, on Tuesdays. PHYSICAL EXAMINATION: GENERAL: On arrival to the Emergency Room, the patient looked well and was clearly in no apparent respiratory distress. There is no pallor, jaundice, cyanosis or thyromegaly. No jugular venous distention. No lower limb edema. VITAL SIGNS: Her heart rate was 74, blood pressure was 123/80, temperature was 98, respiratory rate was 24 and oxygen saturation was 98% on 1 liter of oxygen. HEAD, EYES, EARS, NOSE, AND THROAT: Normocephalic, atraumatic. NECK: Supple. HEART: Normal first and second heart sounds, no gallop or murmur. CHEST: Clear to auscultation, no crepitation or rhonchi. ABDOMEN: Distended, soft, nontender. NEUROLOGIC: She was awake, alert, oriented x 3 with no obvious motor or sensory deficit. PSYCHIATRIC: The affect, judgment and mood were normal. LABORATORY DATA: Her lab work on arrival to the Emergency Room showed a white cell count 5700, hemoglobin 12, hematocrit 36, MCV 93 and platelet count 230,000, with normal manual differential. Her chemistry showed a serum sodium 136, potassium 4.5, chloride 99, bicarbonate 32, anion gap of 5, BUN 41, creatinine 1.3. Estimated GFR was 39 mL per minute. Her glucose 131, calcium was 9.1. Total bilirubin, AST, ALT, alkaline phosphatase were normal. Total protein was 6.2, albumin 3.4. Serum lipase was 165. ASSESSMENT AND PLAN: In summary, this is a 81-year-old female patient who was admitted with a complaint of right-sided rib pain; however, chest x-ray was unremarkable. Abdominal ultrasound showed that she has acute calculous cholecystitis. Plan is to reconcile all her medications and consult surgical team as well as the commercial analyst as well as field nurse case manager for preoperative evaluation given her history of chronic hypoxic respiratory failure, cardiomegaly and morbid obesity. ZAYRA DR: Ary TID: [id number]
[2021-06-25 11:45] LABS: CHOLESTEROL/HDL RATIO 3.8
--- NOTE | 2021-06-25 11:55 | CARD ---
MR#: [id number] Date of Study: 06/25/2021 Ordering Physician: SHI SMART, Referring Physician: SHI SMART, Tech: Marlen Cheung [facility] APPROVED REPORT EXAM: Two-dimensional and M-mode echocardiogram with Doppler and color Doppler. Other Information Quality : Technically LimitedHR: 80bpm Rhythm : NSR INDICATION COPD RISK FACTORS Hypertension Obesity Hyperlipidemia 2D DIMENSIONS RVDd3.0 (2.9-3.5cm)Left Atrium(2D)2.7 (1.6-4.0cm) IVSd1.1 (0.7-1.1cm)Aortic Root(2D)2.9 (2.0-3.7cm) LVDd3.9 (3.9-5.9cm)LVOT Diameter2.4 (1.8-2.4cm) PWd1.5 (0.7-1.1cm)LVDs2.7 (2.5-4.0cm) FS (%) 31.1 %SV38.3 ml LVEF(%)59.5 (>50%) Aortic Valve AoV Peak Gustavo.165.9cm/sAoV VTI37.0cm AO Peak GR.11.0mmHgLVOT Peak Gustavo.111.1cm/s AO Mean GR.6mmHgAVA (VMAX)2.95cm2 Mitral Valve MV E Qpqhuhza011.0cm/sMV DECEL [id number] MV A Bnhjniwb228.9cm/sE/A Ratio1.1 Tricuspid Valve TR P. Fgmaegkv637sn/sTR Peak Gr.18mmHg LEFT VENTRICLE The left ventricle is normal size. There is mild concentric left ventricular hypertrophy. The left ve ntricular systolic function is normal and the ejection fraction is within normal range. Estimated eje ction fraction 60-65%. There is normal LV segmental wall motion. Transmitral Doppler flow pattern is Grade I-abnormal relaxation pattern. RIGHT VENTRICLE The right ventricle is borderline dilated. There is normal right ventricular wall thickness. The righ t ventricular systolic function is normal. ATRIA The left atrium size is normal. The right atrium size is normal. The interatrial septum is intact wit h no evidence for an atrial septal defect or patent foramen ovale as noted on 2-D or Doppler imaging. AORTIC VALVE The aortic valve is normal in structure and function. Doppler and Color Flow revealed trace aortic re gurgitation. There is no significant aortic valvular stenosis. MITRAL VALVE The mitral valve is normal in structure and function. There is no evidence of mitral valve prolapse. There is no mitral valve stenosis. Doppler and Color Flow revealed no mitral valve regurgitation note d. TRICUSPID VALVE The tricuspid valve is normal in structure and function. Doppler and Color Flow revealed trace tricus pid regurgitation. Estimated PAP 25-30 mmHg. There is no tricuspid valve stenosis. PULMONIC VALVE Doppler and Color Flow revealed no pulmonic valvular regurgitation. There is no pulmonic valvular rina nosis. GREAT VESSELS The aortic root is normal in size. The ascending aorta is normal in size. The IVC was not visualized. PERICARDIAL EFFUSION There is no evidence of significant pericardial effusion. Critical Notification Critical Value: No <Conclusion> The left ventricular systolic function is normal and the ejection fraction is within normal range. E stimated ejection fraction 60-65%. There is normal LV segmental wall motion. Signed by : Zeyad Pascal, Electronically Approved : 06/25/2021 11:55:20
[2021-06-25] MEDS: FUROSEMIDE 40 MG TABLET. PO SCH ×2 (12:00→15:24)
--- NOTE | 2021-06-25 13:47 | NUR ---
SW following. Discussed with RN. 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 Pt having a ian possibly tomorrow. Pt will need a PCR COVID test to return to facility. RN notified. LANI will continue to follow.
[2021-06-25 15:00] VITALS: BP 107/62
[2021-06-25] MEDS: oxyCODONE/APAP 5/325 1 TAB TABLET PO PRN (15:23)
[2021-06-25] MEDS: ASPIRIN CHEWABLE 81 MG TABLET. PO SCH (15:23)
[2021-06-25] MEDS: ZINC SULFATE 220 MG CAPSULE. PO SCH (15:23)
[2021-06-25] MEDS: CYANOCOBALAMIN (VITAMIN B-12) 1,000 MCG TABLET. PO SCH (15:24)
[2021-06-25] MEDS: GABAPENTIN 300 MG CAPSULE. PO SCH ×2 (15:24→21:04)
[2021-06-25] MEDS: POTASSIUM CHLORIDE 10 MEQ TABLET.ER. PO SCH (15:24)
[2021-06-25] MEDS: predniSONE 20 MG TABLET PO SCH (15:24)
[2021-06-25] MEDS: LISINOPRIL 20 MG TABLET PO SCH (15:26)
[2021-06-25] MEDS: metFORMIN 500 MG TABLET PO SCH (16:14)
[2021-06-25 19:00] VITALS: BP 98/62
--- NOTE | 2021-06-25 19:52 | CONS ---
DATE OF CONSULTATION: 06/25/2021 ATTENDING PHYSICIAN: Emory Deluca MD. CONSULTING PHYSICIAN: Brock Santos MD REASON FOR CONSULTATION: The patient is seen in pulmonary consultation at the request of Dr. Popeye Barillas for abnormal x-ray revealing cardiomegaly, bilateral infiltrates. The patient is possibly needing a cholecystectomy. HISTORY OF PRESENT ILLNESS: The patient is a 81-year-old that presented with elevated white count, abdominal pain. She has been thinking that she has cholecystitis. Surgery is contemplating possible surgery. The patient has likewise been seen by Cardiology. They basically recommended controlling hypertension and obtain an echocardiogram. The patient normally does not wear oxygen at home. She had COVID-19 sometime back. She is now vaccinated. She quit tobacco 3 years ago, wears no oxygen. She has no diagnosis of COPD. Denies productive cough, no chest pain or pressure. PAST MEDICAL HISTORY: Remarkable for type 2 diabetes, previous iron deficiency anemia, chronic respiratory failure with hypoxemia. history of pseudomonas infection, carpal tunnel. She has had previous hip replacement. PAST SURGICAL HISTORY: As above. ALLERGIES: PENICILLIN. FAMILY HISTORY: Noncontributory. SOCIAL HISTORY: She resides at a [facility]. She is a former smoker. REVIEW OF SYSTEMS: As indicated above, otherwise a 10-point system was reviewed and negative. PHYSICAL EXAMINATION: VITAL SIGNS: Stable. O2 saturation currently on 1 liter was 92-94%. HEENT: Eyes: The sclerae were nonicteric. NECK: Jugular venous distention was not elevated. No lymphadenopathy. CHEST: Full expansion. CHEST: Adequate flow with no wheezes. CARDIOVASCULAR: Regular rate and rhythm with S1, S2, no S3. ABDOMEN: Soft. EXTREMITIES: No clubbing, cyanosis or edema. NEUROLOGIC: The patient was awake, alert, following commands. A detailed neuro exam was not performed. LABORATORY DATA: Reviewed. White count is normal. Electrolytes were normal. BUN and creatinine were elevated. AST and ALT were normal. Chest x-ray revealed cardiomegaly, basilar infiltrates. Ultrasound revealed cholelithiasis, gallbladder wall was thickened. Cannot exclude cholecystitis, fatty liver. IMPRESSION: 1. Abnormal x-ray, compatible with cardiomegaly and basilar infiltrates. 2. Cholelithiasis, possible cholecystitis. 3. Hypertension. 4. Possible diastolic heart failure. 5. Type 2 diabetes. 6. Obesity. 7. Suspect secondary pulmonary hypertension. PLAN: Respiratory status at this moment appears to be compensated. If patient requires surgery, I do not see any absolute contraindications. With that being said, we will await Cardiology input. Echocardiogram has been ordered. Clinically, the patient does not have a new pulmonary infection. I do appreciate the privilege in sharing in the patient's care. EDEN DR: Violet TID: [id number]
--- NOTE | 2021-06-25 20:35 | PDOC ---
SURGICAL PROGRESS NOTE DATE: 06/25/21 TIME: 20:34 Subjective Pt with persistent RUQ pain Vital Signs Vital Signs Date Time Temp Pulse Resp B/P (MAP) Pulse Ox O2 Delivery O2 Flow Rate FiO2 06/25/21 19:00 98.2 77 20 98/62 (74) 96 Room Air 98.2 06/25/21 15:00 1.0 I&O Intake and Output 06/25/21 06:59 Intake Total 0 ml Output Total 0 ml Balance 0 ml Intake Oral 0 ml Output Urine Total 0 ml # Voids 6 General: Alert, Oriented X3, Cooperative, mild distress Abdomen: Soft, Other (TTP RUQ) Labs Laboratory Tests Test 06/24/21 05:48 06/24/21 05:55 06/24/21 17:11 06/24/21 20:03 White Blood Count 5.7 x10^3/uL (4.0-11.0) Red Blood Count 3.93 x10^6/uL (3.50-5.40) Hemoglobin 12.3 g/dL (12.0-15.5) Hematocrit 36.6 % (36.0-47.0) Mean Corpuscular Volume 93 fL (79-100) Mean Corpuscular Hemoglobin 31 pg (25-35) Mean Corpuscular Hemoglobin Concent 34 g/dL (31-37) Red Cell Distribution Width 16.7 % (11.5-14.5) Platelet Count 230 x10^3/uL (140-400) Neutrophils (%) (Auto) 56 % (31-73) Lymphocytes (%) (Auto) 29 % (24-48) Monocytes (%) (Auto) 11 % (0-9) Eosinophils (%) (Auto) 3 % (0-3) Basophils (%) (Auto) 1 % (0-3) Neutrophils # (Auto) 3.2 x10^3/uL (1.8-7.7) Lymphocytes # (Auto) 1.7 x10^3/uL (1.0-4.8) Monocytes # (Auto) 0.6 x10^3/uL (0.0-1.1) Eosinophils # (Auto) 0.2 x10^3/uL (0.0-0.7) Basophils # (Auto) 0.0 x10^3/uL (0.0-0.2) Sodium Level 136 mmol/L (136-145) Potassium Level 4.5 mmol/L (3.5-5.1) Chloride Level 99 mmol/L (98-107) Carbon Dioxide Level 32 mmol/L (21-32) Anion Gap 5 (6-14) Blood Urea Nitrogen 41 mg/dL (7-20) Creatinine 1.3 mg/dL (0.6-1.0) Estimated GFR (Cockcroft-Gault) 39.5 BUN/Creatinine Ratio 32 (6-20) Glucose Level 131 mg/dL (70-99) Calcium Level 9.1 mg/dL (8.5-10.1) Total Bilirubin 0.4 mg/dL (0.2-1.0) Aspartate Amino Transf (AST/SGOT) 19 U/L (15-37) Alanine Aminotransferase (ALT/SGPT) 32 U/L (14-59) Alkaline Phosphatase 82 U/L (46-116) Total Protein 6.2 g/dL (6.4-8.2) Albumin 3.4 g/dL (3.4-5.0) Albumin/Globulin Ratio 1.2 (1.0-1.7) Lipase 165 U/L (73-393) Urine Collection Type Unknown Urine Color Yellow Urine Clarity Clear Urine pH 5.0 (<5.0-8.0) Urine Specific [place] 1.015 (1.000-1.030) Urine Protein Negative mg/dL (NEG-TRACE) Urine Glucose (UA) Negative mg/dL (NEG) Urine Ketones (Stick) Negative mg/dL (NEG) Urine Blood Negative (NEG) Urine Nitrite Negative (NEG) Urine Bilirubin Negative (NEG) Urine Urobilinogen Dipstick 1.0 mg/dL (0.2 mg/dL) Urine Leukocyte Esterase Trace (NEG) Urine RBC 0 /HPF (0-2) Urine WBC 5-10 /HPF (0-4) Urine Squamous Epithelial Cells Occ /LPF Urine Bacteria Few /HPF (0-FEW) Glucose (Fingerstick) 113 mg/dL (70-99) 135 mg/dL (70-99) Test 06/25/21 07:03 06/25/21 11:13 06/25/21 16:22 Glucose (Fingerstick) 119 mg/dL (70-99) 145 mg/dL (70-99) Triglycerides Level 138 mg/dL (0-150) Cholesterol Level 148 mg/dL (0-200) LDL Cholesterol, Calculated 81 mg/dL (0-100) VLDL Cholesterol, Calculated 28 mg/dL (0-40) Non-HDL Cholesterol Calculated 109 mg/dL (0-129) HDL Cholesterol 39 mg/dL (40-60) Cholesterol/HDL Ratio 3.8 Thyroid Stimulating Hormone (TSH) 1.548 uIU/mL (0.358-3.74) Laboratory Tests Test 06/25/21 07:03 06/25/21 11:13 06/25/21 16:22 Glucose (Fingerstick) 119 mg/dL (70-99) 145 mg/dL (70-99) Triglycerides Level 138 mg/dL (0-150) Cholesterol Level 148 mg/dL (0-200) LDL Cholesterol, Calculated 81 mg/dL (0-100) VLDL Cholesterol, Calculated 28 mg/dL (0-40) Non-HDL Cholesterol Calculated 109 mg/dL (0-129) HDL Cholesterol 39 mg/dL (40-60) Cholesterol/HDL Ratio 3.8 Thyroid Stimulating Hormone (TSH) 1.548 uIU/mL (0.358-3.74) Problem List Problems Medical Problems: (1) Acute calculous cholecystitis Status: Acute Assessment/Plan cholecystitis appreciate pulm and cards, moderate risk TO OR in AM for laparoscopic versus open cholecystectomy with cholangiogram. R/R/B/A d/w pt. Justicifation of Admission Dx: Justifications for Admission: Justification of Admission Dx: Yes Respiratory Failure: Severe Resp Distress SYLVESTER MICHELLE MD Jun 25, 2021 20:35
[2021-06-25] MEDS: INSULIN GLARGINE SYRINGE. SQ SCH (21:10)
[2021-06-25 23:00] VITALS: BP 105/55
[2021-06-26] VITALS (12 sets, daily range): BP systolic 99–152; BP diastolic 58–86
[2021-06-26 03:01] LABS: HEMATOCRIT 36.1 % (36.0-47.0); RED BLOOD COUNT 3.82 x10^6/uL (3.50-5.40); RED CELL DISTRIBUTION WIDTH 16.5 % (11.5-14.5); WHITE BLOOD COUNT 5.7 x10^3/uL (4.0-11.0)
[2021-06-26 03:22] LABS: ALBUMIN 3.2 g/dL (3.4-5.0); CREATININE 1.2 mg/dL (0.6-1.0); GFR 43.3; POTASSIUM 4.6 mmol/L (3.5-5.1); TOTAL BILIRUBIN 0.5 mg/dL (0.2-1.0); TOTAL PROTEIN 6.4 g/dL (6.4-8.2)
[2021-06-26] MEDS: ASPIRIN CHEWABLE 81 MG TABLET. PO SCH (07:13)
[2021-06-26] MEDS: ZINC SULFATE 220 MG CAPSULE. PO SCH (07:13)
[2021-06-26] MEDS: GABAPENTIN 300 MG CAPSULE. PO SCH ×3 (07:13→16:31)
[2021-06-26] MEDS: FUROSEMIDE 40 MG TABLET. PO SCH (07:13)
[2021-06-26] MEDS: POTASSIUM CHLORIDE 10 MEQ TABLET.ER. PO SCH (07:13)
[2021-06-26] MEDS: metFORMIN 500 MG TABLET PO SCH ×2 (07:13→16:38)
[2021-06-26] MEDS: CYANOCOBALAMIN (VITAMIN B-12) 1,000 MCG TABLET. PO SCH (07:14)
[2021-06-26] MEDS: LISINOPRIL 20 MG TABLET PO SCH (07:14)
[2021-06-26] MEDS: predniSONE 20 MG TABLET PO SCH (07:14)
--- NOTE | 2021-06-26 08:20 | PDOC ---
PULMONARY PROGRESS NOTES DATE: 06/26/21 TIME: 08:20 Vitals Vital Signs Date Time Temp Pulse Resp B/P (MAP) Pulse Ox O2 Delivery O2 Flow Rate FiO2 06/26/21 08:00 Room Air 06/26/21 03:00 98.4 80 18 99/58 (72) 92 98.4 06/25/21 15:00 1.0 General: Alert, No acute distress Labs Laboratory Tests Test 06/24/21 17:11 06/24/21 20:03 06/25/21 07:03 06/25/21 11:13 Glucose (Fingerstick) 113 mg/dL (70-99) 135 mg/dL (70-99) 119 mg/dL (70-99) Triglycerides Level 138 mg/dL (0-150) Cholesterol Level 148 mg/dL (0-200) LDL Cholesterol, Calculated 81 mg/dL (0-100) VLDL Cholesterol, Calculated 28 mg/dL (0-40) Non-HDL Cholesterol Calculated 109 mg/dL (0-129) HDL Cholesterol 39 mg/dL (40-60) Cholesterol/HDL Ratio 3.8 Thyroid Stimulating Hormone (TSH) 1.548 uIU/mL (0.358-3.74) Test 06/25/21 16:22 06/25/21 21:07 06/26/21 02:45 06/26/21 06:56 Glucose (Fingerstick) 145 mg/dL (70-99) 178 mg/dL (70-99) 127 mg/dL (70-99) White Blood Count 5.7 x10^3/uL (4.0-11.0) Red Blood Count 3.82 x10^6/uL (3.50-5.40) Hemoglobin 12.0 g/dL (12.0-15.5) Hematocrit 36.1 % (36.0-47.0) Mean Corpuscular Volume 94 fL (79-100) Mean Corpuscular Hemoglobin 31 pg (25-35) Mean Corpuscular Hemoglobin Concent 33 g/dL (31-37) Red Cell Distribution Width 16.5 % (11.5-14.5) Platelet Count 223 x10^3/uL (140-400) Sodium Level 138 mmol/L (136-145) Potassium Level 4.6 mmol/L (3.5-5.1) Chloride Level 102 mmol/L (98-107) Carbon Dioxide Level 31 mmol/L (21-32) Anion Gap 5 (6-14) Blood Urea Nitrogen 31 mg/dL (7-20) Creatinine 1.2 mg/dL (0.6-1.0) Estimated GFR (Cockcroft-Gault) 43.3 BUN/Creatinine Ratio 26 (6-20) Glucose Level 154 mg/dL (70-99) Calcium Level 9.0 mg/dL (8.5-10.1) Total Bilirubin 0.5 mg/dL (0.2-1.0) Aspartate Amino Transf (AST/SGOT) 16 U/L (15-37) Alanine Aminotransferase (ALT/SGPT) 27 U/L (14-59) Alkaline Phosphatase 73 U/L (46-116) Total Protein 6.4 g/dL (6.4-8.2) Albumin 3.2 g/dL (3.4-5.0) Albumin/Globulin Ratio 1.0 (1.0-1.7) Lipase 46 U/L (73-393) Laboratory Tests Test 06/25/21 11:13 06/25/21 16:22 06/25/21 21:07 06/26/21 02:45 Triglycerides Level 138 mg/dL (0-150) Cholesterol Level 148 mg/dL (0-200) LDL Cholesterol, Calculated 81 mg/dL (0-100) VLDL Cholesterol, Calculated 28 mg/dL (0-40) Non-HDL Cholesterol Calculated 109 mg/dL (0-129) HDL Cholesterol 39 mg/dL (40-60) Cholesterol/HDL Ratio 3.8 Thyroid Stimulating Hormone (TSH) 1.548 uIU/mL (0.358-3.74) Glucose (Fingerstick) 145 mg/dL (70-99) 178 mg/dL (70-99) White Blood Count 5.7 x10^3/uL (4.0-11.0) Red Blood Count 3.82 x10^6/uL (3.50-5.40) Hemoglobin 12.0 g/dL (12.0-15.5) Hematocrit 36.1 % (36.0-47.0) Mean Corpuscular Volume 94 fL (79-100) Mean Corpuscular Hemoglobin 31 pg (25-35) Mean Corpuscular Hemoglobin Concent 33 g/dL (31-37) Red Cell Distribution Width 16.5 % (11.5-14.5) Platelet Count 223 x10^3/uL (140-400) Sodium Level 138 mmol/L (136-145) Potassium Level 4.6 mmol/L (3.5-5.1) Chloride Level 102 mmol/L (98-107) Carbon Dioxide Level 31 mmol/L (21-32) Anion Gap 5 (6-14) Blood Urea Nitrogen 31 mg/dL (7-20) Creatinine 1.2 mg/dL (0.6-1.0) Estimated GFR (Cockcroft-Gault) 43.3 BUN/Creatinine Ratio 26 (6-20) Glucose Level 154 mg/dL (70-99) Calcium Level 9.0 mg/dL (8.5-10.1) Total Bilirubin 0.5 mg/dL (0.2-1.0) Aspartate Amino Transf (AST/SGOT) 16 U/L (15-37) Alanine Aminotransferase (ALT/SGPT) 27 U/L (14-59) Alkaline Phosphatase 73 U/L (46-116) Total Protein 6.4 g/dL (6.4-8.2) Albumin 3.2 g/dL (3.4-5.0) Albumin/Globulin Ratio 1.0 (1.0-1.7) Lipase 46 U/L (73-393) Test 06/26/21 06:56 Glucose (Fingerstick) 127 mg/dL (70-99) Medications Active Scripts Medications Dose Route/Sig Max Daily Dose Days Date Category Dose Instructions Lantus (Insulin Glargine,Hum.rec.anlog) 100 Unit/1 Ml Vial 10 Unit SQ QHS 30 04/23/20 Rx Prednisone 20 Mg Tablet 1 Tab PO DAILY 04/23/20 Rx Zinc Sulfate 220 Mg Tablet 1 Tab PO DAILY 30 04/18/20 Reported Klor-Con 10 (Potassium Chloride) 10 Meq Tablet.er 1 Tab PO DAILY 30 04/18/20 Reported Metformin Hcl 500 Mg Tablet 500 Mg PO BIDWMEALS 04/18/20 Reported Lisinopril 20 Mg Tablet 1 Tab PO DAILY 04/18/20 Reported Lasix (Furosemide) 40 Mg Tablet 1 Tab PO DAILY 30 04/18/20 Reported Gabapentin (Gabapentin) 300 Mg Capsule 300 Mg PO TID 04/18/20 Reported Vitamin D2 (Ergocalciferol (Vitamin D2)) Unknown Strength Capsule Unknown Dose PO WEEKLY 04/18/20 Reported 50,000 units weekly on tuesdays B-12 (Cyanocobalamin (Vitamin B-12)) 1,000 Mcg Tablet.er 1 Tab PO DAILY 30 04/18/20 Reported Aspirin 81 Mg Tab.chew 1 Tab PO DAILY 04/18/20 Reported Acetaminophen 325 Mg Tablet 2 Tab PO PRN Q4-6HRS PRN 24 04/18/20 Reported Amlodipine Besylate 5 Mg Tablet 5 Mg PO DAILY 04/18/20 Reported Percocet 5-325 Mg Tablet (Oxycodone/Acetaminophen) 1 Each Tablet 1 Tab PO PRN Q6HRS PRN 05/22/19 Rx Impression . IMPRESSION: 1. Abnormal x-ray, compatible with cardiomegaly and basilar infiltrates. 2. Cholelithiasis, possible cholecystitis. 3. Hypertension. 4. Possible diastolic heart failure. 5. Type 2 diabetes. 6. Obesity. 7. Suspect secondary pulmonary hypertension. ECHO <Conclusion> The left ventricular systolic function is normal and the ejection fraction is within normal range. Estimated ejection fraction 60-65%. There is normal LV segmental wall motion. Plan . PLAN: Respiratory status at this moment appears to be compensated. If patient requires surgery, I do not see any absolute contraindications. With that being said, we will await Cardiology input. Echocardiogram has been ordered. Clinically, the patient does not have a new pulmonary infection. I do appreciate the privilege in sharing in the patient's care. BRENDA JAMES MD Jun 26, 2021 08:20
[2021-06-26] MEDS ORDERED: HEPARIN 1,000 UNIT in IV NORMAL SALINE 1,000 ML for SURG PERIOP IRR ONE (09:00)
[2021-06-26] MEDS: oxyCODONE/APAP 5/325 1 TAB TABLET PO PRN ×3 (09:07→18:53)
--- NOTE | 2021-06-26 09:37 | PN ---
DATE: 06/26/2021 SUBJECTIVE: The patient is resting slightly propped up in bed, in no apparent distress. She continued to complain of pain in her right upper quadrant. Denied any other complaint. She was seen in consultation by the arm rest builder as well as the shank cutter, has had an echocardiogram done, which basically showed that her left ventricular systolic function is normal and the ejection fraction is within normal range. Ejection fraction is 60-65%. There is normal left ventricular segmental wall motion and she is apparently scheduled for a laparoscopic cholecystectomy sometime this morning. PHYSICAL EXAMINATION: GENERAL: When I examined her this morning, she looked well and was clearly in no apparent respiratory distress. There was no pallor, jaundice, cyanosis or thyromegaly. No jugular venous distention. No lower limb edema. VITAL SIGNS: Her heart rate was 77, blood pressure was 112/67, temperature was 97.9, respiratory rate was 16 and oxygen saturation was 92% on room air. HEAD, EYES, EARS, NOSE, AND THROAT: Normocephalic, atraumatic. NECK: Supple. HEART: Normal first and second heart sounds, no gallop or murmur. CHEST: Clear to auscultation, no crepitation or rhonchi. ABDOMEN: Distended, soft, nontender. Tenderness mostly in the right upper quadrant. There is no guarding or rigidity. No organomegaly. All hernial orifice intact. Bowel sounds normal. NEUROLOGIC: She is grossly intact. ASSESSMENT: Acute calculous cholecystitis, scheduled for laparoscopic versus open cholecystectomy today. The patient has multiple other medical problems including, 1. Hypertension. 2. Type 2 diabetes mellitus. 3. Morbid obesity. 4. History of multiple fractures of the right ribs. 5. Iron-deficiency anemia. 6. Chronic respiratory failure with hypoxia. 7. Anemia. 8. Hip replacement. ZAYRA DR: rAy TID: [id number]
[2021-06-26] MEDS ORDERED: ceFAZolin 2GM PREMIX 2 GM/50 ML BAG IV ONE (10:00)
[2021-06-26] MEDS ORDERED: fentaNYL PF VIAL 250 MCG/5 ML VIAL ONE (10:12)
[2021-06-26] MEDS ORDERED: PROPOFOL 10 MG/ML (20ML) VIAL. IV ONE (10:13)
[2021-06-26] MEDS ORDERED: ROCURONIUM 50 MG/5 ML VIAL. ONE (10:13)
[2021-06-26] MEDS ORDERED: ONDANSETRON PF 4 MG/2 ML VIAL. ONE (10:14)
[2021-06-26] MEDS ORDERED: LIDOCAINE 2% PF 5 ML VIAL. ONE (10:14)
[2021-06-26] MEDS ORDERED: DEXAMETHASONE SOD PHOS 4 MG/ML VIAL ONE (10:14)
[2021-06-26] MEDS ORDERED: FAMOTIDINE 20 MG/2 ML VIAL ONE (10:23)
[2021-06-26] MEDS ORDERED: IOHEXOL 300 MG/ML 50 ML VIAL. ONE (10:50)
[2021-06-26] MEDS ORDERED: SURGICEL HEMOSTAT 4X8 EACH. ONE (10:50)
[2021-06-26] MEDS ORDERED: BUPIVACAINE-EPI 0.25% 30 ML VIAL KIT. ONE (10:50)
[2021-06-26] MEDS ORDERED: SUGAMMADEX SODIUM 200 MG/2 ML VIAL. IVP ONE (11:00)
[2021-06-26] MEDS ORDERED: DEXMEDETOMIDINE 200 MCG/2 ML VIAL. IV ONE (11:00)
[2021-06-26] MEDS ORDERED: IV RINGERS,LACTATED 1000ML 1,000 ML IV ONE (12:00)
--- NOTE | 2021-06-26 12:18 | PDOC ---
SURGICAL PROGRESS NOTE DATE: 06/26/21 TIME: 12:17 Subjective Pre-Op Note 81 yo F with cholecystitis. TO OR for laparoscopic versus open cholecystectomy with cholangiogram. R/R/B/A d/w pt. Risks, including, but not limited to: bleeding, infection, damage to surrounding structures, risk of anesthesia, risk of open. She appears to understand, her questions are answered and she elects to proceed. Vital Signs Vital Signs Date Time Temp Pulse Resp B/P (MAP) Pulse Ox O2 Delivery O2 Flow Rate FiO2 06/26/21 11:51 89.2 74 16 109/60 91 Room Air 1.0 89.2 I&O Intake and Output 06/26/21 07:00 Output Total 300 ml Balance -300 ml Output Urine Total 300 ml # Voids 1 Labs Laboratory Tests Test 06/24/21 17:11 06/24/21 20:03 06/25/21 07:03 06/25/21 11:13 Glucose (Fingerstick) 113 mg/dL (70-99) 135 mg/dL (70-99) 119 mg/dL (70-99) Triglycerides Level 138 mg/dL (0-150) Cholesterol Level 148 mg/dL (0-200) LDL Cholesterol, Calculated 81 mg/dL (0-100) VLDL Cholesterol, Calculated 28 mg/dL (0-40) Non-HDL Cholesterol Calculated 109 mg/dL (0-129) HDL Cholesterol 39 mg/dL (40-60) Cholesterol/HDL Ratio 3.8 Thyroid Stimulating Hormone (TSH) 1.548 uIU/mL (0.358-3.74) Test 06/25/21 16:22 06/25/21 21:07 06/26/21 02:45 06/26/21 06:56 Glucose (Fingerstick) 145 mg/dL (70-99) 178 mg/dL (70-99) 127 mg/dL (70-99) White Blood Count 5.7 x10^3/uL (4.0-11.0) Red Blood Count 3.82 x10^6/uL (3.50-5.40) Hemoglobin 12.0 g/dL (12.0-15.5) Hematocrit 36.1 % (36.0-47.0) Mean Corpuscular Volume 94 fL (79-100) Mean Corpuscular Hemoglobin 31 pg (25-35) Mean Corpuscular Hemoglobin Concent 33 g/dL (31-37) Red Cell Distribution Width 16.5 % (11.5-14.5) Platelet Count 223 x10^3/uL (140-400) Sodium Level 138 mmol/L (136-145) Potassium Level 4.6 mmol/L (3.5-5.1) Chloride Level 102 mmol/L (98-107) Carbon Dioxide Level 31 mmol/L (21-32) Anion Gap 5 (6-14) Blood Urea Nitrogen 31 mg/dL (7-20) Creatinine 1.2 mg/dL (0.6-1.0) Estimated GFR (Cockcroft-Gault) 43.3 BUN/Creatinine Ratio 26 (6-20) Glucose Level 154 mg/dL (70-99) Calcium Level 9.0 mg/dL (8.5-10.1) Total Bilirubin 0.5 mg/dL (0.2-1.0) Aspartate Amino Transf (AST/SGOT) 16 U/L (15-37) Alanine Aminotransferase (ALT/SGPT) 27 U/L (14-59) Alkaline Phosphatase 73 U/L (46-116) Total Protein 6.4 g/dL (6.4-8.2) Albumin 3.2 g/dL (3.4-5.0) Albumin/Globulin Ratio 1.0 (1.0-1.7) Lipase 46 U/L (73-393) Test 06/26/21 10:46 Glucose (Fingerstick) 124 mg/dL (70-99) Laboratory Tests Test 06/25/21 16:22 06/25/21 21:07 06/26/21 02:45 06/26/21 06:56 Glucose (Fingerstick) 145 mg/dL (70-99) 178 mg/dL (70-99) 127 mg/dL (70-99) White Blood Count 5.7 x10^3/uL (4.0-11.0) Red Blood Count 3.82 x10^6/uL (3.50-5.40) Hemoglobin 12.0 g/dL (12.0-15.5) Hematocrit 36.1 % (36.0-47.0) Mean Corpuscular Volume 94 fL (79-100) Mean Corpuscular Hemoglobin 31 pg (25-35) Mean Corpuscular Hemoglobin Concent 33 g/dL (31-37) Red Cell Distribution Width 16.5 % (11.5-14.5) Platelet Count 223 x10^3/uL (140-400) Sodium Level 138 mmol/L (136-145) Potassium Level 4.6 mmol/L (3.5-5.1) Chloride Level 102 mmol/L (98-107) Carbon Dioxide Level 31 mmol/L (21-32) Anion Gap 5 (6-14) Blood Urea Nitrogen 31 mg/dL (7-20) Creatinine 1.2 mg/dL (0.6-1.0) Estimated GFR (Cockcroft-Gault) 43.3 BUN/Creatinine Ratio 26 (6-20) Glucose Level 154 mg/dL (70-99) Calcium Level 9.0 mg/dL (8.5-10.1) Total Bilirubin 0.5 mg/dL (0.2-1.0) Aspartate Amino Transf (AST/SGOT) 16 U/L (15-37) Alanine Aminotransferase (ALT/SGPT) 27 U/L (14-59) Alkaline Phosphatase 73 U/L (46-116) Total Protein 6.4 g/dL (6.4-8.2) Albumin 3.2 g/dL (3.4-5.0) Albumin/Globulin Ratio 1.0 (1.0-1.7) Lipase 46 U/L (73-393) Test 06/26/21 10:46 Glucose (Fingerstick) 124 mg/dL (70-99) Problem List Problems Medical Problems: (1) Acute calculous cholecystitis Status: Acute Justicifation of Admission Dx: Justifications for Admission: Justification of Admission Dx: Yes Respiratory Failure: Severe Resp Distress SYLVESTER MICHELLE MD Jun 26, 2021 12:18
[2021-06-26] MEDS ORDERED: ePHEDrine PF IN SALINE 50 MG/10 ML SYRINGE. IV ONE (12:29)
[2021-06-26] MEDS ORDERED: SEVOFLURANE 61 TO 120 MINUTES. IH ONE (13:41)
[2021-06-26] MEDS ORDERED: PHENYLEPHRINE in 0.9% NACL PF 1 MG/10 ML SYRINGE. IV ONE (13:50)
[2021-06-26] MEDS ORDERED: ONDANSETRON PF 4 MG/2 ML VIAL. IVP PRN (14:00)
[2021-06-26] MEDS ORDERED: DEXTROSE 50% 25 GM / 50ML DISP.SYRIN. IV PRN (14:00)
[2021-06-26] MEDS ORDERED: 0.9 % SODIUM CHLORIDE 10 ML DISP.SYRIN. IV PRN (14:00)
[2021-06-26] MEDS ORDERED: NALOXONE 0.4 MG/ML VIAL. IV PRN (14:00)
[2021-06-26] MEDS ORDERED: fentaNYL PF VIAL 100 MCG/2 ML VIAL IVP PRN ×2 (14:00)
[2021-06-26] MEDS: IV RINGERS,LACTATED 1000ML 1,000 ML IV SCH ×2 (14:00→20:26)
[2021-06-26] MEDS ORDERED: PROCHLORPERAZINE 10 MG/2 ML VIAL. IVP PRN (14:00)
[2021-06-26] MEDS ORDERED: IV RINGERS,LACTATED 1000ML 1,000 ML IV SCH (14:00)
[2021-06-26] MEDS ORDERED: HYDROcodone/APAP 5/325MG 1 TAB TABLET PO PRN (14:00)
[2021-06-26] MEDS ORDERED: HYDROmorphone 2 MG/ML VIAL IVP PRN (14:00)
[2021-06-26] MEDS ORDERED: MORPHINE SULFATE 2 MG/ML INJ. IVP PRN (14:00)
[2021-06-26] MEDS ORDERED: IV NORMAL SALINE 1000ML BAG 1,000 ML IV SCH (14:00)
[2021-06-26] MEDS ORDERED: INSULIN LISPRO 100 UNIT/ML 3ML VIAL for OP,RR ONLY. SQ PRN (14:00)
--- NOTE | 2021-06-26 14:03 | PDOC4 ---
OPERATIVE NOTE Date: Date: Jun 26, 2021 Pre-Op Diagnosis: Calculous cholecystitis Post-Op Diagnosis: same Procedure Performed: laparoscopic cholecystectomy with cholangiogram Surgeon: Abdon Michelle Anesthesia Type: GETA plus local Blood Loss: 50 Specimans Obtained: gallbladder Findings: indurated, gallbladder with adhesions, normal cholangiogram, fatty liver, adhesions to LUQ Complications: none Operative Note: After obtaining informed consent, patient was taken to OR, induced under GETA and prepped in the usual fashion. 5 mm ports placed umbilical and RUQ, 12 port placed epigastric, all under laparoscopic guidance. Abdominal cavity was explored and noted as above. Gallbladder was taken off fossa using cautery in dome down fashion. Anterior and posterior cystic arteries ligated with clips. Cholangiogram obtained via only remaining attached structure (cystic duct) and was normal. Cystic duct controlled with hemolok and clip. Gallbladder placed in bag, delivered and sent to pathology. Copious irrigation. No evidence of bleeding or other pathology. Ports removed without bleeding. Fascia repaired with 0 vicryl. Skin repaired with 4 0 monocyrl. Dressing placed. Patient tolerate procedure well and sent to PACU in stable condition. All counts correct. Wound class is 3. SYLVESTER MICHELLE MD Jun 26, 2021 14:03
[2021-06-26] MEDS ORDERED: fentaNYL PF VIAL 100 MCG/2 ML VIAL ONE (14:25)
[2021-06-26] MEDS: fentaNYL PF VIAL 100 MCG/2 ML VIAL IVP PRN ×2 (14:28→14:46)
[2021-06-26] MEDS: DOCUSATE SODIUM 100 MG CAPSULE. PO SCH (21:31)
[2021-06-26] MEDS: INSULIN GLARGINE SYRINGE. SQ SCH (21:32)
[2021-06-27] MEDS: oxyCODONE/APAP 5/325 1 TAB TABLET PO PRN ×2 (01:41→08:36)
[2021-06-27 03:08] VITALS: BP 128/73
[2021-06-27] MEDS: IV RINGERS,LACTATED 1000ML 1,000 ML IV SCH (06:30)
[2021-06-27 07:00] VITALS: BP 135/74
--- NOTE | 2021-06-27 08:09 | PDOC ---
PULMONARY PROGRESS NOTES DATE: 06/27/21 TIME: 08:08 Subjective Patient underwent surgery yesterday not more short of breath today Vitals Vital Signs Date Time Temp Pulse Resp B/P (MAP) Pulse Ox O2 Delivery O2 Flow Rate FiO2 06/27/21 03:08 97.8 86 18 128/73 (91) 96 Nasal Cannula 3.0 97.8 ROS: No Nausea, No Chest Pain, No Increase Cough General: Alert, No acute distress Lungs: Clear Cardiovascular: S1 Abdomen: Soft Neuro Exam: Alert Extremities: No Edema Skin: Warm Labs Laboratory Tests Test 06/25/21 11:13 06/25/21 16:22 06/25/21 21:07 06/26/21 02:45 Triglycerides Level 138 mg/dL (0-150) Cholesterol Level 148 mg/dL (0-200) LDL Cholesterol, Calculated 81 mg/dL (0-100) VLDL Cholesterol, Calculated 28 mg/dL (0-40) Non-HDL Cholesterol Calculated 109 mg/dL (0-129) HDL Cholesterol 39 mg/dL (40-60) Cholesterol/HDL Ratio 3.8 Thyroid Stimulating Hormone (TSH) 1.548 uIU/mL (0.358-3.74) Glucose (Fingerstick) 145 mg/dL (70-99) 178 mg/dL (70-99) White Blood Count 5.7 x10^3/uL (4.0-11.0) Red Blood Count 3.82 x10^6/uL (3.50-5.40) Hemoglobin 12.0 g/dL (12.0-15.5) Hematocrit 36.1 % (36.0-47.0) Mean Corpuscular Volume 94 fL (79-100) Mean Corpuscular Hemoglobin 31 pg (25-35) Mean Corpuscular Hemoglobin Concent 33 g/dL (31-37) Red Cell Distribution Width 16.5 % (11.5-14.5) Platelet Count 223 x10^3/uL (140-400) Sodium Level 138 mmol/L (136-145) Potassium Level 4.6 mmol/L (3.5-5.1) Chloride Level 102 mmol/L (98-107) Carbon Dioxide Level 31 mmol/L (21-32) Anion Gap 5 (6-14) Blood Urea Nitrogen 31 mg/dL (7-20) Creatinine 1.2 mg/dL (0.6-1.0) Estimated GFR (Cockcroft-Gault) 43.3 BUN/Creatinine Ratio 26 (6-20) Glucose Level 154 mg/dL (70-99) Calcium Level 9.0 mg/dL (8.5-10.1) Total Bilirubin 0.5 mg/dL (0.2-1.0) Aspartate Amino Transf (AST/SGOT) 16 U/L (15-37) Alanine Aminotransferase (ALT/SGPT) 27 U/L (14-59) Alkaline Phosphatase 73 U/L (46-116) Total Protein 6.4 g/dL (6.4-8.2) Albumin 3.2 g/dL (3.4-5.0) Albumin/Globulin Ratio 1.0 (1.0-1.7) Lipase 46 U/L (73-393) Test 06/26/21 06:56 06/26/21 10:46 06/26/21 14:22 06/26/21 17:00 Glucose (Fingerstick) 127 mg/dL (70-99) 124 mg/dL (70-99) 171 mg/dL (70-99) 152 mg/dL (70-99) Test 06/26/21 19:24 06/27/21 07:21 Glucose (Fingerstick) 237 mg/dL (70-99) 134 mg/dL (70-99) Laboratory Tests Test 06/26/21 10:46 06/26/21 14:22 06/26/21 17:00 06/26/21 19:24 Glucose (Fingerstick) 124 mg/dL (70-99) 171 mg/dL (70-99) 152 mg/dL (70-99) 237 mg/dL (70-99) Test 06/27/21 07:21 Glucose (Fingerstick) 134 mg/dL (70-99) Medications Active Scripts Medications Dose Route/Sig Max Daily Dose Days Date Category Dose Instructions Lantus (Insulin Glargine,Hum.rec.anlog) 100 Unit/1 Ml Vial 10 Unit SQ QHS 30 04/23/20 Rx Prednisone 20 Mg Tablet 1 Tab PO DAILY 04/23/20 Rx Zinc Sulfate 220 Mg Tablet 1 Tab PO DAILY 30 04/18/20 Reported Klor-Con 10 (Potassium Chloride) 10 Meq Tablet.er 1 Tab PO DAILY 30 04/18/20 Reported Metformin Hcl 500 Mg Tablet 500 Mg PO BIDWMEALS 04/18/20 Reported Lisinopril 20 Mg Tablet 1 Tab PO DAILY 04/18/20 Reported Lasix (Furosemide) 40 Mg Tablet 1 Tab PO DAILY 30 04/18/20 Reported Gabapentin (Gabapentin) 300 Mg Capsule 300 Mg PO TID 04/18/20 Reported Vitamin D2 (Ergocalciferol (Vitamin D2)) Unknown Strength Capsule Unknown Dose PO WEEKLY 04/18/20 Reported 50,000 units weekly on tuesdays B-12 (Cyanocobalamin (Vitamin B-12)) 1,000 Mcg Tablet.er 1 Tab PO DAILY 30 04/18/20 Reported Aspirin 81 Mg Tab.chew 1 Tab PO DAILY 04/18/20 Reported Acetaminophen 325 Mg Tablet 2 Tab PO PRN Q4-6HRS PRN 24 04/18/20 Reported Amlodipine Besylate 5 Mg Tablet 5 Mg PO DAILY 04/18/20 Reported Percocet 5-325 Mg Tablet (Oxycodone/Acetaminophen) 1 Each Tablet 1 Tab PO PRN Q6HRS PRN 05/22/19 Rx Impression . IMPRESSION: 1. Abnormal x-ray, compatible with cardiomegaly and basilar infiltrates. 2. Cholelithiasis, possible cholecystitis. 3. Hypertension. 4. Possible diastolic heart failure. 5. Type 2 diabetes. 6. Obesity. 7. Suspect secondary pulmonary hypertension. ECHO <Conclusion> The left ventricular systolic function is normal and the ejection fraction is within normal range. Estimated ejection fraction 60-65%. There is normal LV segmental wall motion. Plan . Respiratory status compensated Incentive spirometry Okay to discharge PLAN: Respiratory status at this moment appears to be compensated. If patient requires surgery, I do not see any absolute contraindications. With that being said, we will await Cardiology input. Echocardiogram has been ordered. Clinically, the patient does not have a new pulmonary infection. I do appreciate the privilege in sharing in the patient's care. BRENDA JAMES MD Jun 27, 2021 08:09
[2021-06-27 08:22] LABS: BASO % 0 % (0-3); EOS % 0 % (0-3); HEMATOCRIT 36.2 % (36.0-47.0); HEMOGLOBIN 11.8 g/dL (12.0-15.5); LYMPH # 0.6 x10^3/uL (1.0-4.8); LYMPH % 8 % (24-48); MEAN CORPUSCULAR HEMOGLOBIN 31 pg (25-35); MEAN CORPUSCULAR HGB CONC 33 g/dL (31-37); MEAN CORPUSCULAR VOLUME 95 fL (79-100); MONO # 0.6 x10^3/uL (0.0-1.1); MONO % 8 % (0-9); NEUT # 6.7 x10^3/uL (1.8-7.7); NEUT % 85 % (31-73); PLATELET COUNT 248 x10^3/uL (140-400); RED CELL DISTRIBUTION WIDTH 16.5 % (11.5-14.5); WHITE BLOOD COUNT 7.9 x10^3/uL (4.0-11.0)
[2021-06-27] MEDS: CYANOCOBALAMIN (VITAMIN B-12) 1,000 MCG TABLET. PO SCH (08:35)
[2021-06-27] MEDS: ASPIRIN CHEWABLE 81 MG TABLET. PO SCH (08:36)
[2021-06-27] MEDS: POTASSIUM CHLORIDE 10 MEQ TABLET.ER. PO SCH (08:36)
[2021-06-27] MEDS: FUROSEMIDE 40 MG TABLET. PO SCH (08:36)
[2021-06-27] MEDS: predniSONE 20 MG TABLET PO SCH (08:36)
[2021-06-27] MEDS: ZINC SULFATE 220 MG CAPSULE. PO SCH (08:36)
[2021-06-27] MEDS: DOCUSATE SODIUM 100 MG CAPSULE. PO SCH (08:38)
[2021-06-27] MEDS: GABAPENTIN 300 MG CAPSULE. PO SCH (08:38)
[2021-06-27] MEDS: LISINOPRIL 20 MG TABLET PO SCH (08:38)
[2021-06-27 08:42] LABS: ALBUMIN 3.2 g/dL (3.4-5.0); CALCIUM 8.8 mg/dL (8.5-10.1); GFR 53.5; POTASSIUM 4.2 mmol/L (3.5-5.1); TOTAL BILIRUBIN 0.5 mg/dL (0.2-1.0); TOTAL PROTEIN 6.5 g/dL (6.4-8.2)
[2021-06-27] MEDS: metFORMIN 500 MG TABLET PO SCH (08:43)
[2021-06-27] MEDS ORDERED: HYDR-2761 PO (09:51)
--- NOTE | 2021-06-27 09:53 | SNU/HH DC ---
DISCHARGE ORDERS DISCHARGE INFORMATION: DISCHARGE DATE: Jun 27, 2021 FINAL DIAGNOSIS Problems Medical Problems: (1) Acute calculous cholecystitis Status: Acute CONDITION ON DISCHARGE: Stable CODE STATUS: Code Status: Full LONGTERM: SNF STAY <30 DAYS: Yes POST DISCHARGE ORDERS: ACTIVITY ORDERS: Activity as tolerated WEIGHT BEARING STATUS: As tolerated DIET AFTER DISCHARGE: Cardiac WOUND/INCISION CARE: Keep wound/cast CDI CHECKS AFTER DISCHARGE: CHECKS AFTER DISCHARGE: Check blood press - daily, Check blood sugar, ac/hs, Check your Temp as needed, Weigh Yourself Daily TREATMENT/EQUIPMENT ORDERS: RESPIRATORY EQUIPMENT NEEDED: Oxygen Physical Therapy For: Evalulation/Treatment Occupational Therapy For: Evaluation/Treatment DISCHARGE MEDICATIONS: Home Meds Active Scripts Hydrocodone Bit/Acetaminophen (HYDROCODONE-APAP 5-325 ) 1 Tab Tablet, 1 TAB PO PRN Q6HRS PRN for PAIN for 30 Days, #120 TAB 0 Refills Prov:MARIELLE YOUSSEF MD 06/27/21 Insulin Glargine,Hum.rec.anlog (LANTUS) 100 Unit/1 Ml Vial, 10 UNIT SQ QHS for DM for 30 Days, #15 VIAL Prov:MARIELLE YOUSSEF MD 04/23/20 Prednisone (PREDNISONE) 20 Mg Tablet, 1 TAB PO DAILY for COVID 19 PNEUMONIA, #5 TAB Prov:MARIELLE YOUSSEF MD 04/23/20 Oxycodone/Apap 5-325 (PERCOCET 5-325 MG TABLET ) 1 Each Tablet, 1 TAB PO PRN Q6HRS PRN for PAIN, #10 TAB 0 Refills Prov:JOELLEN CARRASQUILLO HEMSTITCHING MACHINE OPERATOR 05/22/19 Reported Medications Zinc Sulfate (ZINC SULFATE) 220 Mg Tablet, 1 TAB PO DAILY for supplement for 30 Days, #30 TAB 0 Refills 04/18/20 Potassium Chloride (Klor-Con 10) 10 Meq Tablet.er, 1 TAB PO DAILY for diuretic for 30 Days, #30 TAB 0 Refills 04/18/20 Metformin Hcl (METFORMIN HCL) 500 Mg Tablet, 500 MG PO BIDWMEALS for ANTI- DIABETIC, TAB 0 Refills 04/18/20 Lisinopril (LISINOPRIL) 20 Mg Tablet, 1 TAB PO DAILY for bp, #30 TAB 5 Refills 04/18/20 Furosemide (LASIX) 40 Mg Tablet, 1 TAB PO DAILY for edema for 30 Days, #30 TAB 0 Refills 04/18/20 Gabapentin (GABAPENTIN ) 300 Mg Capsule, 300 MG PO TID for NEUROGENIC PAIN, CAP 04/18/20 Ergocalciferol (Vitamin D2) (Vitamin D2) Unknown Strength Capsule, PO WEEKLY for supplement, CAP 50,000 units weekly on tuesdays04/18/20 Cyanocobalamin (Vitamin B-12) (B-12) 1,000 Mcg Tablet.er, 1 TAB PO DAILY for anemia for 30 Days, #30 TAB 0 Refills 04/18/20 Aspirin (ASPIRIN) 81 Mg Tab.chew, 1 TAB PO DAILY for antiplatelet, #30 TAB 3 Refills 04/18/20 Acetaminophen (ACETAMINOPHEN) 325 Mg Tablet, 2 TAB PO PRN Q4-6HRS PRN for pain or fever for 24 Days, #100 TAB 0 Refills 04/18/20 Amlodipine Besylate (AMLODIPINE BESYLATE) 5 Mg Tablet, 5 MG PO DAILY for bp, TAB 04/18/20 MARIELLE YOUSSEF MD Jun 27, 2021 09:53
--- NOTE | 2021-06-27 10:07 | PN ---
DATE: 06/27/2021 SUBJECTIVE: The patient is sitting comfortably in her chair in no apparent respiratory distress. She underwent laparoscopic cholecystectomy successfully yesterday. On questioning her today, she did well. Denied any complaint, in particular, denied nausea or vomiting. Denied any abdominal pain. PHYSICAL EXAMINATION: GENERAL: When I examined her, she looked well and was clearly in no apparent respiratory distress. She is slightly pale, not jaundiced, cyanosed, no lymphadenopathy, no thyromegaly, no jugular venous distention. No lower limb edema. VITAL SIGNS: Her heart rate was 78, blood pressure was 135/74, temperature was 98, respiratory rate was 20 and oxygen saturation was 94% on 3 liters of oxygen. HEAD, EYES, EARS, NOSE, AND THROAT: Normocephalic, atraumatic. NECK: Supple. HEART: Showed normal first and second heart sounds. No gallop, rub or murmur. CHEST: Clear to auscultation, no crepitation or rhonchi. ABDOMEN: Distended, soft, nontender, no guarding or rigidity. No organomegaly. All hernial orifice intact. Bowel sounds normal. NEUROLOGIC: She is awake, alert, responding appropriately. All cranial nerves intact. She moves extremities without difficulty. Her intake and output were incompletely recorded. LABORATORY DATA: Her lab work this morning showed a white cell count of 7900, hemoglobin 12, hematocrit 36, MCV 95 and platelet count of 248,000. Her serum sodium 141, potassium 4.2, chloride 99, bicarbonate 35, anion gap of 7, BUN 22, creatinine 1, estimated GFR was 53 mL per minute. Her glucose 136, calcium was 8.8. Total bilirubin and alkaline phosphatase normal. AST, ALT slightly elevated. Total protein 6.5, albumin 3.2. ASSESSMENT: 1. Acute calculous cholecystitis, status post laparoscopic cholecystectomy. The patient has multiple other medical problems including: A. Hypertension. B. Type 2 diabetes mellitus. C. Morbid obesity. D. Chronic hypoxic respiratory failure. E. Anemia. F. History of multiple right-sided rib fractures. G. Acute kidney injury that has improved. PLAN: My plan is to discontinue the IV fluid. Await the COVID status and if it is negative, the patient can be discharged back to [facility]. SEAMUS/DAYRON DR: SEAMUS/fide TID: [id number]
--- NOTE | 2021-06-27 10:56 | NUR ---
SW following. Discussed with RN, clinicals and discharge orders faxed to [facility]. Transportation arranged by [facility] for around 1300. RN notified.
[2021-06-27 11:00] VITALS: BP 113/70
--- NOTE | 2021-06-27 13:21 | NUR ---
Discharge Note: JEANNE MON [address] Discharge instructions and discharge home medications reviewed with Genaro PARIKH of [facility] and a copy given to the transport personnel. The following instructions and handouts were given: May shower, no baths. Home meds as directed Follow up with PCP in weeks Discontinued lines and drains: peripheral IV intact, no complications noted. Patient discharged to [facility] via WC on RA at 1320.
[2021-07-02] MEDS ORDERED: ERGOCALCIFEROL (VITAMIN D2) 50,000 UNIT CAPSULE. PO SCH (09:00)
--- NOTE | 2021-07-02 11:08 | PATHOLOGY ---
[facility] Accession Number: [id number] . 01 Material submitted: . gallbladder - GALLBLADDER . 01 Clinician provided ICD-10: y . 01 Clinical history: . CHOLECYSTITIS L/S CHOLECYSTECTOMY CHOLECYSTITIS, CHOLELITHIASIS . 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 - Lithiasis. - Negative for malignancy. ([facility]; 07/01/2021) [facility] 07/02/2021 1007 Local . 02 Electronically signed: . Benjie Ba MD, Pathologist NPI- [id number] . 01 Gross description: . Fixative: Formalin Labeled: Gallbladder Specimen received: Intact gallbladder Dimensions: 8.5 x 4.0 x 3.5 cm Serosa: Light aldana-huerta and bile-stained Lymph node: None identified Mucosa: Velvety and bile-stained Average wall thickness: 0.3 cm Calculi: Present, dark brown-yellow and multifaceted to granular Abnormalities: None identified . A1- Field Assistant body, fundus, and the cystic duct margin. ([facility]; 06/30/2021) [facility] 06/30/2021 1333 Local . 02 Pathologist provided ICD-10: K80.10 . 02 CPT . 884713 Specimen Comment: A courtesy copy of this report has been sent [phone] Specimen Comment: [phone], Specimen Comment: Report sent to , DR YOUSSEF / DR BINGHAM Performed at: [address], [place], [place] [id number] MD Nicho Cat MD Phone: [phone] Performed at: 02 [facility] [address] [place], [place] [id number] MD Kwan Hope MD Phone: [phone]
== END 2021-06-27 13:06 | disposition still patient (30) | DRG 418 ==
LOC: ER 04:55 → ED HOLD 08:42 → 5 SOUTH 14:30
PROVIDERS: ADMIT Internal Medicine; ATTEND Internal Medicine
PROC: BF101ZZ Fluoroscopy of Bile Ducts using Low Osmolar Contrast (ICD-10-PCS; 2021-06-26)
PROC: 0FT44ZZ Resection of Gallbladder, Percutaneous Endoscopic Approach (ICD-10-PCS; principal; 2021-06-26 12:00)
DX: K80.00 Calculus of gallbladder with acute cholecystitis without obstruction (principal); J96.11 Chronic respiratory failure with hypoxia; N17.9 Acute kidney failure, unspecified; Z68.41 Body mass index [BMI] 40.0-44.9, adult; D50.9 Iron deficiency anemia, unspecified; E11.65 Type 2 diabetes mellitus with hyperglycemia; E66.01 Morbid (severe) obesity due to excess calories; E78.5 Hyperlipidemia, unspecified; K76.0 Fatty (change of) liver, not elsewhere classified; K82.8 Other specified diseases of gallbladder; Z83.3 Family history of diabetes mellitus; Z87.891 Personal history of nicotine dependence; Z96.641 Presence of right artificial hip joint; K21.9 Gastro-esophageal reflux disease without esophagitis; M19.90 Unspecified osteoarthritis, unspecified site; Z90.49 Acquired absence of other specified parts of digestive tract; Z20.822 Contact with and (suspected) exposure to COVID-19; Z88.0 Allergy status to penicillin; Z88.8 Allergy status to other drugs, medicaments and biological substances; Z87.81 Personal history of (healed) traumatic fracture; I10 Essential (primary) hypertension
CPT/HCPCS: 36415; 71045; 74300; 76705; 80053; 80061; 81001; 82962; 83690; 84443; 85025; 85027; 87086; 88304; 93306; 96361; 96374; 96375; A4213; A4314; A4930; C1887; J0690; J0694; J1100; J1815; J1956; J2370; J2405; J2704; J3010; J3490; J7030; J7120; J7512; Q9967; U0003; 99285-25; G0378

== ENCOUNTER → 2021-12-31 | Outpatient (CLI) | payer OTHER ==
[~2021-12-31] MED LIST changes: +HYDR-2761 PO
--- NOTE | 2021-12-31 16:52 | RAD ---
CT LUMBAR SPINE WO History: Pain. Technique: Noncontrast CT was performed of the lumbar spine. Multiplanar reconstructions were perform ed. Comparison: None Findings: There are 5 nonrib-bearing lumbar vertebral bodies. No fracture identified. Mild anterolisthesis of L 4 on L5. Multilevel degenerative disc and facet disease. T12-L1: Circumferential endplate osteophytes most prominent anteriorly. No significant spinal canal o r neural foraminal narrowing. L1-L2: Moderate disc height loss with endplate osteophytes. Mild facet hypertrophy. Disc bulge narrow s the spinal canal to approximately 9 mm AP. Moderate bilateral neural foraminal narrowing. L2-L3: Moderate disc space narrowing severe right greater than left facet hypertrophy and disc bulge with endplate osteophytes narrow the spinal canal severely to approximately 5 mm. Severe left, modera te right neural foraminal narrowing. L3-L4: Severe disc space narrowing with endplate osteophytes and disc bulge with moderate bilateral f acet hypertrophy. Spinal canal is narrowed approximately 9 mm. Severe bilateral neural foraminal sten osis. L4-L5: Mild disc height loss with vacuum disc phenomenon and small disc bulge. Severe bilateral facet hypertrophy. Moderate spinal canal stenosis to approximately 6 mm AP. Severe bilateral neural forami nal stenosis. L5-S1: Severe disc height loss and bilateral facet hypertrophy with endplate osteophytes and disc bul ge. No significant spinal canal narrowing. Severe bilateral neural foraminal stenosis. Surgical clips are present at the region of the distal pancreas-splenic hilum. There is a large calci fied left nephrolith measuring 1.3 cm x 2.3 cm. No hydronephrosis. Aorta iliac calcification without aneurysm. Cholecystectomy clips. Hypoattenuation liver compatible steatosis. Impression: 1. Severe lumbar degenerative disc and facet disease with severe spinal canal stenosis, greatest at L2-L3 where the AP diameter is approximately 5 mm. 2. Multilevel moderate or greater neural foraminal stenosis with potential for symptomatic radiculop athy at multiple levels bilaterally. 3. Nonobstructing large left nephrolith. Exposure: One or more of the following individualized dose reduction techniques were utilized for thi s examination: 1. Automated exposure control 2. Adjustment of the mA and/or kV according to patient size 3. Use of iterative reconstruction technique. Electronically signed by: Kevin Camacho MD (12/31/2021 4:50 PM) [facility]
== END ==
LOC: CT 14:31
PROVIDERS: ATTEND Internal Medicine
DX: M51.36 Other intervertebral disc degeneration, lumbar region (principal); M48.07 Spinal stenosis, lumbosacral region; M51.27 Other intervertebral disc displacement, lumbosacral region; M25.78 Osteophyte, vertebrae; N20.0 Calculus of kidney; I70.8 Atherosclerosis of other arteries; M43.16 Spondylolisthesis, lumbar region; Z90.49 Acquired absence of other specified parts of digestive tract
CPT/HCPCS: 72131